=== PATIENT | female | born 1960 | race Caucasian/White ===

== ENCOUNTER 2016-11-07 16:54 | Emergency (ER) | payer MEDICAID, MEDICARE ==
[~2016-11-07] VITALS: Ht 165.1 cm; Wt 74.0 kg
[~2016-11-07 16:54] MED LIST: ALBU8I INH; ASPI325T PO; BACT2CRE TOP; CALC500C6 PO; DILA4TAB10 PO; FOLI1TAB PO; GABA800T PO; MUCI600T PO; OMEP40CA2 PO; PERC10TA27 PO; PRED1TAB PO; PROZ20CA11 PO; STOO100T PO; XANA0.5T PO
[2016-11-07 17:01] VITALS: BP 143/75; PULSE 103; RESP 19; TEMP 98.1; O2SAT 95
[2016-11-07] MEDS ORDERED: SODIUM CHLORIDE 0.9% FLUSH 10 ML FLUSH IVF PRN (17:30)
[2016-11-07 17:38] VITALS: RESP 15; O2SAT 96
[2016-11-07] MEDS: RESP: ALBUTEROL 2.5 MG/IPRATROPIUM 0.5 MG NEB (SCH) INH ×3 (17:45→17:51)
--- NOTE | 2016-11-07 17:50 | PD ---
HPI Chief Complaint: Respiratory Symptoms Time Seen by Provider: 17:16 Travel History International Travel<30 days: No Contact w/Intl Traveler<30days: No Traveled to known affect area: No History of Present Illness HPI Patient's 56-year-old female with a history of "immunocompromise" presents emergency department for evaluation of cough worsening over the past week. Patient is coming by her mother and they think that she has pneumonia. Patient clarifies to mean that she has a history of vasculitis and is on prednisone 10 mg daily for control of this. She states that her counts been well and no other immunosuppressant use. Patient states she's not currently smoking but ordinarily smokes a pack plus a day. Denies any fever. She does endorse congestion and nonproductive dry cough. States symptoms are moderate and gradually worsening. 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 ) Anxiety: Yes Depression: No Heart Rhythm Problems: Yes (MURMUR) Cancer: No Cardiac Catheterization: No Cardiovascular Problems: No High Cholesterol: No Chemotherapy: No Chest Pain: No Congestive Heart Failure: No COPD: Yes Cerebrovascular Accident: No Diabetes: No Diminished Hearing: No Endocrine: No Gastrointestinal Disorders: Yes GERD: Yes Genitourinary: No Headaches: No Hiatal Hernia: No Hypertension: No Immune Disorder: Yes (reynauds, vasculitis, REESE) Implanted Vascular Access Dvce: No Kidney Stones: No Musculoskeletal: Yes (left paralyzed foot) Neurologic: Yes Psychiatric: Yes Reproductive: No Respiratory: No Immunizations Current: No Migraines: No Myocardial Infarction: No Pancreatitis: Yes Radiation Therapy: No Renal Failure: No Seizures: No Sickle Cell Disease: No Sleep Apnea: No Thyroid Disease: No ?: Not Menopausal: Yes Dilation and Curettage (D&C): Yes Tubal Ligation: Yes Past Surgical History AICD: No Appendectomy: Yes Arteriovenous Shunt: No Body Medical Devices: GEL BREAST IMPLANTS Cardiac Surgery: No Coronary Artery Bypass Graft: No Ear Surgery: No Endocrine Surgery: No Eye Surgery: Yes (L orbital fx and subsequent plate 2008) Gynecologic Surgery: Yes (HYSTERECTOMY,D&C, TUBAL LIGATION) Hysterectomy: Yes Insulin Pump: No Joint Replacement: No Neurologic Surgery: No Oral Surgery: Yes Pacemaker: No Thoracic Surgery: No Tonsillectomy: Yes Other Surgery: Yes (PILONIDAL CYST/ Breast implants) Family History Family Myocardial Infarction: Yes (dad) Social History Alcohol Use: Yes (OCC) Tobacco Use: Yes (1/2 -ppd ) Substance Use: No Allergies-Medications (Allergen,Severity, Reaction): Coded Allergies: No Known Allergies (Verified , 11/07/16) Reported Meds & Prescriptions Reported Meds & Active Scripts Active Proair Hfa 8.5 GM Inh (Albuterol Sulfate) 90 Mcg/Act Aer 1 Puff INH Q4H PRN 108 mcg/actuation Azithromycin 250 Mg Tab 250 Mg PO DAILY Prednisone 20 Mg Tab 60 Mg PO DAILY 4 Days Percocet 10-325 mg (Oxycodone-Acetaminophen 10-325 mg) 1 Tab 1 Tab PO Q6H PRN Ventolin Hfa (Albuterol Sulfate) 8 Gm Aero 2 Puff INH Q6 PRN * SHAKE WELL BEFORE USE * okay to substitute with pro-air Reported Mucinex (Guaifenesin) 600 Mg Tabcr 600 Mg PO BID Stool Softener (Miscellaneous Medication) 100 Mg Cap 100 Mg PO DAILY Bactroban 2% Cream (30 gm) (Mupirocin 2% Cream (30 gm)) 2 % Cre 2 % TOP Q12 APPLY TO Dilaudid (Hydromorphone HCl) 4 Mg Tab 4 Mg PO Q4H Prednisone 1 Mg Tab 10 Mg PO DAILY Calcium (Calcium Carbonate) 500 Mg Chw 500 Mg PO BID Prozac (Fluoxetine HCl) 20 Mg Cap 20 Mg PO BID Omeprazole 40 mg (Omeprazole) 40 Mg Cap 40 Mg PO DAILY Xanax 0.5 mg (Alprazolam) 0.5 Mg Tab 0.5 Mg PO TID PRN Aspirin 325 Mg Tab (Aspirin) 325 Mg Tab 325 Mg PO BID Gabapentin 800 Mg Tab 800 Mg PO TID PRN Folate (Folic Acid) 1 Mg Tab 1 Mg PO HS Review of Systems Except as stated in HPI: all other systems reviewed are Neg Physical Exam Narrative GENERAL: Well-developed well-nourished, nontoxic appearance. SKIN: Focused skin assessment warm/dry. HEAD: Atraumatic. Normocephalic. EYES: Pupils equal and round. No scleral icterus. No injection or drainage. ENT: No nasal bleeding or discharge. Mucous membranes pink and moist. NECK: Trachea midline. No JVD. CARDIOVASCULAR: Regular rate and rhythm. No murmur appreciated. RESPIRATORY: No accessory muscle use. Inspiratory and expiratory wheezes and rhonchi consistent with bronchitis. Breath sounds equal bilaterally. GASTROINTESTINAL: Abdomen soft, non-tender, nondistended. Hepatic and splenic margins not palpable. MUSCULOSKELETAL: No obvious deformities. No clubbing. No cyanosis. No edema. NEUROLOGICAL: Awake and alert. No obvious cranial nerve deficits. Motor grossly within normal limits. Normal speech. PSYCHIATRIC: Appropriate mood and affect; insight and judgment normal. Data Data Last Documented VS Vital Signs Date Time Temp Pulse Resp B/P Pulse Ox O2 Delivery O2 Flow Rate FiO2 11/07/16 20:09 20 96 11/07/16 19:04 109 Room Air 11/07/16 19:04 146/77 11/07/16 17:01 98.1 Orders Electrocardiogram (11/07/16 17:26) Basic Metabolic Panel (Bmp) (11/07/16 17:26) Complete Blood Count With Diff (11/07/16 17:26) Chest, Pa & Lat (11/07/16 17:26) Ecg Monitoring (11/07/16 17:26) Iv Access Insert/Monitor (11/07/16 17:26) Oximetry (11/07/16 17:26) Oxygen Administration (11/07/16 17:26) Albuterol-Ipratropium Neb (Duoneb Neb) (11/07/16 17:30) Sodium Chloride 0.9% Flush (Ns Flush) (11/07/16 17:30) Azithromycin (Zithromax) (11/07/16 19:00) Albuterol Hfa Inh (Proair Hfa Inh) (11/07/16 19:00) Prednisone (Deltasone) (11/07/16 19:00) Labs Laboratory Tests Test 11/07/16 17:52 White Blood Count 16.2 TH/MM3 Red Blood Count 5.99 MIL/MM3 Hemoglobin 15.6 GM/DL Hematocrit 49.6 % Mean Corpuscular Volume 82.8 FL Mean Corpuscular Hemoglobin 25.9 PG Mean Corpuscular Hemoglobin 31.3 % Concent Red Cell Distribution Width 16.0 % Platelet Count 452 TH/MM3 Mean Platelet Volume 7.7 FL Neutrophils (%) (Auto) 78.0 % Lymphocytes (%) (Auto) 17.9 % Monocytes (%) (Auto) 3.4 % Eosinophils (%) (Auto) 0.4 % Basophils (%) (Auto) 0.3 % Neutrophils # (Auto) 12.7 TH/MM3 Lymphocytes # (Auto) 2.9 TH/MM3 Monocytes # (Auto) 0.5 TH/MM3 Eosinophils # (Auto) 0.1 TH/MM3 Basophils # (Auto) 0.0 TH/MM3 CBC Comment DIFF FINAL Differential Comment Sodium Level 140 MEQ/L Potassium Level 3.8 MEQ/L Chloride Level 101 MEQ/L Carbon Dioxide Level 32.4 MEQ/L Anion Gap 7 MEQ/L Blood Urea Nitrogen 14 MG/DL Creatinine 1.00 MG/DL Estimat Glomerular Filtration 58 ML/MIN Rate Random Glucose 99 MG/DL Calcium Level 10.2 MG/DL MDM Medical Decision Making Medical Screen Exam Complete: Yes Emergency Medical Condition: Yes Interpretation(s) EKG shows sinus tachycardia at a rate of 103, normal axis normal R-wave progression. No concerning ST-T changes. Intervals otherwise within normal limits. This is a normal EKG except are. EKG was performed after DuoNeb therapy. Differential Diagnosis Bronchitis, pneumonia, COPD, Narrative Course Patient was roomed emergency department, chest x-ray showed no abnormality. Her lung sounds are highly consistent with wheezing bronchitis. Labs are reassuring. She does have minimal elevation of white blood cell count but is on chronic steroids. I discussed the impression with the patient and recommended symptomatically management. She is feeling better after DuoNeb treatments. Discussed need follow-up the primary care physician. Discussed smoking cessation at multiple times during the encounter. She does have a history of vasculitis and accommodation was smoking puts her at extreme risk for stroke in the future. Discussed return to ED criteria. She stable for discharge this time. Diagnosis Primary Impression: Bronchitis Patient Instructions: Acute Bronchitis (DC), General Instructions, How to Stop Smoking (DC) Med/Other Pt SpecificInfo: Prescription(s) given Scripts Albuterol 8.5 GM Inh (Proair Hfa 8.5 GM Inh)90 Mcg/Act Aer1 Puff INH Q4H PRN ( SHORTNESS OF BREATH) #1 INHALER Ref 0 108 mcg/actuation Prov:Gen Ku MD 11/07/16 Azithromycin 250 Mg [id number] Mg PO DAILY #4 TAB Ref 0 Prov:Gen Ku MD 11/07/16 Prednisone 20 Mg Tab60 Mg PO DAILY 4 Days Ref 0 Prov:Gen Ku MD 11/07/16 Disposition: 01 DISCHARGE HOME Condition: Stable Gen Ku MD November 07, 2016 17:50
--- NOTE | 2016-11-07 17:55 | RADHPO ---
EXAM DATE/TIME: 11/07/2016 17:37 [facility] COMPARISON: CHEST PA & LAT, July 12, 2015, 14:32. INDICATIONS : Short of breath. Weakness. MEDICAL HISTORY : None. SURGICAL HISTORY : None. ENCOUNTER: Initial ACUITY: 3 days PAIN SCORE: 7/10 LOCATION: Bilateral chest FINDINGS: PA and lateral views of the chest demonstrate the lungs to be symmetrically aerated without evidence of mass, infiltrate or effusion. The cardiomediastinal contours are unremarkable. Osseous structure s are intact. CONCLUSION: No acute disease. Izaiah Toney MD FACR on November 07, 2016 at 17:53 Board Certified Radiologist. This report was verified electronically.
[2016-11-07 18:03] LABS: AUTOMATED NEUTROPHIL # 12.7 TH/MM3 (1.8-7.7); BASOPHIL % 0.3 % (0.0-2.0); EOSINOPHIL # 0.1 TH/MM3 (0-0.4); EOSINOPHIL % 0.4 % (0.0-4.0); HEMATOCRIT 49.6 % (35.0-46.0); LYMPH % 17.9 % (9.0-44.0); LYMPHOCYTE # 2.9 TH/MM3 (1.0-4.8); MEAN CELL VOLUME 82.8 FL (80.0-100.0); MEAN CORPUSCULAR HEMOGLOBIN 25.9 PG (27.0-34.0); MEAN CORPUSCULAR HGB CONC 31.3 % (32.0-36.0); MONO % 3.4 % (0.0-8.0); PLATELET COUNT 452 TH/MM3 (150-450); RED BLOOD COUNT 5.99 MIL/MM3 (4.00-5.30); WHITE BLOOD COUNT 16.2 TH/MM3 (4.0-11.0)
[2016-11-07 18:08] LABS: HEMO FLAGS DIFF FINAL
[2016-11-07 18:16] LABS: POTASSIUM 3.8 MEQ/L (3.5-5.1)
[2016-11-07 18:19] LABS: BICARBONATE 32.4 MEQ/L (21.0-32.0)
[2016-11-07] MEDS ORDERED: ALBUAER3 INH (18:55)
[2016-11-07] MEDS ORDERED: PRED20 PO (18:55)
[2016-11-07] MEDS ORDERED: AZIT250T3 PO (18:55)
[2016-11-07] MEDS ORDERED: AZITHROMYCIN 250 MG TAB PO ONE (19:00)
[2016-11-07] MEDS ORDERED: predniSONE 20 MG TAB PO ONE (19:00)
[2016-11-07] MEDS ORDERED: ALBUTEROL SULFATE 90 MCG/ACT HFA 8 GM INHALER INH ONE (19:00)
[2016-11-07 19:04] VITALS: BP 146/77; PULSE 108; RESP 20; O2SAT 98
--- NOTE | 2016-11-08 14:49 | EKG ---
Date Performed: 11/07/2016 Time Performed: 18:15:28 PTAGE: 56 years EKG: Sinus tachycardia Normal ECG except for rate PREVIOUS TRACING : 12/22/2014 11.39 Since previous tracing, no significant change noted DOCTOR: Krzysztof Mcmullen Interpretating Date/Time 11/08/2016 14:49:29
== END 2016-11-07 20:10 | disposition home or self-care (01) ==
LOC: PHED 16:54
DX: J40 Bronchitis, not specified as acute or chronic (principal); I77.6 Arteritis, unspecified; R00.0 Tachycardia, unspecified; I73.00 Raynaud's syndrome without gangrene; F41.9 Anxiety disorder, unspecified; R01.1 Cardiac murmur, unspecified; J44.9 Chronic obstructive pulmonary disease, unspecified; F17.210 Nicotine dependence, cigarettes, uncomplicated
CPT/HCPCS: 71020; 80048; 85025; 93005; 94640; 94664; 99285; J7512

== ENCOUNTER 2016-12-23 21:42 | Inpatient (IN) | payer MEDICARE, MEDICAID ==
[~2016-12-23] VITALS: Ht 165.1 cm; Wt 76.5 kg
[~2016-12-23 21:42] MED LIST changes: +ALBUAER3 INH; +AZIT250T3 PO; +PRED20 PO
[2016-12-23 21:53] VITALS: BP 128/67; PULSE 101; RESP 16; TEMP 99.4; O2SAT 98
[2016-12-23 22:30] VITALS: BP 124/70; PULSE 96; RESP 18; O2SAT 95
[2016-12-23] MEDS ORDERED: ONDANSETRON HCL 4 MG/2 ML VIAL IV PUSH ONE (22:45)
[2016-12-23] MEDS ORDERED: HYDROmorphone HCL PF 1 MG/ML VIAL IV PUSH ONE (22:45)
[2016-12-23] MEDS ORDERED: methylPREDNISolone SOD SUCC 125 MG/2 ML VIAL IV PUSH ONE (22:45)
--- NOTE | 2016-12-23 22:46 | PD ---
HPI Chief Complaint: aching all over Time Seen by Provider: 22:18 Travel History International Travel<30 days: No Contact w/Intl Traveler<30days: No Traveled to known affect area: No History of Present Illness HPI This 56-year-old female says she is aching all over. She says she has an autoimmune disease. She has many notes disease and vasculitis. She was well until December 2012 when she became paralyzed in the left foot. This was attributed to autoimmune disease. She sees . She is currently on Imuran 50 mg a day and prednisone 10 mg. She has been on Dilaudid. She was on 4 mg 4 times a day but has been tapered to 2 mg twice a day. She had bilateral mastectomy done a few months ago because she had artificial breaths and was thought she might be having an autoimmune reaction to the implants. Today she is having some left-sided chest pain. She aches all over area she has pain in the left side of her mouth. She has lost several teeth and has been told that due to her autoimmune disease. She says that nobody can figure out wrong with her. She has got [facility] and they cannot figure it out. She has been having intermittent headache for the past month. She says she has no prior history of headaches. She has a throbbing bilateral headache which is sometimes occipital. She has no numbness tingling or paresthesias except for the weakness of the left foot foot. 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 ) Anxiety: Yes Depression: No Heart Rhythm Problems: Yes (MURMUR) Cancer: No Cardiac Catheterization: No Cardiovascular Problems: No High Cholesterol: No Chemotherapy: No Chest Pain: No Congestive Heart Failure: No COPD: Yes Cerebrovascular Accident: No Diabetes: No Diminished Hearing: No Endocrine: No Gastrointestinal Disorders: Yes GERD: Yes Genitourinary: No Headaches: No Hiatal Hernia: No Hypertension: No Immune Disorder: Yes (reynauds, vasculitis, REESE) Implanted Vascular Access Dvce: No Kidney Stones: No Musculoskeletal: Yes (left paralyzed foot) Neurologic: Yes Psychiatric: Yes Reproductive: No Respiratory: No Immunizations Current: No Migraines: No Myocardial Infarction: No Pancreatitis: Yes Radiation Therapy: No Renal Failure: No Seizures: No Sickle Cell Disease: No Sleep Apnea: No Thyroid Disease: No Menopausal: Yes Dilation and Curettage (D&C): Yes Tubal Ligation: Yes Past Surgical History AICD: No Appendectomy: Yes Arteriovenous Shunt: No Body Medical Devices: GEL BREAST IMPLANTS Cardiac Surgery: No Coronary Artery Bypass Graft: No Ear Surgery: No Endocrine Surgery: No Eye Surgery: Yes (L orbital fx and subsequent plate 2009) Gynecologic Surgery: Yes (HYSTERECTOMY,D&C, TUBAL LIGATION) Hysterectomy: Yes Insulin Pump: No Joint Replacement: No Neurologic Surgery: No Oral Surgery: Yes Pacemaker: No Thoracic Surgery: No Tonsillectomy: Yes Other Surgery: Yes (PILONIDAL CYST/ Breast implants) Social History Alcohol Use: Yes (OCC) Tobacco Use: Yes (/2 -ppd ) Substance Use: No Allergies-Medications (Allergen,Severity, Reaction): Coded Allergies: No Known Allergies (Verified , 11/07/16) Reported Meds & Prescriptions Reported Meds & Active Scripts Active Medrol Dosepak (Methylprednisolone) 4 Mg Dspk 4 Mg PO DIRECTED Per Pharmacist direction Penicillin V Potassium 500 Mg Tab 500 Mg PO Q6H Proair Hfa 8.5 GM Inh (Albuterol Sulfate) 90 Mcg/Act Aer 1 Puff INH Q4H PRN 108 mcg/actuation Azithromycin 250 Mg Tab 250 Mg PO DAILY Prednisone 20 Mg Tab 60 Mg PO DAILY 4 Days Percocet 10-325 mg (Oxycodone-Acetaminophen 10-325 mg) 1 Tab 1 Tab PO Q6H PRN Ventolin Hfa (Albuterol Sulfate) 8 Gm Aero 2 Puff INH Q6 PRN * SHAKE WELL BEFORE USE * okay to substitute with pro-air Reported Mucinex (Guaifenesin) 600 Mg Tabcr 600 Mg PO BID Stool Softener (Miscellaneous Medication) 100 Mg Cap 100 Mg PO DAILY Bactroban 2% Cream (30 gm) (Mupirocin 2% Cream (30 gm)) 2 % Cre 2 % TOP Q12 APPLY TO Dilaudid (Hydromorphone HCl) 4 Mg Tab 4 Mg PO Q4H Prednisone 1 Mg Tab 10 Mg PO DAILY Calcium (Calcium Carbonate) 500 Mg Chw 500 Mg PO BID Prozac (Fluoxetine HCl) 20 Mg Cap 20 Mg PO BID Omeprazole 40 mg (Omeprazole) 40 Mg Cap 40 Mg PO DAILY Xanax 0.5 mg (Alprazolam) 0.5 Mg Tab 0.5 Mg PO TID PRN Aspirin 325 Mg Tab (Aspirin) 325 Mg Tab 325 Mg PO BID Gabapentin 800 Mg Tab 800 Mg PO TID PRN Folate (Folic Acid) 1 Mg Tab 1 Mg PO HS Review of Systems General / Constitutional: No: Fever, Chills Eyes: Positive: Drainage, No: Diploplia HENT: Positive: Headaches Cardiovascular: Positive: Chest Pain or Discomfort Respiratory: No: Cough, Shortness of Breath Gastrointestinal: No: Nausea, Vomiting Genitourinary: No: Urgency, Frequency Musculoskeletal: No: Myalgias, Arthralgias Skin: No Rash, No Itching Neurologic: Positive: Weakness, No: Dizziness Physical Exam Narrative GENERAL: Anxious female SKIN: Focused skin assessment warm/dry. HEAD: Atraumatic. Normocephalic. EYES: Pupils equal and round. No scleral icterus. No injection or drainage. ENT: No nasal bleeding or discharge. Mucous membranes pink and moist. There are several teeth missing. She is tender in the left upper gumline NECK: Trachea midline. No JVD. CARDIOVASCULAR: Regular rate and rhythm. No murmur appreciated. RESPIRATORY: No accessory muscle use. Clear to auscultation. Breath sounds equal bilaterally. Left precordial tenderness GASTROINTESTINAL: Abdomen soft, non-tender, nondistended. Hepatic and splenic margins not palpable. MUSCULOSKELETAL: No obvious deformities. No clubbing. No cyanosis. No edema. NEUROLOGICAL: Awake and alert. No obvious cranial nerve deficits. Distal left foot PSYCHIATRIC: Appropriate mood and affect; insight and judgment normal. Data Data Last Documented VS Vital Signs Date Time Temp Pulse Resp B/P Pulse Ox O2 Delivery O2 Flow Rate FiO2 12/23/16 23:30 103.1 96 18 108/66 97 Room Air Orders Electrocardiogram (12/23/16 22:36) Complete Blood Count With Diff (12/23/16 22:36) Basic Metabolic Panel (Bmp) (12/23/16 22:36) Troponin I (12/23/16 22:36) Westergren Sedimentation Rate (12/23/16 22:36) Methylprednisolone So Succ Inj (Solumedr (12/23/16 22:45) Hydromorphone Pf Inj (Dilaudid Pf Inj) (12/23/16 22:45) Ondansetron Inj (Zofran Inj) (12/23/16 22:45) Ct Brain W/O Iv Contrast(Rout) (12/23/16 ) Urinalysis - C+S If Indicated (12/23/16 23:35) Chest, Single Ap (12/23/16 23:35) Acetaminophen (Tylenol) (12/23/16 23:45) Labs Laboratory Tests Test 12/23/16 23:00 White Blood Count 13.4 TH/MM3 Red Blood Count 5.30 MIL/MM3 Hemoglobin 13.9 GM/DL Hematocrit 43.1 % Mean Corpuscular Volume 81.3 FL Mean Corpuscular Hemoglobin 26.3 PG Mean Corpuscular Hemoglobin 32.3 % Concent Red Cell Distribution Width 16.7 % Platelet Count 255 TH/MM3 Mean Platelet Volume 7.4 FL Neutrophils (%) (Auto) 83.2 % Lymphocytes (%) (Auto) 9.7 % Monocytes (%) (Auto) 4.2 % Eosinophils (%) (Auto) 1.5 % Basophils (%) (Auto) 1.4 % Neutrophils # (Auto) 11.1 TH/MM3 Lymphocytes # (Auto) 1.3 TH/MM3 Monocytes # (Auto) 0.6 TH/MM3 Eosinophils # (Auto) 0.2 TH/MM3 Basophils # (Auto) 0.2 TH/MM3 CBC Comment DIFF FINAL Differential Comment Erythrocyte Sedimentation Rate 6 mm/hr Sodium Level 138 MEQ/L Potassium Level 3.9 MEQ/L Chloride Level 104 MEQ/L Carbon Dioxide Level 25.4 MEQ/L Anion Gap 9 MEQ/L Blood Urea Nitrogen 16 MG/DL Creatinine 0.81 MG/DL Estimat Glomerular Filtration 74 ML/MIN Rate Random Glucose 85 MG/DL Calcium Level 8.9 MG/DL Troponin I LESS THAN 0.02 NG/ML [facility] Medical Decision Making Medical Screen Exam Complete: Yes Emergency Medical Condition: Yes Medical Record Reviewed: Yes Differential Diagnosis Differential includes dental abscess, autoimmune disease, headache Narrative Course After initial evaluation patient's temperature was repeated and is come back at 103. This point a more complete sepsis evaluation has been ordered including blood cultures urine and chest x-ray. Results are pending Scripts Methylprednisolone Dosepak (Medrol Dosepak)4 Mg Dspk4 Mg PO DIRECTED #1 DSPK Ref 0 Per Pharmacist direction Prov:Darci Nelson MD 12/23/16 Penicillin V Potassium 500 Mg [id number] Mg PO Q6H #40 TAB Ref 0 Prov:Darci Nelson MD 12/23/16 Darci Nelson MD Dec 23, 2016 22:46
[2016-12-23] MEDS ORDERED: MEDR4PAK PO (22:47)
[2016-12-23] MEDS ORDERED: PENI500T PO (22:47)
[2016-12-23 23:15] LABS: AUTOMATED NEUTROPHIL # 11.1 TH/MM3 (1.8-7.7); BASOPHIL # 0.2 TH/MM3 (0-0.2); BASOPHIL % 1.4 % (0.0-2.0); EOSINOPHIL # 0.2 TH/MM3 (0-0.4); EOSINOPHIL % 1.5 % (0.0-4.0); HEMATOCRIT 43.1 % (35.0-46.0); LYMPH % 9.7 % (9.0-44.0); LYMPHOCYTE # 1.3 TH/MM3 (1.0-4.8); MEAN CELL VOLUME 81.3 FL (80.0-100.0); MEAN CORPUSCULAR HEMOGLOBIN 26.3 PG (27.0-34.0); MEAN CORPUSCULAR HGB CONC 32.3 % (32.0-36.0); MONO % 4.2 % (0.0-8.0); NEUT % 83.2 % (16.0-70.0); PLATELET COUNT 255 TH/MM3 (150-450); RED CELL DISTRIBUTION WIDTH 16.7 % (11.6-17.2); WHITE BLOOD COUNT 13.4 TH/MM3 (4.0-11.0)
[2016-12-23 23:17] LABS: HEMO FLAGS DIFF FINAL
[2016-12-23 23:25] LABS: CHLORIDE 104 MEQ/L (98-107); POTASSIUM 3.9 MEQ/L (3.5-5.1); SODIUM (NA) 138 MEQ/L (136-145)
[2016-12-23 23:28] LABS: ANION GAP 9 MEQ/L (5-15); BICARBONATE 25.4 MEQ/L (21.0-32.0); BLOOD UREA NITROGEN 16 MG/DL (7-18)
[2016-12-23 23:30] VITALS: BP 108/66; PULSE 96; RESP 18; TEMP 103.1; O2SAT 97
[2016-12-23 23:31] LABS: GLOMERULAR FILTRATION RATE 74 ML/MIN (>89)
[2016-12-23] MEDS ORDERED: ACETAMINOPHEN 325 MG TAB PO ONE (23:45)
[2016-12-24] VITALS (36 sets, daily range): BP systolic 85–146; BP diastolic 40–61; PULSE 42–102; RESP 16–33; TEMP 97.4–100.9; O2SAT 90–97
[2016-12-24] MEDS ORDERED: SODIUM CHLOR 0.9% 1000 ML INJ 1,000 ML IV ONE ×4 (00:15→04:30)
--- NOTE | 2016-12-24 00:25 | RADRPT ---
EXAM DATE/TIME: 12/23/2016 23:42 [facility] COMPARISON: CHEST SINGLE AP, April 03, 2014, 16:23. INDICATIONS : Fever starting today MEDICAL HISTORY : None. SURGICAL HISTORY : None. ENCOUNTER: Initial ACUITY: 1 day PAIN SCORE: 0/10 LOCATION: Bilateral chest FINDINGS: Single AP view of the chest. The lungs are clear. Cardiomediastinal silhouette within normal limits. No evidence of pleural effusion or pneumothorax. CONCLUSION: No acute cardiopulmonary disease identified. Denny Clark MD on December 24, 2016 at 0:22 Board Certified Radiologist. This report was verified electronically.
--- NOTE | 2016-12-24 00:25 | PD ---
Physical Exam Date Seen by Provider: Dec 24, 2016 Time Seen by Provider: 00:24 Narrative Accepted in transfer of care from Dr. Hartmann GENERAL: Well-developed well-nourished female in no apparent distress or discomfort; GCS 15 SKIN: Warm and dry. HEAD: Normocephalic. EYES: No scleral icterus. No injection or drainage. ENT: Mucous membranes moist airway is patent; no gingival edema fluctuance or tenderness or purulent drainage to area of left axilla; poor dentition throughout. Bilateral tympanic membranes no redness no dullness to loss of landmarks. NECK: Supple, trachea midline. No JVD or lymphadenopathy. Supple no meningismus no nuchal rigidity on flexion and extension. CARDIOVASCULAR: Regular rate and rhythm without murmurs, gallops, or rubs. RESPIRATORY: Breath sounds equal bilaterally. No accessory muscle use. GASTROINTESTINAL: Abdomen soft, non-tender, nondistended. MUSCULOSKELETAL: No cyanosis, or edema. BACK: Nontender without obvious deformity. No CVA tenderness. Data Data Last Documented VS Vital Signs Date Time Temp Pulse Resp B/P Pulse Ox O2 Delivery O2 Flow Rate FiO2 12/24/16 01:25 99.3 85 18 107/57 95 Room Air Orders Electrocardiogram (12/23/16 22:36) Complete Blood Count With Diff (12/23/16 22:36) Basic Metabolic Panel (Bmp) (12/23/16 22:36) Troponin I (12/23/16 22:36) Westergren Sedimentation Rate (12/23/16 22:36) Methylprednisolone So Succ Inj (Solumedr (12/23/16 22:45) Hydromorphone Pf Inj (Dilaudid Pf Inj) (12/23/16 22:45) Ondansetron Inj (Zofran Inj) (12/23/16 22:45) Ct Brain W/O Iv Contrast(Rout) (12/23/16 ) Urinalysis - C+S If Indicated (12/23/16 23:35) Chest, Single Ap (12/23/16 23:35) Acetaminophen (Tylenol) (12/23/16 23:45) Blood Culture (12/24/16 00:14) Lactic Acid Sepsis Protocol (12/24/16 00:14) Sodium Chlor 0.9% 1000 Ml Inj (Ns 1000 M (12/24/16 00:15) Act Partial Throm Time (Ptt) (12/24/16 01:18) Prothrombin Time / Inr (Pt) (12/24/16 01:18) Vancomycin Inj (Vancomycin Inj) (12/24/16 01:30) Piperacil-Tazo 4.5 Gm Premix (Zosyn 4.5 (12/24/16 01:30) Vital Signs (Adult) Q4H (12/24/16 01:40) Activity Oob With Assistance (12/24/16 01:40) Air Brush Decorator / Telemetry .CONTINUOUS (12/24/16 01:40) Diet Heart Healthy (12/24/16 Breakfast) Sodium Chloride 0.9% Flush (Ns Flush) (12/24/16 01:45) Sodium Chloride 0.9% Flush (Ns Flush) (12/24/16 09:00) Basic Metabolic Panel (Bmp) (12/25/16 06:00) Complete Blood Count With Diff (12/25/16 06:00) Case Management Consult (12/24/16 01:40) Naloxone Inj (Narcan Inj) (12/24/16 01:45) Admit To Inpatient (12/24/16 ) Inpatient Certification (12/24/16 ) Admit Order (Ed Use Only) (12/24/16 ) ^ Saline Lock (12/24/16 01:41) Resp Oxygen David C Titrat 1-4 L (12/24/16 ) Notify Dr: Other (12/24/16 01:41) Vancomycin Consult Pharmacy (Vancomycin (12/24/16 01:45) Piperacil-Tazo 4.5 Gm Premix (Zosyn 4.5 (12/24/16 08:00) Labs Laboratory Tests Test 12/23/16 12/24/16 12/24/16 23:00 00:15 00:35 White Blood Count 13.4 TH/MM3 Red Blood Count 5.30 MIL/MM3 Hemoglobin 13.9 GM/DL Hematocrit 43.1 % Mean Corpuscular Volume 81.3 FL Mean Corpuscular Hemoglobin 26.3 PG Mean Corpuscular Hemoglobin 32.3 % Concent Red Cell Distribution Width 16.7 % Platelet Count 255 TH/MM3 Mean Platelet Volume 7.4 FL Neutrophils (%) (Auto) 83.2 % Lymphocytes (%) (Auto) 9.7 % Monocytes (%) (Auto) 4.2 % Eosinophils (%) (Auto) 1.5 % Basophils (%) (Auto) 1.4 % Neutrophils # (Auto) 11.1 TH/MM3 Lymphocytes # (Auto) 1.3 TH/MM3 Monocytes # (Auto) 0.6 TH/MM3 Eosinophils # (Auto) 0.2 TH/MM3 Basophils # (Auto) 0.2 TH/MM3 CBC Comment DIFF FINAL Differential Comment Erythrocyte Sedimentation Rate 6 mm/hr Sodium Level 138 MEQ/L Potassium Level 3.9 MEQ/L Chloride Level 104 MEQ/L Carbon Dioxide Level 25.4 MEQ/L Anion Gap 9 MEQ/L Blood Urea Nitrogen 16 MG/DL Creatinine 0.81 MG/DL Estimat Glomerular Filtration 74 ML/MIN Rate Random Glucose 85 MG/DL Calcium Level 8.9 MG/DL Troponin I LESS THAN 0.02 NG/ML Urine Color YELLOW Urine Turbidity SLIGHT Urine pH 7.0 Urine Specific [place] 1.023 Urine Protein TRACE mg/dL Urine Glucose (UA) NEG mg/dL Urine Ketones NEG mg/dL Urine Occult Blood SMALL Urine Nitrite NEG Urine Bilirubin NEGATIVE Urine Leukocyte Esterase TRACE Urine RBC 4-9 /hpf Urine WBC 0-2 /hpf Urine Squamous Epithelial 6-8 /hpf Cells Urine Bacteria OCC /hpf Microscopic Urinalysis Comment CULT NOT INDICATED Lactic Acid Level 1.2 mmol/L [facility] Medical Record Reviewed: Yes Supervised Visit with RODOLFO: No Interpretation(s) Last Impressions Chest X-Ray 12/23/16 2335 Signed Impressions: Service Date/Time: Friday, December 23, 2016 23:42 - CONCLUSION: No acute cardiopulmonary disease identified. Denny Clark MD Head CT 12/23/16 0000 Signed Impressions: Service Date/Time: Friday, December 23, 2016 23:43 - CONCLUSION: No acute intracranial findings. Denyn Clark MD CBC & BMP Diagram 12/23/16 23:00 Vital Signs Date Time Temp Pulse Resp B/P Pulse Ox O2 Delivery O2 Flow Rate FiO2 12/24/16 01:25 99.3 85 18 107/57 95 Room Air 12/24/16 00:29 18 12/24/16 00:15 100.9 102 18 112/53 95 Room Air 12/23/16 23:30 103.1 96 18 108/66 97 Room Air 12/23/16 23:00 Room Air 12/23/16 22:30 96 18 124/70 95 Room Air 12/23/16 21:53 99.4 101 16 128/67 98 Differential Diagnosis Accepted in transfer of care from Dr. Hartmann; please refer to his dictation Narrative Course Accepted in transfer of care from Dr. Hartmann for pending imaging studies and patient disposition with plan to admit for IV antibiotics with history of autoimmune disorder with immunosuppression and developing fever during stay in the ED -- unclear source and pending cultures; also pendnig CT and CXR CT brain noncontrast reveals no acute abnormality; chest x-ray no lobar infiltrate or vascular congestion or effusion; total white cell count is mildly elevated with 13,400 white cell count and 82% neutrophils by automated differential; metabolic panel is found to be in normal range sedimentation rate is 6, not elevated lactic acid is 1.2, not elevated urinalysis is thinking head with anticipated squamous cell contamination 6-8 squamous epithelial cells culture not indicated. Patient reports that she feels well has defervesced after acetaminophen for fever. Patient reexamined again; again no meningismus or nuchal rigidity. Patient aware of plan for admission for IV fluids IV antibiotics and pending culture results as no obvious source of infection Patient's case discussed with on-call [facility] MD -- [facility] with presumptive IV antibiotic coverage and patient with no obvious source of infection mild leukocytosis fever and immunocompromised due to autoimmune disorder. Patient waiting for admission to floor has received Zosyn presumptively and an process of receiving vancomycin developed urticarial rash with pruritus and lowered blood pressure given 2 L bolus of normal saline; admitting physician aware of allergic reaction to vancomycin which has been discontinued patient administered Benadryl 25 mg IV Pepcid 2 mg IV had previously received Solu- Medrol 125 mg IV and epinephrine 1-1000 0.3 cc IM; blood pressure 105/52 heart rate 72 respirations 18 and nonlabored with O2 saturation of 95-96% on room air ; denies any lip tongue or throat swelling no visible angioedema no stridor or hoarseness lung sounds are clear to auscultation; no nausea no vomiting no abdominal cramping. @ 4:09 AM after discontinuing vancomycin; administering benadryl 25 mg iv pepcid 20 mg iv and epinephrine 1:100 0.3ml im urticaria right wrist resolved. @ 05:55 patient remains an ED hold and again hypotensive BP: 89/47 HR 82; O2 sat 97% RR: 16-18 non labored; Physical Trainer notified and [facility] MD admitting MD notified and admission will be changed to ICU; per vacuum form operator Dr Camacho has seen patient in the ED will see patient in consultation; discussed with Dr Carrera --patient will stay on [facility] service with vacuum form operator consultation. In view of chronic steroid therapy and recent pulse dose of steroid --will cover for adrenal insufficiency with solucortef Sepsis Criteria SIRS Criteria (2 or more): Temp > 100.9 or < 96.8, Heart rate over 90, WBC > 49406, < 4000 or > 10% bands Sepsis Criteria (SIRS+source): Infect source susp/known Criteria Outcome: Meets SIRS criteria, Meets sepsis criteria Physician Communication Physician Communication discussed with Dr Carrera for admission Diagnosis Primary Impression: Sepsis Qualified Code: A41.9 - Sepsis, due to unspecified organism Additional Impression: Allergic reaction to drug Qualified Code: T78.40XA - Allergic reaction to drug, initial encounter Admitting Information Admitting Physician Requests: Admit Camila Hooks MD Dec 24, 2016 00:25
--- NOTE | 2016-12-24 00:39 | RADRPT ---
EXAM DATE/TIME: 12/23/2016 23:43 [place] COMPARISON: CT BRAIN W/O CONTRAST, July 12, 2015, 15:03. INDICATIONS : Cephalgia. RADIATION DOSE: 63.01 CTDIvol (mGy) MEDICAL HISTORY : None SURGICAL HISTORY : None. ENCOUNTER: Initial ACUITY: 1 day PAIN SCALE: 8/10 LOCATION: cranial TECHNIQUE: Multiple contiguous axial images were obtained of the head. Using automated exposure control and adj ustment of the mA and/or kV according to patient size, radiation dose was kept as low as reasonably a chievable to obtain optimal diagnostic quality images. DICOM format image data is available electro nically for review and comparison. FINDINGS: CEREBRUM: The ventricles are normal for age. No evidence of midline shift, mass lesion, hemorrhage or acute in farction. No extra-axial fluid collections are seen. POSTERIOR FOSSA: The cerebellum and brainstem are intact. The 4th ventricle is midline. The cerebellopontine angle i s unremarkable. EXTRACRANIAL: The visualized portion of the orbits is intact. SKULL: The calvaria is intact. No evidence of skull fracture. CONCLUSION: No acute intracranial findings. Denny Clark MD on December 24, 2016 at 0:34 Board Certified Radiologist. This report was verified electronically.
[2016-12-24] MEDS ORDERED: ALPR.5 PO (00:50)
[2016-12-24] MEDS ORDERED: ASPI325T PO (00:51)
[2016-12-24] MEDS ORDERED: CALC600T4 PO (00:53)
[2016-12-24] MEDS ORDERED: PRED10 PO (00:54)
[2016-12-24] MEDS ORDERED: IMUR50TA PO (00:54)
[2016-12-24] MEDS ORDERED: FOLI1TAB6 PO (00:55)
[2016-12-24] MEDS ORDERED: PROZ20CA11 PO (00:55)
[2016-12-24] MEDS ORDERED: GABA800T PO (00:56)
[2016-12-24] MEDS ORDERED: DILA2TAB2 PO (00:56)
[2016-12-24 01:04] LABS: URINE COLOR YELLOW (YELLW/STRAW)
[2016-12-24 01:05] LABS: BLOOD, URINE SMALL (NEG); GLUCOSE,URINE NEG (NEG); KETONE, URINE NEG (NEG); NITRITE,URINE NEG (NEG)
[2016-12-24 01:06] LABS: BACTERIA, URINE OCC /hpf; COMMENT (UR) CULT NOT INDICATED; CULTURE IF INDICATED CULT NOT INDICATED; WBC, URINE 0-2 /hpf (0-5)
[2016-12-24] MEDS ORDERED: PIPERACIL-TAZO 4.5 GM PREMIX 100 ML IV ONE (01:30)
[2016-12-24] MEDS ORDERED: VANCOMYCIN INJ 1,000 MG in SODIUM CHLOR 0.9% 250 ML INJ 250 ML IV ONE (01:30)
[2016-12-24] MEDS ORDERED: Vancomycin Consult Pharmacy 1 EA OTHER SCH (01:45)
[2016-12-24] MEDS ORDERED: SODIUM CHLORIDE 0.9% FLUSH 10 ML FLUSH IV FLUSH PRN ×2 (01:45→03:45)
[2016-12-24] MEDS ORDERED: SODIUM CHLORIDE 0.9% FLUSH 10 ML FLUSH IVF PRN (01:45)
[2016-12-24] MEDS ORDERED: NALOXONE HCL 0.4 MG/ML AMP IV PRN (01:45)
[2016-12-24 02:44] LABS: APTT (PATIENT) 29.1 SEC (24.3-30.1); PROTHROMBIN TIME - PATIENT 11.6 SEC (9.8-11.6)
[2016-12-24] MEDS ORDERED: FAMOTIDINE 20 MG/2 ML VIAL IV PUSH ONE (03:45)
[2016-12-24] MEDS ORDERED: diphenhydrAMINE HCL 50 MG/ML VIAL IVP ONE (03:45)
[2016-12-24] MEDS ORDERED: EPINEPHrine HCL (1:1000) 1 MG/ML VIAL IM ONE (04:00)
[2016-12-24] MEDS ORDERED: HYDROCORTISONE SOD SUCCINATE 100 MG VIAL IV PUSH ONE (06:15)
[2016-12-24] MEDS ORDERED: LINEZOLID 600 MG PREMIX 300 ML IV ONE (06:15)
[2016-12-24] MEDS: PIPERACIL-TAZO 4.5 GM PREMIX 100 ML IV SCH ×3 (08:00→20:32)
--- NOTE | 2016-12-24 08:34 | EKG ---
Date Performed: 12/23/2016 Time Performed: 23:28:52 PTAGE: 56 years EKG: Sinus rhythm NORMAL ECG PREVIOUS TRACING : 11/07/2016 18.15 No significant change from previous tracing noted. DOCTOR: David Rangel Interpretating Date/Time 12/24/2016 08:33:33
[2016-12-24] MEDS ORDERED: SODIUM CHLORIDE 0.9% FLUSH 10 ML FLUSH IV FLUSH SCH (09:00)
[2016-12-24] MEDS: PANTOPRAZOLE SOD 40 MG DELAYED RELEASE TAB PO SCH (09:00)
[2016-12-24] MEDS: SODIUM CHLORIDE 0.9% FLUSH 10 ML FLUSH IV FLUSH SCH ×2 (09:00→20:33)
--- NOTE | 2016-12-24 11:40 | HHI.HP ---
HPI Service [facility] Primary Care Physician Non-Staff Admission Diagnosis sepsis Diagnoses: Travel History International Travel<30 Days: No Contact w/Intl Traveler <30 Da: No Traveled to Known Affected Are: No History of Present Illness 56-year-old female with PMH of REESE/Raynauds, left dropped foot, who came to the ED for further evaluation with complaints of aching all over like she was hit by a bus. She says she has an autoimmune disease. She has many notes disease and vasculitis. She was well until December 2012 when she became paralyzed in the left foot. This was attributed to autoimmune disease. She sees her rheumatology. She is currently on Imuran 50 mg a day and prednisone 10 mg. She has been on Dilaudid. She was on 4 mg 4 times a day but has been tapered to 2 mg twice a day. She had bilateral mastectomy done a few months ago because she had artificial breaths and was thought she might be having an autoimmune reaction to the implants. Today she is having some left-sided chest pain. She aches all over area she has pain in the left side of her mouth. She has lost several teeth and has been told that due to her autoimmune disease. She says that nobody can figure out what's wrong with her. She has got [facility] and they cannot figure it out. She has been having intermittent headache for the past month. She says she has no prior history of headaches. She has a throbbing bilateral headache which is sometimes occipital. She has no numbness tingling or paresthesias except for the weakness of the left foot foot. Says she has left paralyzed foot and dropped foot. Review of Systems Except as stated in HPI: all other systems reviewed are Neg Past Family Social History Past Medical History REESE/Raynauds, left dropped foot, depression/anxiety Past Surgical History Hysterectomy, D&C, tubal ligation Left orbital fracture and subsequent plate placement in 2008 Had gel breast implants status post removal recently approximately one month ago Reported Medications Reported Meds & Active Scripts Active Proair Hfa 8.5 GM Inh (Albuterol Sulfate) 90 Mcg/Act Aer 1 Puff INH Q4H PRN 108 mcg/actuation Reported Dilaudid (Hydromorphone HCl) 2 Mg Tab 2 Mg PO BID Gabapentin 800 Mg Tab 800 Mg PO TID Folic Acid 1 Mg Tablet 1 Mg PO HS Prozac (Fluoxetine HCl) 20 Mg Cap 20 Mg PO BID Imuran (Azathioprine) 50 Mg Tab 50 Mg PO DAILY Hazardous agent: use appropriate precautions for handling and disposal. Prednisone 10 Mg Tab 10 Mg PO DAILY Calcium Carbonate 1,500 Mg Tab 500 Mg PO BID 1,500 mg calcium carbonate (600 mg elemental calcium) Aspirin 325 Mg Tab 325 Mg PO BID Xanax (Alprazolam) 0.5 Mg Tab 0.5 Mg PO BID PRN Allergies: Coded Allergies: Vancomycin (Verified Allergy, Severe, Rash, 12/24/16) 12/24/16 Family History Mother with COPD Social History Occasional alcohol use. Denies illicit drug use. She is smoking cigarettes half a pack a day Physical Exam Vital Signs Vital Signs Date Time Temp Pulse Resp B/P Pulse Ox O2 Delivery O2 Flow Rate FiO2 12/24/16 11:00 50 22 117/50 12/24/16 10:00 54 24 109/50 91 12/24/16 09:00 60 33 108/52 91 12/24/16 08:00 97.5 52 16 92/42 94 12/24/16 07:51 103/45 12/24/16 07:25 97.6 57 16 116/54 92 Room Air 12/24/16 06:40 84 18 104/49 97 Room Air 12/24/16 05:45 97.6 88 18 89/42 97 Room Air 12/24/16 04:45 88 18 102/49 96 Room Air 12/24/16 04:15 96 Room Air 12/24/16 04:10 90 18 105/50 96 Room Air 12/24/16 04:00 Room Air 12/24/16 03:54 95 21 12/24/16 03:50 76 18 105/52 95 Room Air 12/24/16 03:40 97.9 75 18 90/40 95 Room Air 12/24/16 03:30 74 18 91/42 95 Room Air 12/24/16 03:20 74 18 86/44 94 Room Air 12/24/16 03:10 68 18 85/41 95 Room Air 12/24/16 03:00 74 18 98/44 95 Room Air 12/24/16 02:30 98.4 72 18 96/47 95 Room Air 12/24/16 01:25 99.3 85 18 107/57 95 Room Air 12/24/16 00:29 18 12/24/16 00:15 100.9 102 18 112/53 95 Room Air 12/23/16 23:30 103.1 96 18 108/66 97 Room Air 12/23/16 23:00 Room Air 12/23/16 22:30 96 18 124/70 95 Room Air 12/23/16 21:53 99.4 101 16 128/67 98 Physical Exam GENERAL: This is a well-nourished, well-developed patient, in no apparent distress. SKIN: No rashes, ecchymoses or lesions. Cool and dry. HEAD: Atraumatic. Normocephalic. No temporal or scalp tenderness. EYES: Pupils equal round and reactive. Extraocular motions intact. No scleral icterus. No injection or drainage. ENT: Nose without bleeding, purulent drainage or septal hematoma. Throat without erythema, tonsillar hypertrophy or exudate. Uvula midline. Airway patent. NECK: Trachea midline. No JVD or lymphadenopathy. Supple, nontender, no meningeal signs. CARDIOVASCULAR: Regular rate and rhythm without murmurs, gallops, or rubs. RESPIRATORY: Clear to auscultation. Breath sounds equal bilaterally. No wheezes , rales, or rhonchi. GASTROINTESTINAL: Abdomen soft, non-tender, nondistended. No hepato-splenomegaly , or palpable masses. No guarding. MUSCULOSKELETAL: Extremities without clubbing, cyanosis, or edema. No joint tenderness, effusion, or edema noted. No calf tenderness. Negative Homans sign bilaterally. NEUROLOGICAL: Awake and alert. Cranial nerves II through XII intact. Motor and sensory grossly within normal limits. Five out of 5 muscle strength in all muscle groups. Normal speech. Laboratory Laboratory Tests Test 12/23/16 12/24/16 12/24/16 12/24/16 23:00 00:15 00:35 02:10 White Blood Count 13.4 Red Blood Count 5.30 Hemoglobin 13.9 Hematocrit 43.1 Mean Corpuscular Volume 81.3 Mean Corpuscular Hemoglobin 26.3 Mean Corpuscular Hemoglobin 32.3 Concent Red Cell Distribution Width 16.7 Platelet Count 255 Mean Platelet Volume 7.4 Neutrophils (%) (Auto) 83.2 Lymphocytes (%) (Auto) 9.7 Monocytes (%) (Auto) 4.2 Eosinophils (%) (Auto) 1.5 Basophils (%) (Auto) 1.4 Neutrophils # (Auto) 11.1 Lymphocytes # (Auto) 1.3 Monocytes # (Auto) 0.6 Eosinophils # (Auto) 0.2 Basophils # (Auto) 0.2 CBC Comment DIFF FINAL Differential Comment Erythrocyte Sedimentation Rate 6 Sodium Level 138 Potassium Level 3.9 Chloride Level 104 Carbon Dioxide Level 25.4 Anion Gap 9 Blood Urea Nitrogen 16 Creatinine 0.81 Estimat Glomerular Filtration 74 Rate Random Glucose 85 Calcium Level 8.9 Troponin I LESS THAN 0.02 Urine Color YELLOW Urine Turbidity SLIGHT Urine pH 7.0 Urine Specific [place] 1.023 Urine Protein TRACE Urine Glucose (UA) NEG Urine Ketones NEG Urine Occult Blood SMALL Urine Nitrite NEG Urine Bilirubin NEGATIVE Urine Leukocyte Esterase TRACE Urine RBC 4-9 Urine WBC 0-2 Urine Squamous Epithelial 6-8 Cells Urine Bacteria OCC Microscopic Urinalysis Comment CULT NOT INDICATED Lactic Acid Level 1.2 Prothrombin Time 11.6 Prothromb Time International 1.0 Ratio Activated Partial 29.1 Thromboplast Time Date/Time Procedure Status Source Growth 12/24/16 00:45 Aerobic Blood Culture Received Blood Peripheral Pending 12/24/16 00:45 Anaerobic Blood Culture Received Blood Peripheral Pending Result Diagram: 12/23/16 2300 12/23/16 2300 Imaging Last Impressions Chest X-Ray 12/23/16 2335 Signed Impressions: Service Date/Time: Friday, December 23, 2016 23:42 - CONCLUSION: No acute cardiopulmonary disease identified. Denny Clark MD Head CT 12/23/16 0000 Signed Impressions: Service Date/Time: Friday, December 23, 2016 23:43 - CONCLUSION: No acute intracranial findings. Denny Clark MD Assessment and Plan Assessment and Plan 56-year-old female with REESE/Raynauds, vasculitis poss with exacerbation. Severe allergic reaction to vancomycin Patient came to the ED with reproducible chest pain and pain all over She also meets SIRS criteria on admission 'She did received vancomycin in the ED and patient had allergic reaction. Received benadril steroids, eoinephrine, IVF as her blood pressure dropped. Dr Camacho lsw has also seen the patient Her BP is better controlled at this time. he is sattign well on 2L NC No respiratory compromise, VS are so far stable. Restart home meds as appropriate. Give prednisone 60 mg po daily. CXR without acute findings. UA is clean no signs of infection. Head CT without acute findings. Chronic medical problems appears stable left dropped foot, depression/anxiety, GERD. Continue home meds. DVT ppx SCD/teds Physician Certification 2 Midnight Certification Type: Admission for Inpatient Services Order for Inpatient Services The services are ordered in accordance with Medicare regulations or non- Medicare payer requirements, as applicable. In the case of services not specified as inpatient-only, they are appropriately provided as inpatient services in accordance with the 2-midnight benchmark. Estimated LOS (days): 3 days is the estimated time the patient will need to remain in the hospital, assuming treatment plan goals are met and no additional complications. Post-Hospital Plan: Home Carmenza Crane MD Dec 24, 2016 11:40
[2016-12-24] MEDS: HYDROCORTISONE SOD SUCCINATE 100 MG VIAL IV PUSH SCH ×2 (13:53→20:33)
[2016-12-24] MEDS ORDERED: VANCOMYCIN 1,000 MG/NS 250 ML IV SCH ×2 (14:00)
[2016-12-24] MEDS: HYDROmorphone HCL PF 1 MG/ML VIAL IV PUSH PRN (18:31)
[2016-12-24] MEDS ORDERED: KETOROLAC TROMETHAMINE 30 MG/ML (IVP) VIAL IV PUSH ONE (22:00)
--- NOTE | 2016-12-24 22:25 | PD.ID.CON ---
History of Present Illness Service ID Consult Requested By Dr Crane Reason for Consult sepsis, immunocmpromised Primary Care Physician Non-Staff Diagnoses: History of Present Illness 56-year-old female with PMH of poliarteiatis nodosa/Raynauds, presente d yday with complaints of aching all over She was well until December 2012 when she became paralyzed in the left foot. This was attributed to autoimmune disease. She is currently on Imuran 50 mg a day and prednisone 10 mg. She has got [facility] and they cannot figure it out. She has a one time fever up to 103 yday and none today She has mildly elevated WBC and normal lactic acid level Blood clx are pending She is on zosyn, Vancomycin was given in ER but she developed hives with infusion and it was discontinued She is currently co of R side neck pain 8/10 x 3 days She also co od diarrhea, 3 loose BMs /day deies sick exposure, denies eating out Had nause, vomiting earlier Review of Systems Constitutional: COMPLAINS OF: Fever Ears, nose, mouth, throat: COMPLAINS OF: Toothache Gastrointestinal: COMPLAINS OF: Diarrhea Musculoskeletal: COMPLAINS OF: Muscle aches, Neck pain Neurologic: COMPLAINS OF: Abnormal gait (L foot drop), Headache Except as stated in HPI: all other systems reviewed are Neg Past Family Social History Allergies: Coded Allergies: Vancomycin (Verified Allergy, Severe, Rash, 12/24/16) 12/24/16 Past Medical History REESE/Raynauds, left dropped foot, depression/anxiety Past Surgical History Hysterectomy, D&C, tubal ligation Left orbital fracture and subsequent plate placement in 2008 Had gel breast implants status post removal recently approximately one month ago Active Ordered Medications Medications where reviewed in EMR Antibiotics Include: zosyn, vancomycin Family History Mother with COPD Social History Occasional alcohol use. Denies illicit drug use. She is smoking cigarettes half a pack a day Physical Exam Vital Signs Vital Signs Date Time Temp Pulse Resp B/P Pulse Ox O2 Delivery O2 Flow Rate FiO2 12/24/16 21:00 48 21 107/53 90 12/24/16 20:08 96 21 12/24/16 20:00 46 22 125/55 95 12/24/16 19:25 14 12/24/16 19:00 97.4 48 22 122/55 94 12/24/16 18:17 46 22 137/49 12/24/16 18:00 46 19 136/61 12/24/16 18:00 47 12/24/16 17:00 42 21 146/53 91 12/24/16 16:00 98.3 44 17 133/44 12/24/16 16:00 45 12/24/16 15:00 44 20 113/47 92 12/24/16 14:00 48 12/24/16 14:00 46 21 119/48 93 12/24/16 13:00 46 20 116/57 92 12/24/16 12:00 98.0 46 19 105/48 90 12/24/16 12:00 48 12/24/16 11:00 50 22 117/50 12/24/16 10:00 54 24 109/50 91 12/24/16 10:00 54 12/24/16 09:00 60 33 108/52 91 12/24/16 08:00 94 21 12/24/16 08:00 97.5 52 16 92/42 94 12/24/16 07:51 103/45 12/24/16 07:25 97.6 57 16 116/54 92 Room Air 12/24/16 06:40 84 18 104/49 97 Room Air 12/24/16 05:45 97.6 88 18 89/42 97 Room Air 12/24/16 04:45 88 18 102/49 96 Room Air 12/24/16 04:15 96 Room Air 12/24/16 04:10 90 18 105/50 96 Room Air 12/24/16 04:00 Room Air 12/24/16 03:54 95 21 12/24/16 03:50 76 18 105/52 95 Room Air 12/24/16 03:40 97.9 75 18 90/40 95 Room Air 12/24/16 03:30 74 18 91/42 95 Room Air 12/24/16 03:20 74 18 86/44 94 Room Air 12/24/16 03:10 68 18 85/41 95 Room Air 12/24/16 03:00 74 18 98/44 95 Room Air 12/24/16 02:30 98.4 72 18 96/47 95 Room Air 12/24/16 01:25 99.3 85 18 107/57 95 Room Air 12/24/16 00:29 18 12/24/16 00:15 100.9 102 18 112/53 95 Room Air 12/23/16 23:30 103.1 96 18 108/66 97 Room Air 12/23/16 23:00 Room Air 12/23/16 22:30 96 18 124/70 95 Room Air Physical Exam CONSTITUTIONAL/GENERAL: This is an adequately nourished patient, in no apparent distress. TUBES/LINES/DRAINS: SKIN: No jaundice, rashes, or lesions. Skin temperature appropriate. Not diaphoretic. HEAD: Atraumatic. Normocephalic. EYES: Pupils equal and round and reactive. Extraocular motions intact. No scleral icterus. No injection or drainage. Fundi not examined. ENT: Hearing grossly normal. Nose without bleeding or purulent drainage. Oral mucosae moist without visible erythema, exudates, masses, or lesions. Poor dentition, multiple missingteeth, but no swelling, redness or drainage noted NECK: Trachea midline. Supple, nontender. No palpable thyroid enlargement or nodularity. CARDIOVASCULAR: Regular rate and rhythm without murmurs, gallops, or rubs. No JVD. Peripheral pulses symmetric. RESPIRATORY/CHEST: Symmetric, unlabored respirations. Clear to auscultation. Breath sounds equal bilaterally. No wheezes, rales, or rhonchi. GASTROINTESTINAL: Abdomen soft, non-tender, nondistended. No hepato-splenomegaly , or palpable masses. No guarding. Bowel sounds present. GENITOURINARY: Without palpable bladder distension. MUSCULOSKELETAL: Extremities without clubbing, cyanosis, or edema. No joint tenderness or effusion noted. No calf tenderness. No mottling or clubbing. L foot drop (chtonic0, very etender to plapation LYMPHATICS: No palpable cervical or supraclavicular adenopathy. NEUROLOGICAL: Awake and alert. Motor and sensory grossly within normal limits. Follows commands. Clear speech. Moves all extremities. PSYCHIATRIC: No obvious anxiety/depression. no apparent hallucinations or other psychotic thought process. Laboratory Laboratory Tests Test 12/23/16 12/24/16 12/24/16 12/24/16 23:00 00:15 00:35 02:10 White Blood Count 13.4 Red Blood Count 5.30 Hemoglobin 13.9 Hematocrit 43.1 Mean Corpuscular Volume 81.3 Mean Corpuscular Hemoglobin 26.3 Mean Corpuscular Hemoglobin 32.3 Concent Red Cell Distribution Width 16.7 Platelet Count 255 Mean Platelet Volume 7.4 Neutrophils (%) (Auto) 83.2 Lymphocytes (%) (Auto) 9.7 Monocytes (%) (Auto) 4.2 Eosinophils (%) (Auto) 1.5 Basophils (%) (Auto) 1.4 Neutrophils # (Auto) 11.1 Lymphocytes # (Auto) 1.3 Monocytes # (Auto) 0.6 Eosinophils # (Auto) 0.2 Basophils # (Auto) 0.2 CBC Comment DIFF FINAL Differential Comment Erythrocyte Sedimentation Rate 6 Sodium Level 138 Potassium Level 3.9 Chloride Level 104 Carbon Dioxide Level 25.4 Anion Gap 9 Blood Urea Nitrogen 16 Creatinine 0.81 Estimat Glomerular Filtration 74 Rate Random Glucose 85 Calcium Level 8.9 Troponin I LESS THAN 0.02 Urine Color YELLOW Urine Turbidity SLIGHT Urine pH 7.0 Urine Specific [place] 1.023 Urine Protein TRACE Urine Glucose (UA) NEG Urine Ketones NEG Urine Occult Blood SMALL Urine Nitrite NEG Urine Bilirubin NEGATIVE Urine Leukocyte Esterase TRACE Urine RBC 4-9 Urine WBC 0-2 Urine Squamous Epithelial 6-8 Cells Urine Bacteria OCC Microscopic Urinalysis Comment CULT NOT INDICATED Lactic Acid Level 1.2 Prothrombin Time 11.6 Prothromb Time International 1.0 Ratio Activated Partial 29.1 Thromboplast Time Date/Time Procedure Status Source Growth 12/24/16 00:45 Aerobic Blood Culture Received Blood Peripheral Pending 12/24/16 00:45 Anaerobic Blood Culture Received Blood Peripheral Pending Result Diagram: 12/23/16 2300 12/23/16 2300 Imaging Last Impressions Chest X-Ray 12/23/16 2335 Signed Impressions: Service Date/Time: Friday, December 23, 2016 23:42 - CONCLUSION: No acute cardiopulmonary disease identified. Denny Clark MD Head CT 12/23/16 0000 Signed Impressions: Service Date/Time: Friday, December 23, 2016 23:43 - CONCLUSION: No acute intracranial findings. Denny Clark MD Assessment and Plan Assessment and Plan Autoimmune disease, on Imuran/prednisone 10 mg Acute febrile illness, fever resolved - P blood culx - UA negative CXR negative Diarrhea - acute Neck pain - acute Allergic reaction to vanco - acute REC's: stool studies (c.diff, stool pathogens, rotavirus) Neck MRI cont zosyn if e/o MRSA or new fever will ad daptomycin (ASP: allergic to vancomycin, documented) Discussed Condition With pt RN Dr Royce Murray,Kathleen Werner MD Dec 24, 2016 22:25
[2016-12-25] VITALS (24 sets, daily range): BP systolic 79–136; BP diastolic 42–87; PULSE 36–95; RESP 15–34; TEMP 96.6–99.2; O2SAT 91–99
[2016-12-25] MEDS: HYDROmorphone HCL PF 1 MG/ML VIAL IV PUSH PRN ×2 (01:00→07:25)
[2016-12-25] MEDS: PIPERACIL-TAZO 4.5 GM PREMIX 100 ML IV SCH ×3 (02:34→14:23)
[2016-12-25 04:46] LABS: AUTOMATED NEUTROPHIL # 17.5 TH/MM3 (1.8-7.7); EOSINOPHIL # 0.1 TH/MM3 (0-0.4); EOSINOPHIL % 0.6 % (0.0-4.0); HEMATOCRIT 36.9 % (35.0-46.0); LYMPH % 8.3 % (9.0-44.0); LYMPHOCYTE # 1.7 TH/MM3 (1.0-4.8); MEAN CELL VOLUME 82.6 FL (80.0-100.0); MEAN CORPUSCULAR HEMOGLOBIN 27.3 PG (27.0-34.0); MEAN CORPUSCULAR HGB CONC 33.1 % (32.0-36.0); MONO % 4.5 % (0.0-8.0); NEUT % 86.6 % (16.0-70.0); PLATELET COUNT 277 TH/MM3 (150-450); RED BLOOD COUNT 4.47 MIL/MM3 (4.00-5.30); RED CELL DISTRIBUTION WIDTH 16.7 % (11.6-17.2); WHITE BLOOD COUNT 20.2 TH/MM3 (4.0-11.0)
[2016-12-25 04:51] LABS: HEMO FLAGS DIFF FINAL
[2016-12-25 04:59] LABS: BICARBONATE 26.3 MEQ/L (21.0-32.0); POTASSIUM 3.4 MEQ/L (3.5-5.1)
[2016-12-25] MEDS: HYDROCORTISONE SOD SUCCINATE 100 MG VIAL IV PUSH SCH ×3 (05:28→23:59)
[2016-12-25] MEDS: PANTOPRAZOLE SOD 40 MG DELAYED RELEASE TAB PO SCH (08:34)
[2016-12-25] MEDS: SODIUM CHLORIDE 0.9% FLUSH 10 ML FLUSH IV FLUSH SCH ×2 (09:00→23:58)
--- NOTE | 2016-12-25 10:22 | HHI.PR ---
Subjective Remarks Says she feels a little better today. No chest pain . No n/v/d/c. Feels tired. Pain is not controlled with IV dilaudid , patient is not nauseated will restart her home dilaudid po 2 mg bid. Patient denies lightheadedness. No sob. Objective Vitals Vital Signs Date Time Temp Pulse Resp B/P Pulse Ox O2 Delivery O2 Flow Rate FiO2 12/25/16 08:37 46 29 122/49 96 12/25/16 07:55 17 12/25/16 07:00 97.6 36 19 132/47 91 12/25/16 06:00 40 21 123/58 95 12/25/16 06:00 38 12/25/16 05:00 40 25 123/47 95 12/25/16 04:00 97.6 12/25/16 04:00 97.6 36 25 99/47 92 12/25/16 04:00 36 12/25/16 03:00 36 15 106/42 95 12/25/16 02:00 42 12/25/16 02:00 40 23 117/50 96 12/25/16 01:07 40 25 136/56 99 12/25/16 01:00 97.6 40 17 133/57 99 12/25/16 00:00 40 12/25/16 00:00 40 17 136/48 98 12/24/16 23:00 44 19 97 12/24/16 22:00 46 12/24/16 22:00 46 20 127/52 96 12/24/16 21:00 48 21 107/53 90 12/24/16 20:08 96 21 12/24/16 20:00 46 12/24/16 20:00 46 22 125/55 95 12/24/16 19:00 97.4 48 22 122/55 94 12/24/16 18:17 46 22 137/49 12/24/16 18:00 46 19 136/61 12/24/16 18:00 47 12/24/16 17:00 42 21 146/53 91 12/24/16 16:00 98.3 44 17 133/44 12/24/16 16:00 45 12/24/16 15:00 44 20 113/47 92 12/24/16 14:00 48 12/24/16 14:00 46 21 119/48 93 12/24/16 13:00 46 20 116/57 92 12/24/16 12:00 98.0 46 19 105/48 90 12/24/16 12:00 48 12/24/16 11:00 50 22 117/50 I/O 12/24/16 12/24/16 12/24/16 12/25/16 12/25/16 12/25/16 07:00 15:00 23:00 07:00 15:00 23:00 Intake Total 4100 ml 446 ml 690 ml 100 ml Output Total 200 ml 200 ml Balance 4100 ml 246 ml 690 ml -100 ml Intake Oral 240 ml 480 ml IV Total 4100 ml 206 ml 210 ml 100 ml Output Urine Total 200 ml 200 ml # Voids 3 4 0 # Bowel Movements 1 2 0 Result Diagram: 12/25/16 0425 12/25/16 0425 Imaging Last Impressions Chest X-Ray 12/23/16 2335 Signed Impressions: Service Date/Time: Friday, December 23, 2016 23:42 - CONCLUSION: No acute cardiopulmonary disease identified. Denny Clark MD Head CT 12/23/16 0000 Signed Impressions: Service Date/Time: Friday, December 23, 2016 23:43 - CONCLUSION: No acute intracranial findings. Denny Clark MD Objective Remarks GENERAL: This is a well-nourished, well-developed patient, in no apparent distress. SKIN: No rashes, ecchymoses or lesions. Cool and dry. ENT: Nose without bleeding, purulent drainage or septal hematoma. Throat without erythema, tonsillar hypertrophy or exudate. Uvula midline. Airway patent. NECK: Trachea midline. No JVD or lymphadenopathy. Supple, nontender, no meningeal signs. CARDIOVASCULAR: Regular rate and rhythm without murmurs, gallops, or rubs. RESPIRATORY: Clear to auscultation. Breath sounds equal bilaterally. No wheezes , rales, or rhonchi. GASTROINTESTINAL: Abdomen soft, non-tender, nondistended. No hepato-splenomegaly , or palpable masses. No guarding. MUSCULOSKELETAL: Extremities without clubbing, cyanosis, or edema. No joint tenderness, effusion, or edema noted. No calf tenderness. Negative Homans sign bilaterally. NEUROLOGICAL: Awake and alert. Cranial nerves II through XII intact. Motor and sensory grossly within normal limits. Five out of 5 muscle strength in all muscle groups. Normal speech. A/P Assessment and Plan 56-year-old female with REESE/Raynauds, vasculitis poss with exacerbation. Severe allergic reaction to vancomycin Patient came to the ED with reproducible chest pain and pain all over She also meets SIRS criteria on admission, patient with SEPSIS , now with bacteremia GPC. Severe allergic reaction to vanco in ED. She is curently on zosyn IV abx. I did notify culrures results Dr Terri RAMIREZ specialist will review abx and evaluate patient. 'She did received vancomycin in the ED and patient had allergic reaction. Received benadryl steroids, epinephrine, IVF as her blood pressure dropped. Her BP is better controlled at this time. he is sattign well on 2L NC No respiratory compromise, VS are so far stable. Restart home meds as appropriate. Give prednisone 60 mg po daily. CXR without acute findings. UA is clean no signs of infection. However blood cultures with bacteremia. Sinus bradycardia: Patient also noted with bradycardia. Will do EKG. She has no chest pain at this time. Will do 2D ECHO. Will consult cardiology Severe chronic pain patient is on dilaudid 2 mg po bid. Restart PO dilaudid, discontinue IV dilaudid 05.mg. Monitor closely. Monitor VS. So far BP has been stable. Hold if BP meds and narcotics of low BP . Head CT without acute findings. Chronic medical problems appears stable left dropped foot, depression/anxiety, GERD. Continue home meds. DVT ppx SCD/teds Discussed with the patient, nurse, Carmenza Moran MD Dec 25, 2016 10:22
--- NOTE | 2016-12-25 10:36 | PQ ---
Physician Query Response Document PATIENT: VICTORIANO CORTEZ : 1960 ADMIT DATE: 12/24/2016 1:43 AM DISCH DATE: RESPONDING PROVIDER #: [email or web address] QUERY TEXT: Sepsis Query Based on your medical judgement, can you further clarify the folowiin. Sepsis (SIRS due to an infection) Sepsis was present on Admission 2. Sepsis with Organ Dysfunction 3. Sepsis not present A localized Infection only 4. Another condition - please specify 5. Unable to determine - please explain. The patient's Clinical Indicators include: SEPSIS protocol initiated in ER T103.1 heart rate 101 WBC 13.1 aching all over. autoimmune disease and vasculitis. GM + Cocci BC x2 TX NORMAL SALINE BOLUS X 3 VANCOMYCIN AND ZOSYN Query created by: Jacki Feliciano on 12/25/2016 9:54 AM RESPONSE TEXT: Patient with SIRS criteria on admission. Patient now meets SEPSIS criteria as her blood cultures are positive ( fever, tachycardia, bacteremia). Patient had severe allergic reaction to vanco and her BP was low poss 2/2 allergic reaction but also sepsis. Sepsis might be clasified as severe sepsis as pat ient also with low BP and received boluses and IVF resuscitation. Electronically signed by: Carmenza Crane MD 12/25/2016 10:32 AM
[2016-12-25] MEDS ORDERED: ALBUTEROL SULFATE 90 MCG/ACT HFA 18 GM INHALER INH PRN (10:45)
[2016-12-25] MEDS ORDERED: FLUoxetine HCL 20 MG CAP PO ONE (11:00)
[2016-12-25] MEDS: GABAPENTIN 400 MG CAP PO SCH ×2 (12:49→18:06)
[2016-12-25] MEDS: DAPTOmycin INJ 500 MG in SODIUM CHLORIDE 0.9% INJ 100 ML IV SCH (12:50)
--- NOTE | 2016-12-25 13:13 | PD.CONS ---
HPI Consult Requested By Primary Care Physician Non-Staff History of Present Illness 56-year-old female with PMHx of REESE/Raynauds, left dropped foot, who came to the ED for further evaluation with complaints of "aching all over". She follows with /Rheumatology. She is currently on Imuran 50 mg a day and prednisone 10 mg. She says that nobody can figure out what's wrong with her. She has been found to have fever, positive blood cultures, septic. She has been having asymptomatic bradycardia on telemetry. Complaints of atypical chest discomfort, mostly back ache. Cardiology consulted for evaluation and management. Review of Systems Consitutional: COMPLAINS OF: Fatigue, DENIES: Fever, Chills, Weight gain, Weight loss Eyes: DENIES: Amaurosis Fugax, Change in vision HEENT: COMPLAINS OF: Lightheadedness Respiratory: DENIES: See HPI, Cough, Snoring, Shortness of breath, Wheezing, Sputum production Cardiovascular: DENIES: See HPI, Chest pain, Palpitations, Syncope, Tachycardia Gastrointestinal: DENIES: Nausea, Vomiting, Change in bowel habits, Reflux, Bloody stools, Melena Genitourinary: DENIES: Urinary incontinence, Difficulty voiding Integumentary: DENIES: Rash Neurologic: DENIES: Tingling or numbness, Memory problems, Poor Balance, Stroke symptoms Musculoskeletal: DENIES: Joint pain, Muscle pain, Limited range of motion, Back pain Psychiatric: DENIES: Anxiety, Depression, Sleep disturbances Hematologic: DENIES: Bruising tendencies, Bleeding tendencies Endocrine: DENIES: Weight gain, Weight loss, Thyroid disease Past Family Social History Allergies: Coded Allergies: Vancomycin (Verified Allergy, Severe, Rash, 12/24/16) 12/24/16 Past Medical History REESE/Raynauds, left dropped foot, depression/anxiety Past Surgical History Hysterectomy, D&C, tubal ligation Left orbital fracture and subsequent plate placement in 2008 Had gel breast implants status post removal recently approximately one month ago Reported Medications Reported Meds & Active Scripts Active Proair Hfa 8.5 GM Inh (Albuterol Sulfate) 90 Mcg/Act Aer 1 Puff INH Q4H PRN 108 mcg/actuation Reported Dilaudid (Hydromorphone HCl) 2 Mg Tab 2 Mg PO BID Gabapentin 800 Mg Tab 800 Mg PO TID Folic Acid 1 Mg Tablet 1 Mg PO HS Prozac (Fluoxetine HCl) 20 Mg Cap 20 Mg PO BID Imuran (Azathioprine) 50 Mg Tab 50 Mg PO DAILY Hazardous agent: use appropriate precautions for handling and disposal. Prednisone 10 Mg Tab 10 Mg PO DAILY Calcium Carbonate 1,500 Mg Tab 500 Mg PO BID 1,500 mg calcium carbonate (600 mg elemental calcium) Aspirin 325 Mg Tab 325 Mg PO BID Xanax (Alprazolam) 0.5 Mg Tab 0.5 Mg PO BID PRN Active Ordered Medications Current Medications Medications (Trade) Dose Ordered Sig/Ayaz Route Start Time Stop Time Status Last Admin (NS Flush) 2 ml UNSCH PRN IV FLUSH 12/24/16 01:45 (NS Flush) 2 ml BID IV FLUSH 12/24/16 09:00 12/25/16 09:00 Naloxone HCl 0.4 mg 0.4 mg UNSCH PRN IV 12/24/16 01:45 (Zosyn 4.5 Gm Premix) 100 ml @ 200 mls/hr Q6H IV 12/24/16 08:00 12/25/16 08:50 (SoluCORTEF INJ) 100 mg Q8HR IV PUSH 12/24/16 14:00 12/25/16 05:28 (Protonix) 40 mg DAILY PO 12/24/16 09:00 12/25/16 08:34 (Ventolin Hfa Inh) 1 puff Q4H PRN INH 12/25/16 10:45 (Xanax) 0.5 mg BID PRN PO 12/25/16 10:15 (Aspirin) 325 mg BID PO 12/25/16 21:00 (Imuran) 50 mg DAILY PO 12/26/16 09:00 (Oscal) 500 mg BID PO 12/25/16 21:00 (PROzac) 20 mg BID PO 12/25/16 21:00 (Folate) 1 mg HS PO 12/25/16 21:00 (Neurontin) 800 mg TID PO 12/25/16 13:00 12/25/16 12:49 Hydromorphone HCl 2 mg 2 mg BID PO 12/25/16 21:00 (Cubicin Inj/NS Inj) 100 ml @ 200 mls/hr Q24H IV 12/25/16 13:00 12/25/16 12:50 Physical Exam Vital Signs Vital Signs Date Time Temp Pulse Resp B/P Pulse Ox O2 Delivery O2 Flow Rate FiO2 12/25/16 12:00 42 12/25/16 11:29 66 12/25/16 11:00 40 12/25/16 11:00 97.6 40 18 117/52 12/25/16 10:00 38 12/25/16 08:37 46 29 122/49 96 12/25/16 08:00 46 12/25/16 07:55 17 12/25/16 07:00 97.6 36 19 132/47 91 12/25/16 06:00 40 21 123/58 95 12/25/16 06:00 38 12/25/16 05:00 40 25 123/47 95 12/25/16 04:00 97.6 12/25/16 04:00 97.6 36 25 99/47 92 12/25/16 04:00 36 12/25/16 03:00 36 15 106/42 95 12/25/16 02:00 42 12/25/16 02:00 40 23 117/50 96 12/25/16 01:07 40 25 136/56 99 12/25/16 01:00 97.6 40 17 133/57 99 12/25/16 00:00 40 12/25/16 00:00 40 17 136/48 98 12/24/16 23:00 44 19 97 12/24/16 22:00 46 12/24/16 22:00 46 20 127/52 96 12/24/16 21:00 48 21 107/53 90 12/24/16 20:08 96 21 12/24/16 20:00 46 12/24/16 20:00 46 22 125/55 95 12/24/16 19:00 97.4 48 22 122/55 94 12/24/16 18:17 46 22 137/49 12/24/16 18:00 46 19 136/61 12/24/16 18:00 47 12/24/16 17:00 42 21 146/53 91 12/24/16 16:00 98.3 44 17 133/44 12/24/16 16:00 45 12/24/16 15:00 44 20 113/47 92 12/24/16 14:00 48 12/24/16 14:00 46 21 119/48 93 Physical Exam GENERAL: Well-nourished, well-developed patient. SKIN: Warm and dry. HEAD: Normocephalic. EYES: No scleral icterus. No injection or drainage. NECK: Supple, trachea midline. No JVD or lymphadenopathy. CARDIOVASCULAR: Regular rate and rhythm without murmurs, gallops, or rubs. RESPIRATORY: Breath sounds equal bilaterally. No accessory muscle use. GASTROINTESTINAL: Abdomen soft, non-tender, nondistended. EXTREMITIES: No cyanosis, or edema. Laboratory Laboratory Tests Test 12/25/16 04:25 White Blood Count 20.2 Red Blood Count 4.47 Hemoglobin 12.2 Hematocrit 36.9 Mean Corpuscular Volume 82.6 Mean Corpuscular Hemoglobin 27.3 Mean Corpuscular Hemoglobin 33.1 Concent Red Cell Distribution Width 16.7 Platelet Count 277 Mean Platelet Volume 8.0 Neutrophils (%) (Auto) 86.6 Lymphocytes (%) (Auto) 8.3 Monocytes (%) (Auto) 4.5 Eosinophils (%) (Auto) 0.6 Basophils (%) (Auto) 0.0 Neutrophils # (Auto) 17.5 Lymphocytes # (Auto) 1.7 Monocytes # (Auto) 0.9 Eosinophils # (Auto) 0.1 Basophils # (Auto) 0.0 CBC Comment DIFF FINAL Differential Comment Sodium Level 146 Potassium Level 3.4 Chloride Level 112 Carbon Dioxide Level 26.3 Anion Gap 8 Blood Urea Nitrogen 18 Creatinine 0.79 Estimat Glomerular Filtration 76 Rate Random Glucose 126 Calcium Level 8.7 Date/Time Procedure Status Source Growth 12/24/16 00:45 Aerobic Blood Culture - Preliminary Resulted Blood Peripheral Gram Positive Cocci 12/24/16 00:45 Anaerobic Blood Culture - Preliminary Resulted Gram Positive Cocci Result Diagram: 12/25/16 0425 12/25/16 0425 Imaging Last Impressions Chest X-Ray 12/23/16 2335 Signed Impressions: Service Date/Time: Friday, December 23, 2016 23:42 - CONCLUSION: No acute cardiopulmonary disease identified. Denny Clark MD Head CT 12/23/16 0000 Signed Impressions: Service Date/Time: Friday, December 23, 2016 23:43 - CONCLUSION: No acute intracranial findings. Denny Clark MD Assessment and Plan Problem List: (1) Bradycardia Assessment and Plan: 56 y/o F immunosuppressed being treated for sepsis being found to have asymptomatic bradycardia with HR in the low 40's, no documented pauses or blocks. She is now hypotensive denies chest pain or SOB. First set of cardiac markers unremarkable. It is likely that bradycardia related to underlying infection vs side effects from medication. Regarding ACS it would be an atypical presentation however, given ongoing infection it is NOT recommended to pursue a cardiac work up at this time. Recommendations: 1. Telemetry monitoring 2. Cycle cardiac enzymes Q6H x 2 3. Echocardiogram 4. Avoid AV blocking agents 5. Avoid electrolytes abnormalities 6. Get TSH, Free T3 and T4. Thank you for the opportunity to participate in the care of this patient Trell Downing MD Dec 25, 2016 13:13
[2016-12-25] MEDS ORDERED: PHARMACY ORDERED LAB ONE (13:45)
--- NOTE | 2016-12-25 15:08 | HHI.IDPN ---
Subjective Subjective Remarks no neck pain no fever no diarrhea + bradycardia Gram positive bacteremia, high 3/4 Antibiotics zosyn daptomycin Allergies: Coded Allergies: Vancomycin (Verified Allergy, Severe, Rash, 12/24/16) 12/24/16 Objective . Vital Signs Date Time Temp Pulse Resp B/P Pulse Ox O2 Delivery O2 Flow Rate FiO2 12/25/16 12:00 42 12/25/16 11:29 66 12/25/16 11:00 40 12/25/16 11:00 97.6 40 18 117/52 12/25/16 10:00 38 12/25/16 08:37 46 29 122/49 96 12/25/16 08:00 46 12/25/16 07:55 17 12/25/16 07:00 97.6 36 19 132/47 91 12/25/16 06:00 40 21 123/58 95 12/25/16 06:00 38 12/25/16 05:00 40 25 123/47 95 12/25/16 04:00 97.6 12/25/16 04:00 97.6 36 25 99/47 92 12/25/16 04:00 36 12/25/16 03:00 36 15 106/42 95 12/25/16 02:00 42 12/25/16 02:00 40 23 117/50 96 12/25/16 01:07 40 25 136/56 99 12/25/16 01:00 97.6 40 17 133/57 99 12/25/16 00:00 40 12/25/16 00:00 40 17 136/48 98 12/24/16 23:00 44 19 97 12/24/16 22:00 46 12/24/16 22:00 46 20 127/52 96 12/24/16 21:00 48 21 107/53 90 12/24/16 20:08 96 21 12/24/16 20:00 46 12/24/16 20:00 46 22 125/55 95 12/24/16 19:00 97.4 48 22 122/55 94 12/24/16 18:17 46 22 137/49 12/24/16 18:00 46 19 136/61 12/24/16 18:00 47 12/24/16 17:00 42 21 146/53 91 12/24/16 16:00 98.3 44 17 133/44 12/24/16 16:00 45 12/24/16 15:00 44 20 113/47 92 12/24/16 12/24/16 12/25/16 14:59 22:59 06:59 Intake Total 446 ml 690 ml 100 ml Output Total 200 ml 200 ml Balance 246 ml 690 ml -100 ml Intake Oral 240 ml 480 ml IV Total 206 ml 210 ml 100 ml Output Urine Total 200 ml 200 ml # Voids 4 0 # Bowel Movements 2 0 . Laboratory Tests Test 12/23/16 12/25/16 23:00 04:25 White Blood Count 13.4 TH/MM3 20.2 TH/MM3 Red Blood Count 5.30 MIL/MM3 4.47 MIL/MM3 Hemoglobin 13.9 GM/DL 12.2 GM/DL Hematocrit 43.1 % 36.9 % Mean Corpuscular Volume 81.3 FL 82.6 FL Mean Corpuscular Hemoglobin 26.3 PG 27.3 PG Mean Corpuscular Hemoglobin 32.3 % 33.1 % Concent Red Cell Distribution Width 16.7 % 16.7 % Platelet Count 255 TH/MM3 277 TH/MM3 Mean Platelet Volume 7.4 FL 8.0 FL Neutrophils (%) (Auto) 83.2 % 86.6 % Lymphocytes (%) (Auto) 9.7 % 8.3 % Monocytes (%) (Auto) 4.2 % 4.5 % Eosinophils (%) (Auto) 1.5 % 0.6 % Basophils (%) (Auto) 1.4 % 0.0 % Neutrophils # (Auto) 11.1 TH/MM3 17.5 TH/MM3 Lymphocytes # (Auto) 1.3 TH/MM3 1.7 TH/MM3 Monocytes # (Auto) 0.6 TH/MM3 0.9 TH/MM3 Eosinophils # (Auto) 0.2 TH/MM3 0.1 TH/MM3 Basophils # (Auto) 0.2 TH/MM3 0.0 TH/MM3 CBC Comment DIFF FINAL DIFF FINAL Differential Comment Erythrocyte Sedimentation Rate 6 mm/hr Laboratory Tests Test 12/23/16 12/24/16 12/25/16 23:00 00:35 04:25 Sodium Level 138 MEQ/L 146 MEQ/L Potassium Level 3.9 MEQ/L 3.4 MEQ/L Chloride Level 104 MEQ/L 112 MEQ/L Carbon Dioxide Level 25.4 MEQ/L 26.3 MEQ/L Anion Gap 9 MEQ/L 8 MEQ/L Blood Urea Nitrogen 16 MG/DL 18 MG/DL Creatinine 0.81 MG/DL 0.79 MG/DL Estimat Glomerular Filtration 74 ML/MIN 76 ML/MIN Rate Random Glucose 85 MG/DL 126 MG/DL Calcium Level 8.9 MG/DL 8.7 MG/DL Troponin I LESS THAN 0.02 NG/ML Lactic Acid Level 1.2 mmol/L Microbiology Date/Time Procedure Status Source Growth 12/24/16 00:35 Aerobic Blood Culture - Preliminary Resulted Blood Peripheral Staph Sp Coagulase Negative 12/24/16 00:35 Anaerobic Blood Culture - Preliminary Resulted Blood Peripheral NO GROWTH IN 1 DAY 12/24/16 00:45 Aerobic Blood Culture - Preliminary Resulted Blood Peripheral Gram Positive Cocci 12/24/16 00:45 Anaerobic Blood Culture - Preliminary Resulted Gram Positive Cocci 12/25/16 11:30 Rotavirus Antigen Received Stool Stool Pending 12/25/16 11:30 Received Stool Stool Pending Imaging Last Impressions Chest X-Ray 12/23/16 2335 Signed Impressions: Service Date/Time: Friday, December 23, 2016 23:42 - CONCLUSION: No acute cardiopulmonary disease identified. Denny Clark MD Head CT 12/23/16 0000 Signed Impressions: Service Date/Time: Friday, December 23, 2016 23:43 - CONCLUSION: No acute intracranial findings. Denny Clark MD Physical Exam CONSTITUTIONAL/GENERAL: This is an adequately nourished patient, in no apparent distress. TUBES/LINES/DRAINS: SKIN: No jaundice, rashes, or lesions. Skin temperature appropriate. Not diaphoretic. EYES: No scleral icterus. No injection or drainage. Fundi not examined. ENT: Hearing grossly normal. Nose without bleeding or purulent drainage. Oral mucosae moist without visible erythema, exudates, masses, or lesions. Poor dentition, multiple missingteeth, but no swelling, redness or drainage noted CARDIOVASCULAR: Regular rate and rhythm without murmurs, gallops, or rubs. No JVD. Peripheral pulses symmetric. RESPIRATORY/CHEST: Symmetric, unlabored respirations. Clear to auscultation. Breath sounds equal bilaterally. No wheezes, rales, or rhonchi. GASTROINTESTINAL: Abdomen soft, non-tender, nondistended. Bowel sounds present. GENITOURINARY: Without palpable bladder distension. MUSCULOSKELETAL: Extremities without clubbing, cyanosis, or edema. No joint tenderness or effusion noted. No calf tenderness. No mottling or clubbing. L foot drop (chronic, very etender to palpation ) NEUROLOGICAL: Awake and alert. Motor and sensory grossly within normal limits. Follows commands. Clear speech. Moves all extremities. 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
[2016-12-25] MEDS ORDERED: SODIUM CHLOR 0.9% 1000 ML INJ 1,000 ML IV ONE (20:45)
[2016-12-25 23:15] LABS: CREATINE KINASE 66 U/L (26-192)
[2016-12-26] VITALS (8 sets, daily range): BP systolic 112–165; BP diastolic 48–75; PULSE 42–65; RESP 14–22; TEMP 96.8–98.6; O2SAT 90–98
[2016-12-26] MEDS: ASPIRIN 325 MG TAB PO SCH ×3 (00:01→20:12)
[2016-12-26] MEDS: ALPRAZolam 0.5 MG TAB PO PRN ×3 (00:01→18:10)
[2016-12-26] MEDS: CALCIUM CARBONATE 1.25 GM (CA 500 MG) TAB PO SCH ×3 (00:01→20:14)
[2016-12-26] MEDS: FOLIC ACID 1 MG TAB PO SCH ×2 (00:01→20:12)
[2016-12-26] MEDS: FLUoxetine HCL 20 MG CAP PO SCH ×3 (00:01→20:13)
[2016-12-26] MEDS: HYDROmorphone HCL 2 MG TAB PO SCH ×3 (00:09→20:12)
[2016-12-26] MEDS: HYDROCORTISONE SOD SUCCINATE 100 MG VIAL IV PUSH SCH (06:22)
[2016-12-26] MEDS: GABAPENTIN 400 MG CAP PO SCH ×3 (08:11→18:04)
[2016-12-26] MEDS: PANTOPRAZOLE SOD 40 MG DELAYED RELEASE TAB PO SCH (08:11)
[2016-12-26] MEDS: SODIUM CHLORIDE 0.9% FLUSH 10 ML FLUSH IV FLUSH SCH ×2 (08:11→20:13)
[2016-12-26 09:52] LABS: C. DIFF EPI 027 INVALID (NEGATIVE); C. DIFF TOXIN PCR INVALID (NEGATIVE)
[2016-12-26] MEDS: azaTHIOprine 50 MG TAB PO SCH (10:12)
--- NOTE | 2016-12-26 10:39 | EKG ---
Date Performed: 12/25/2016 Time Performed: 10:42:30 PTAGE: 56 years EKG: SINUS BRADYCARDIA PROLONGED QT INTERVAL ABNORMAL ECG PREVIOUS TRACING : 12/23/2016 23.28 DOCTOR: Dylon Olguin Interpretating Date/Time 12/26/2016 10:37:02
[2016-12-26] MEDS ORDERED: KETOROLAC TROMETHAMINE 10 MG TAB PO ONE (11:00)
--- NOTE | 2016-12-26 13:16 | HHI.PR ---
Subjective Remarks Patient seen and evaluated today in follow-up for diffuse pain and for bacteremia. The patient is requesting IV narcotics and increase Xanax dosages. Her mother is at the bedside. Care plan discussed with [facility] nursing team and patient and family. Also discussed the plan of care with the infectious disease team, Dr. Murray. Objective Vitals Vital Signs Date Time Temp Pulse Resp B/P Pulse Ox O2 Delivery O2 Flow Rate FiO2 12/26/16 12:31 18 12/26/16 12:00 97.1 43 20 136/56 95 12/26/16 09:11 18 12/26/16 08:00 97.8 54 20 165/75 97 12/26/16 05:27 97.1 42 14 126/54 93 12/26/16 00:05 98.6 55 22 156/58 98 12/25/16 22:06 48 18 95/49 95 12/25/16 22:00 47 12/25/16 22:00 47 12/25/16 20:27 96 21 12/25/16 20:16 40 20 79/58 12/25/16 20:09 96.6 46 22 86/59 99 12/25/16 17:30 97.7 57 20 134/78 95 12/25/16 16:00 41 12/25/16 16:00 98.3 50 34 120/46 I/O 12/25/16 12/25/16 12/25/16 12/26/16 12/26/16 12/26/16 07:00 15:00 23:00 07:00 15:00 23:00 Intake Total 100 ml 790 ml 1000 ml Output Total 200 ml 650 ml Balance -100 ml 140 ml 1000 ml Intake Oral 360 ml IV Total 100 ml 430 ml 1000 ml Output Urine Total 200 ml 650 ml # Voids 4 2 # Bowel Movements 2 3 2 Result Diagram: 12/25/16 0425 12/25/16 0425 Imaging Last Impressions Chest X-Ray 12/23/16 3295 Signed Impressions: Service Date/Time: Friday, December 23, 2016 23:42 - CONCLUSION: No acute cardiopulmonary disease identified. Denny Clark MD Head CT 12/23/16 0000 Signed Impressions: Service Date/Time: Friday, December 23, 2016 23:43 - CONCLUSION: No acute intracranial findings. Denny Clark MD Objective Remarks GENERAL: This is a well-nourished, well-developed patient, in no apparent distress. CARDIOVASCULAR: Sinus bradycardia without murmurs, gallops, or rubs. RESPIRATORY: Clear to auscultation. Breath sounds equal bilaterally. No wheezes , rales, or rhonchi. GASTROINTESTINAL: Abdomen soft, non-tender, nondistended. Normal active bowel sounds MUSCULOSKELETAL: Extremities without clubbing, cyanosis, or edema. NEURO: Alert & Oriented x4 to person, place, time, situation. 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 We'll follow-up with morphology Continue with the daptomycin per ID (4) Anxiety ICD Code: F41.9 Status: Acute Plan: Will increase her Xanax to 3 times a day and continue her Prozac Discharge Planning Pending cultures, likely discharge home one to 2 days Alejandra Vanessa MD Dec 26, 2016 13:16
[2016-12-26] MEDS: DAPTOmycin INJ 500 MG in SODIUM CHLORIDE 0.9% INJ 100 ML IV SCH (13:44)
[2016-12-26] MEDS ORDERED: ALPRAZolam 0.5 MG TAB PO ONE (15:15)
--- NOTE | 2016-12-26 15:18 | ECHRPT ---
Indication: SEPSIS, R/O ENDOCARDITIS CONCLUSIONS Normal left ventricular size. Wall thickness is normal. The left ventricular systolic function is hyperdynamic with an estimated ejection fraction in the ra nge of 65- 70%. No regional wall motion abnormalities are present. There is a small pericardial effusion present. No evidence of hemodynamic compromise. BP: 165 / 70 HR: 54 Rhythm: Sinus MEASUREMENTS (Male / Female) Normal Values Technical Quality:Technically difficult study 2D ECHO LV Diastolic Diameter PLAX 4.9 cm 4.2 - 5.9 / 3.9 - 5.3 cm LV Systolic Diameter PLAX 3.4 cm IVS Diastolic Thickness 0.8 cm 0.6 - 1.0 / 0.6 - 0.9 cm LVPW Diastolic Thickness 0.7 cm 0.6 - 1.0 / 0.6 - 0.9 cm LV Relative Wall Thickness 0.3 LVOT Diameter 1.7 cm Aortic Root Diameter 2.2 cm LA Systolic Diameter LX 3.7 cm 3.0 - 4.0 / 2.7 - 3.8 cm M-MODE AV Cusp Separation MM 2.0 cm DOPPLER AV Peak Velocity 128.0 cm/s AV Peak Gradient 6.6 mmHg AV Mean Gradient 3.0 mmHg AV Velocity Time Integral 29.6 cm LVOT Peak Velocity 117.0 cm/s LVOT Peak Gradient 5.5 mmHg LVOT Velocity Time Integral 25.5 cm LVOT Cardiac Index 1670.8 cm/minm AV Area Cont Eq vti 2.0 cm AV Area Cont Eq pk 2.1 cm Mitral E Point Velocity 128.0 cm/s Mitral A Point Velocity 41.1 cm/s Mitral E to A Ratio 3.1 LV E' Lateral Velocity 7.3 cm/s Mitral E to LV E' Lateral Ratio 17.5 LV E' Septal Velocity 9.5 cm/s Mitral E to LV E' Septal Ratio 13.5 TR Peak Velocity 221.0 cm/s TR Peak Gradient 19.5 mmHg PV Peak Velocity 56.4 cm/s PV Peak Gradient 1.3 mmHg FINDINGS LEFT VENTRICLE Normal left ventricular size. Wall thickness is normal. The left ventricular systolic function is hyperdynamic with an estimated ejection fraction in the ra nge of 65- 70%. No regional wall motion abnormalities are present. Doppler parameters are consistent with a pseudonormal left ventricular filling pattern with concomin ant abnormal relaxation and increased filling pressure (grade 2 diastolic dysfunction). PERICARDIUM There is a small pericardial effusion present. No evidence of hemodynamic compromise. Satnam Traore MD (Electronically Signed) Final Date:26 December 2016 15:17
[2016-12-26] MEDS ORDERED: ONDANSETRON HCL 4 MG/2 ML VIAL IV PUSH PRN (17:30)
--- NOTE | 2016-12-26 17:48 | PD.CARD.PN ---
Subjective Subjective Remarks No cardiac complaints, notes belly pain Objective Medications Administered Medications Medications (Trade) Dose Ordered Sig/Ayaz Route PRN Reason Start Time Stop Time Status Last Admin Dose Admin Sodium Chloride (NS Flush) 2 ml BID IV FLUSH 12/24/16 09:00 12/26/16 08:11 Pantoprazole Sodium (Protonix) 40 mg DAILY PO 12/24/16 09:00 12/26/16 08:11 Aspirin (Aspirin) 325 mg BID PO 12/25/16 21:00 12/26/16 08:11 Azathioprine (Imuran) 50 mg DAILY PO 12/26/16 09:00 12/26/16 10:12 Calcium Carbonate (Oscal) 500 mg BID PO 12/25/16 21:00 12/26/16 08:10 Fluoxetine HCl (PROzac) 20 mg BID PO 12/25/16 21:00 12/26/16 08:11 Folic Acid (Folate) 1 mg HS PO 12/25/16 21:00 12/26/16 00:01 Gabapentin (Neurontin) 800 mg TID PO 12/25/16 13:00 12/26/16 13:44 Hydromorphone HCl 2 mg 2 mg BID PO 12/25/16 21:00 12/26/16 08:11 Daptomycin/Sodium Chloride (Cubicin Inj/NS Inj) 100 ml @ 200 mls/hr Q24H IV 12/25/16 13:00 12/26/16 13:44 Vital Signs / I&O Vital Signs Date Time Temp Pulse Resp B/P Pulse Ox O2 Delivery O2 Flow Rate FiO2 12/26/16 16:00 97.7 62 20 146/65 95 12/26/16 12:31 18 12/26/16 12:00 97.1 43 20 136/56 95 12/26/16 09:11 18 12/26/16 08:00 97.8 54 20 165/75 97 12/26/16 05:27 97.1 42 14 126/54 93 12/26/16 00:05 98.6 55 22 156/58 98 12/25/16 22:06 48 18 95/49 95 12/25/16 22:00 47 12/25/16 22:00 47 12/25/16 20:27 96 21 12/25/16 20:16 40 20 79/58 12/25/16 20:09 96.6 46 22 86/59 99 I/O 12/25/16 12/25/16 12/25/16 12/26/16 12/26/16 12/26/16 07:00 15:00 23:00 07:00 15:00 23:00 Intake Total 100 ml 790 ml 1000 ml 480 ml Output Total 200 ml 650 ml Balance -100 ml 140 ml 1000 ml 480 ml Intake Oral 360 ml 480 ml IV Total 100 ml 430 ml 1000 ml Output Urine Total 200 ml 650 ml # Voids 4 2 8 # Bowel Movements 2 3 2 8 Physical Exam GENERAL: This is a well-nourished, well-developed patient, in no apparent distress. CARDIOVASCULAR: Regular rate and rhythm without murmurs, gallops, or rubs. RESPIRATORY: Clear to auscultation. Breath sounds equal bilaterally. No wheezes , rales, or rhonchi. GASTROINTESTINAL: Abdomen soft, non-tender, nondistended. Normal active bowel sounds MUSCULOSKELETAL: Extremities without clubbing, cyanosis, or edema. NEURO: Alert & Oriented x4 to person, place, time, situation. Moves all ext x4 Laboratory Laboratory Tests Test 12/25/16 12/25/16 12/26/16 12/26/16 22:04 22:37 03:30 09:24 Stool C. difficile Toxin (PCR) INVALID Stl C. difficile Toxin INVALID Epiderm 027 Total Creatine Kinase 66 U/L 52 U/L 70 U/L Troponin I LESS THAN 0.02 0.02 NG/ML 0.02 NG/ML NG/ML Imaging Last Impressions Chest X-Ray 12/23/16 2335 Signed Impressions: Service Date/Time: Friday, December 23, 2016 23:42 - CONCLUSION: No acute cardiopulmonary disease identified. Denny Clark MD Head CT 12/23/16 0000 Signed Impressions: Service Date/Time: Friday, December 23, 2016 23:43 - CONCLUSION: No acute intracranial findings. Denny Clark MD Assessment and Plan Problem List: (1) Bradycardia Assessment and Plan: improved, no cardiac sx, no significant findings on echo (2) Atypical chest pain Assessment and Plan: very atypical and not really even in her chest (lower abdomen); no indication of ACS, would consider outpatient stress test. Assessment and Plan will sign off and ask that she f/u with Dr. Greenberg in 1-2 weeks. Satnam Traore MD Dec 26, 2016 17:48
[2016-12-26] MEDS ORDERED: traMADol HCL 50 MG TAB PO ONE (18:15)
[2016-12-26] MEDS ORDERED: SODIUM CHLORID 0.9% 500 ML INJ 500 ML IV ONE (19:00)
[2016-12-26] MEDS: predniSONE 20 MG TAB PO SCH (20:14)
[2016-12-26] MEDS ORDERED: LORazepam 2 MG/ML VIAL IV PUSH ONE (23:00)
[2016-12-27 08:00] VITALS: BP 121/54; PULSE 49; RESP 20; TEMP 97.8; O2SAT 91
[2016-12-27 08:49] LABS: AUTOMATED NEUTROPHIL # 8.6 TH/MM3 (1.8-7.7); BASOPHIL % 0.1 % (0.0-2.0); EOSINOPHIL % 0.3 % (0.0-4.0); HEMATOCRIT 36.1 % (35.0-46.0); HEMO FLAGS DIFF FINAL; LYMPH % 16.6 % (9.0-44.0); LYMPHOCYTE # 1.9 TH/MM3 (1.0-4.8); MEAN CELL VOLUME 81.5 FL (80.0-100.0); MEAN CORPUSCULAR HEMOGLOBIN 25.6 PG (27.0-34.0); MEAN CORPUSCULAR HGB CONC 31.5 % (32.0-36.0); PLATELET COUNT 273 TH/MM3 (150-450); RED BLOOD COUNT 4.42 MIL/MM3 (4.00-5.30); RED CELL DISTRIBUTION WIDTH 16.8 % (11.6-17.2); WHITE BLOOD COUNT 11.3 TH/MM3 (4.0-11.0)
[2016-12-27 09:04] LABS: BICARBONATE 26.2 MEQ/L (21.0-32.0); MAGNESIUM 2.1 MG/DL (1.5-2.5)
--- NOTE | 2016-12-27 09:39 | HHI.PR ---
Subjective Remarks Patient seen and evaluated today in follow-up for bacteremia and pain. Pain is controlled. Less anxiety after Ativan Objective Vitals Vital Signs Date Time Temp Pulse Resp B/P Pulse Ox O2 Delivery O2 Flow Rate FiO2 12/27/16 08:00 97.8 49 20 121/54 91 12/27/16 04:00 12/26/16 23:30 97 Nasal Cannula 2.00 12/26/16 23:18 98.3 62 18 112/48 91 12/26/16 21:26 96.8 65 16 131/50 90 12/26/16 16:00 97.7 62 20 146/65 95 12/26/16 12:31 18 12/26/16 12:00 97.1 43 20 136/56 95 I/O 12/26/16 12/26/16 12/26/16 12/27/16 12/27/16 12/27/16 06:59 14:59 22:59 06:59 14:59 22:59 Intake Total 1000 ml 480 ml 500 ml Balance 1000 ml 480 ml 500 ml Intake Oral 480 ml IV Total 1000 ml 500 ml # Voids 2 8 3 # Bowel Movements 2 8 2 Result Diagram: 12/27/16 0746 12/27/16 0746 Objective Remarks GENERAL: This is a well-nourished, well-developed patient, in no apparent distress. CARDIOVASCULAR: Sinus bradycardia without murmurs, gallops, or rubs. RESPIRATORY: Clear to auscultation. Breath sounds equal bilaterally. No wheezes , rales, or rhonchi. GASTROINTESTINAL: Abdomen soft, non-tender, nondistended. Normal active bowel sounds MUSCULOSKELETAL: Extremities without clubbing, cyanosis, or edema. NEURO: Alert & Oriented x4 to person, place, time, situation. 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 We'll follow-up with morphology Continue with the daptomycin per ID (3) Anxiety ICD Code: F41.9 Status: Acute Plan: Will increase her Xanax to 3 times a day and continue her Prozac Ativan given overnight Discharge Planning Pending cultures, likely discharge home one to 2 days Alejandra Vanessa MD Dec 27, 2016 09:39
[2016-12-27] MEDS ORDERED: LORazepam 2 MG/ML VIAL IV PUSH PRN (09:45)
[2016-12-27 09:50] VITALS: O2SAT 95
[2016-12-27] MEDS: ASPIRIN 325 MG TAB PO SCH ×2 (10:22→20:04)
[2016-12-27] MEDS: GABAPENTIN 400 MG CAP PO SCH ×3 (10:22→18:15)
[2016-12-27] MEDS: predniSONE 20 MG TAB PO SCH ×2 (10:23→20:04)
[2016-12-27] MEDS: PANTOPRAZOLE SOD 40 MG DELAYED RELEASE TAB PO SCH (10:23)
[2016-12-27] MEDS: azaTHIOprine 50 MG TAB PO SCH (10:24)
[2016-12-27] MEDS: HYDROmorphone HCL 2 MG TAB PO SCH ×2 (10:24→20:04)
[2016-12-27] MEDS: ALPRAZolam 0.5 MG TAB PO PRN ×2 (10:25→20:04)
[2016-12-27] MEDS: FLUoxetine HCL 20 MG CAP PO SCH ×2 (10:25→20:03)
[2016-12-27] MEDS: CALCIUM CARBONATE 1.25 GM (CA 500 MG) TAB PO SCH ×2 (10:25→20:04)
[2016-12-27] MEDS: SODIUM CHLORIDE 0.9% FLUSH 10 ML FLUSH IV FLUSH SCH ×2 (10:26→20:04)
[2016-12-27 12:00] VITALS: BP 128/66; PULSE 51; RESP 20; TEMP 98.9; O2SAT 92
[2016-12-27] MEDS: DAPTOmycin INJ 500 MG in SODIUM CHLORIDE 0.9% INJ 100 ML IV SCH (14:05)
[2016-12-27 16:00] VITALS: BP 141/66; PULSE 60; RESP 20; TEMP 97.9; O2SAT 92
[2016-12-27] MEDS: FOLIC ACID 1 MG TAB PO SCH (20:03)
[2016-12-27 22:17] VITALS: BP 150/70; PULSE 50; RESP 16; TEMP 98; O2SAT 95
[2016-12-28 01:37] VITALS: BP 144/71; PULSE 50; RESP 18; TEMP 96.9; O2SAT 93
[2016-12-28 08:00] VITALS: BP 153/74; PULSE 53; RESP 19; TEMP 98.2; O2SAT 95
[2016-12-28] MEDS: CALCIUM CARBONATE 1.25 GM (CA 500 MG) TAB PO SCH (08:30)
[2016-12-28] MEDS: azaTHIOprine 50 MG TAB PO SCH (08:30)
[2016-12-28] MEDS: ASPIRIN 325 MG TAB PO SCH (08:31)
[2016-12-28] MEDS: HYDROmorphone HCL 2 MG TAB PO SCH (08:31)
[2016-12-28] MEDS: GABAPENTIN 400 MG CAP PO SCH (08:32)
[2016-12-28] MEDS: FLUoxetine HCL 20 MG CAP PO SCH (08:32)
[2016-12-28] MEDS: predniSONE 20 MG TAB PO SCH (08:32)
[2016-12-28] MEDS: PANTOPRAZOLE SOD 40 MG DELAYED RELEASE TAB PO SCH (08:32)
[2016-12-28] MEDS: SODIUM CHLORIDE 0.9% FLUSH 10 ML FLUSH IV FLUSH SCH (08:33)
[2016-12-28] MEDS: ALPRAZolam 0.5 MG TAB PO PRN (08:35)
[2016-12-28 09:39] VITALS: RESP 18
--- NOTE | 2016-12-28 10:37 | HHI.PR ---
Addendum to Inpatient Note Additional Information ANAEROBIC BLOOD CULTURE Final 12/28/16 CULTURE GROWING STAPH SP COAGULASE NEGATIVE X 2 MORPHOLOGIES NO FURTHER WORKUP Blood clx cw contaminant; afebrile will dc daptomycin OK to dc [place] Kathleen Murray MD Dec 28, 2016 10:37
[2016-12-28] MEDS ORDERED: LOPE-1 PO (11:09)
[2016-12-28] MEDS ORDERED: PRED20 PO (11:09)
--- NOTE | 2016-12-28 11:10 | HHI.DCPOC ---
Discharge Care Plan Diagnosis: (1) Anxiety (2) Allergic reaction to drug (3) Bradycardia Goals to Promote Your Health * To prevent worsening of your condition and complications * To maintain your health at the optimal level Directions to Meet Your Goals Take your medications as prescribed Follow your dietary instruction Follow activity as directed Keep your appointments as scheduled Take your immunizations and boosters as scheduled If your symptoms worsen call your PCP, if no PCP go to Urgent Care Center or Emergency Room Smoking is Dangerous to Your Health. Avoid second hand smoke Call the 24-hour hour crisis hotline for domestic abuse at Alejandra Vanessa MD Dec 28, 2016 11:10
--- NOTE | 2016-12-28 11:15 | HHI.DS ---
Discharge Summary Admission Date Dec 24, 2016 at 01:43 Discharge Date: Dec 28, 2016 Admitting Diagnosis sepsis (1) Vasculitis ICD Code: I77.6 (2) Anxiety ICD Code: F41.9 (3) Allergic reaction to drug ICD Code: T78.40XA Procedures none Brief History - From Admission 56-year-old female with PMH of REESE/Raynauds, left dropped foot, who came to the ED for further evaluation with complaints of aching all over like she was hit by a bus. She says she has an autoimmune disease. She has many notes disease and vasculitis. She was well until December 2012 when she became paralyzed in the left foot. This was attributed to autoimmune disease. She sees her rheumatology. She is currently on Imuran 50 mg a day and prednisone 10 mg. She has been on Dilaudid. She was on 4 mg 4 times a day but has been tapered to 2 mg twice a day. She had bilateral mastectomy done a few months ago because she had artificial breaths and was thought she might be having an autoimmune reaction to the implants. Today she is having some left-sided chest pain. She aches all over area she has pain in the left side of her mouth. She has lost several teeth and has been told that due to her autoimmune disease. She says that nobody can figure out what's wrong with her. She has got [facility] and they cannot figure it out. She has been having intermittent headache for the past month. She says she has no prior history of headaches. She has a throbbing bilateral headache which is sometimes occipital. She has no numbness tingling or paresthesias except for the weakness of the left foot foot. Says she has left paralyzed foot and dropped foot. CBC/BMP: 12/27/16 0746 12/27/16 0746 Significant Findings Laboratory Tests Test 12/25/16 12/25/16 12/27/16 22:04 22:37 07:46 Stool C. difficile Toxin (PCR) INVALID (NEGATIVE) Stl C. difficile Toxin INVALID Epiderm 027 (NEGATIVE) Troponin I LESS THAN 0.02 NG/ML (0.02-0.05) White Blood Count 11.3 TH/MM3 (4.0-11.0) Hemoglobin 11.4 GM/DL (11.6-15.3) Mean Corpuscular Hemoglobin 25.6 PG (27.0-34.0) Mean Corpuscular Hemoglobin 31.5 % Concent (32.0-36.0) Neutrophils (%) (Auto) 76.0 % (16.0-70.0) Neutrophils # (Auto) 8.6 TH/MM3 (1.8-7.7) Sodium Level 147 MEQ/L (136-145) Potassium Level 3.0 MEQ/L (3.5-5.1) Chloride Level 111 MEQ/L (98-107) Calcium Level 8.0 MG/DL (8.5-10.1) Imaging Last Impressions Chest X-Ray 12/23/16 2335 Signed Impressions: Service Date/Time: Friday, December 23, 2016 23:42 - CONCLUSION: No acute cardiopulmonary disease identified. Denny Clark MD Head CT 12/23/16 0000 Signed Impressions: Service Date/Time: Friday, December 23, 2016 23:43 - CONCLUSION: No acute intracranial findings. Denny Clark MD PE at Discharge GENERAL: This is a well-nourished, well-developed patient, in no apparent distress. CARDIOVASCULAR: Sinus bradycardia without murmurs, gallops, or rubs. RESPIRATORY: Clear to auscultation. Breath sounds equal bilaterally. No wheezes , rales, or rhonchi. GASTROINTESTINAL: Abdomen soft, non-tender, nondistended. Normal active bowel sounds MUSCULOSKELETAL: Extremities without clubbing, cyanosis, or edema. NEURO: Alert & Oriented x4 to person, place, time, situation. Moves all ext x4 Hospital Course patient was admitted with myalgias and had fever, tachycardia and positive BC on admission. She was treated empirically for sepsis with vancomycin and had an allergic reaction. She then became tachycardic and was seen by cardiology and had a normal echo with asymptomatic bradycardia. Her BC were found to be contaminant. She was also anaya by ID. No other source for her symptoms was found and she was therefore treated for a flare of her autoimmune disorder(s) with a short course of steroids. Pt Condition on Discharge: Good Discharge Disposition: Discharge Home Discharge Time: > 30 minutes Discharge Instructions DIET: Follow Instructions for: As Tolerated, No Restrictions Activities you can perform: Regular-No Restrictions Follow up Referrals: Rheumatology - 1 Week with glen New Medications: Loperamide (Imodium A-D) 2 Mg Capsule 2 MG PO DIRECTED One capsule after each loose stool. Not to exceed 8 tablets per day. PRN DIARRHEA #20 Ref 0 CAP Prednisone (Prednisone) 20 Mg Tab 20 MG PO BID then resume regular dose Inflammation #10 TAB Continued Medications: Albuterol 8.5 GM Inh (Proair Hfa 8.5 GM Inh) 90 Mcg/Act Aer 1 PUFF INH Q4H 108 mcg/actuation PRN SHORTNESS OF BREATH #1 Ref 0 INHALER Alprazolam (Xanax) 0.5 Mg Tab 0.5 MG PO BID PRN ANXIETY Ref 0 TAB Aspirin (Aspirin) 325 Mg Tab 325 MG PO BID #30 Ref 0 TAB Azathioprine (Imuran) 50 Mg Tab 50 MG PO DAILY Hazardous agent: use appropriate precautions for handling and disposal. Immunosuppression #30 Ref 0 TAB Calcium Carbonate (Calcium Carbonate) 1,500 Mg Tab 500 MG PO BID 1,500 mg calcium carbonate (600 mg elemental calcium) Calcium Supplement Ref 0 TAB Fluoxetine (Prozac) 20 Mg Cap 20 MG PO BID #30 Ref 0 CAP Folic Acid (Folic Acid) 1 Mg Tablet 1 MG PO HS Gabapentin (Gabapentin) 800 Mg Tab 800 MG PO TID #90 Ref 0 TAB Hydromorphone (Dilaudid) 2 Mg Tab 2 MG PO BID Pain Management Ref 0 TAB Prednisone (Prednisone) 10 Mg Tab 10 MG PO DAILY Ref 0 TAB Alejandra Vanessa MD Dec 28, 2016 11:15
== END 2016-12-28 12:32 | disposition home or self-care (01) | DRG 872 ==
LOC: PHED 21:42 → PHEDA 12-24 01:43 → PHEDH 12-24 05:43 → PHICU 12-24 07:42 → PH3A 12-25 16:52
PROVIDERS: ADMIT Hospitalist; ATTEND Hospitalist
DX: A41.9 Sepsis, unspecified organism (principal); D89.9 Disorder involving the immune mechanism, unspecified; L50.0 Allergic urticaria; Y92.238 Other place in hospital as the place of occurrence of the external cause; T36.8X5A Adverse effect of other systemic antibiotics, initial encounter; I73.00 Raynaud's syndrome without gangrene; I77.6 Arteritis, unspecified; F41.9 Anxiety disorder, unspecified; J44.9 Chronic obstructive pulmonary disease, unspecified; K21.9 Gastro-esophageal reflux disease without esophagitis; F17.210 Nicotine dependence, cigarettes, uncomplicated; Z90.13 Acquired absence of bilateral breasts and nipples; Z98.82 Breast implant status; F32.9 Major depressive disorder, single episode, unspecified; R19.7 Diarrhea, unspecified; R00.1 Bradycardia, unspecified; R07.89 Other chest pain
CPT/HCPCS: 70450; 71010; 76937; 80048; 81001; 82550; 83605; 83735; 84484; 85025; 85610; 85652; 85730; 86403; 87040; 87077; 87186; 87205; 87425; 87493; 87506; 93005; 93306; 96361; 96374; 96375; J0171; J0878; J1170; J1200; J1720; J1885; J2020; J2060; J2405; J2543; J2930; J3370; J7030; J7040; J7050; J7500; J7512

== ENCOUNTER 2017-04-09 10:14 | Inpatient (IN) | payer MEDICARE, MEDICAID ==
[~2017-04-09] VITALS: Ht 165.1 cm; Wt 75.0 kg
[~2017-04-09 10:14] MED LIST changes: -ALBU8I INH; +ALPR.5 PO; -AZIT250T3 PO; -BACT2CRE TOP; -CALC500C6 PO; +CALC600T4 PO; +DILA2TAB2 PO; -DILA4TAB10 PO; -FOLI1TAB PO; +FOLI1TAB6 PO; +IMUR50TA PO; +LOPE-1 PO; -MUCI600T PO; -OMEP40CA2 PO; -PERC10TA27 PO; +PRED10 PO; -PRED1TAB PO; -STOO100T PO; -XANA0.5T PO
[2017-04-09 10:19] VITALS: BP 139/66; PULSE 81; RESP 13; TEMP 99.3; O2SAT 99
[2017-04-09 10:39] VITALS: BP 149/70; PULSE 89; RESP 18; O2SAT 98
[2017-04-09] MEDS ORDERED: OMEP40CA2 PO (10:49)
[2017-04-09] MEDS ORDERED: LACTCAP8 PO (10:49)
[2017-04-09] MEDS ORDERED: VITA100036 PO (10:49)
[2017-04-09] MEDS ORDERED: MIRA3350 PO (10:49)
--- NOTE | 2017-04-09 10:50 | PD ---
HPI Chief Complaint: Pain: Acute or Chronic Time Seen by Provider: 10:30 Travel History International Travel<30 days: No Contact w/Intl Traveler<30days: No Traveled to known affect area: No History of Present Illness HPI 56-year-old female presents with left arm pain and tingling and difficulty getting in with a specialist for a clot to an artery in her chest. She states that she was referred that they are out of town and she is worried as her pain is getting worse. She states when she talked to the specialists he said he may even have to refer her to an interventional specialists anyways so she wanted to come here to get checked out. She states she has not seen a specialist for this yet. She states she's also having intermittent cramps to her left leg is worried she may be has a blood clot there. She denies any other specific emergent complaints at this time. Quality pain is cramping. Severity is severe per patient. She states the pain is worse if she moves her arm. She denies other specific modifying factors. 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 ) Anxiety: Yes Depression: No Heart Rhythm Problems: Yes (MURMUR) Cancer: No Cardiac Catheterization: No Cardiovascular Problems: Yes High Cholesterol: No Chemotherapy: No Chest Pain: No Congestive Heart Failure: No COPD: Yes Cerebrovascular Accident: No Diabetes: No Diminished Hearing: No Endocrine: No Gastrointestinal Disorders: Yes (PANCREATITIS) GERD: Yes Genitourinary: No Headaches: No Hiatal Hernia: No Hypertension: No Immune Disorder: Yes (reynauds, vasculitis, REESE) Implanted Vascular Access Dvce: No Kidney Stones: No Musculoskeletal: Yes (left paralyzed foot) Neurologic: Yes Psychiatric: Yes Reproductive: No Respiratory: No Immunizations Current: No Migraines: Yes Myocardial Infarction: No Pancreatitis: Yes Radiation Therapy: No Renal Failure: No Seizures: No Sickle Cell Disease: No Sleep Apnea: No Thyroid Disease: No ?: Not Menopausal: Yes Dilation and Curettage (D&C): Yes Tubal Ligation: Yes Past Surgical History AICD: No Appendectomy: Yes Arteriovenous Shunt: No Body Medical Devices: GEL BREAST IMPLANTS removed Cardiac Surgery: No Coronary Artery Bypass Graft: No Ear Surgery: No Endocrine Surgery: No Eye Surgery: Yes (L orbital fx and subsequent plate 2009) Gynecologic Surgery: Yes (HYSTERECTOMY,D&C, TUBAL LIGATION) Hysterectomy: Yes Insulin Pump: No Joint Replacement: No Neurologic Surgery: No Oral Surgery: Yes Pacemaker: No Thoracic Surgery: No Tonsillectomy: Yes Other Surgery: Yes (PILONIDAL CYST/ Breast implants and explants) Family History Family Myocardial Infarction: Yes (dad) Social History Alcohol Use: Yes (OCC) Tobacco Use: Yes ("Few cigarettes per day" ) Substance Use: No Allergies-Medications (Allergen,Severity, Reaction): Coded Allergies: vancomycin (Unverified Allergy, Severe, Rash, 01/26/17) 12/24/16 Reported Meds & Prescriptions Reported Meds & Active Scripts Active Proair Hfa 8.5 GM Inh (Albuterol Sulfate) 90 Mcg/Act Aer 1 Puff INH Q4H PRN 108 mcg/actuation Reported Probiotic (Lactobacillus Acidophilus) 10 Billion Cell Cap 1 Cap PO DAILY Vitamin D3 (Cholecalciferol) 1,000 Unit Cap Unknown Dose PO DAILY Omeprazole 40 Mg Cap 40 Mg PO DAILY Miralax Powder (Polyethylene Glycol 3350 Powder) 17 Gm Powd 17 Gm PO DAILY Mix and dissolve one measuring cap-ful (17 grams) in water or juice. Dilaudid (Hydromorphone HCl) 2 Mg Tab 2 Mg PO BID Gabapentin 800 Mg Tab 800 Mg PO TID Folic Acid 1 Mg Tablet 1 Mg PO HS Prozac (Fluoxetine HCl) 20 Mg Cap 20 Mg PO BID Imuran (Azathioprine) 50 Mg Tab 50 Mg PO BID Hazardous agent: use appropriate precautions for handling and disposal. Prednisone 10 Mg Tab 10 Mg PO DAILY Calcium Carbonate 1,500 Mg Tab 500 Mg PO BID 1,500 mg calcium carbonate (600 mg elemental calcium) Aspirin 325 Mg Tab 325 Mg PO BID Xanax (Alprazolam) 0.5 Mg Tab 0.5 Mg PO BID PRN Review of Systems Except as stated in HPI: all other systems reviewed are Neg Physical Exam Narrative GENERAL: Well-nourished, well-developed patient. SKIN: Warm and dry. HEAD: Normocephalic and atraumatic. EYES: No injection or drainage. ENT: No nasal drainage noted. NECK: Supple, trachea midline. CARDIOVASCULAR: Regular rate and rhythm RESPIRATORY: No increased effort. No accessory muscle use. GASTROINTESTINAL: Abdomen soft, non-tender, nondistended. EXTREMITIES: No edema. Pain with left calf, palpable posterior tibialis pulse, pain with left arm, decreased capillary refill noted to left hand, tingling to left hand NEUROLOGICAL: Awake and alert. Notes decreased sensation to left arm, Normal speech. Data Data Last Documented VS Vital Signs Date Time Temp Pulse Resp B/P (MAP) Pulse Ox O2 Delivery O2 Flow Rate FiO2 04/09/17 12:43 98.6 58 20 132/63 (86) 98 Room Air Orders Orders Complete Blood Count With Diff (04/09/17 10:35) Basic Metabolic Panel (Bmp) (04/09/17 10:35) Act Partial Throm Time (Ptt) (04/09/17 10:35) Prothrombin Time / Inr (Pt) (04/09/17 10:35) Iv Access Insert/Monitor (04/09/17 10:35) Ecg Monitoring (04/09/17 10:35) Oximetry (04/09/17 10:35) Us Leg Venous Doppler (04/09/17 ) Urinalysis - C+S If Indicated (04/09/17 11:48) Consult Vascular Surgery (04/09/17 ) Diet Npo (04/09/17 Lunch) Admit Order (Ed Use Only) (04/09/17 13:29) Labs Laboratory Tests Test 04/09/17 10:40 04/09/17 12:41 White Blood Count 17.1 TH/MM3 Red Blood Count 5.36 MIL/MM3 Hemoglobin 15.3 GM/DL Hematocrit 46.9 % Mean Corpuscular Volume 87.6 FL Mean Corpuscular Hemoglobin 28.5 PG Mean Corpuscular Hemoglobin Concent 32.6 % Red Cell Distribution Width 16.5 % Platelet Count 433 TH/MM3 Mean Platelet Volume 7.6 FL Neutrophils (%) (Auto) 87.7 % Lymphocytes (%) (Auto) 9.4 % Monocytes (%) (Auto) 2.3 % Eosinophils (%) (Auto) 0.2 % Basophils (%) (Auto) 0.4 % Neutrophils # (Auto) 15.0 TH/MM3 Lymphocytes # (Auto) 1.6 TH/MM3 Monocytes # (Auto) 0.4 TH/MM3 Eosinophils # (Auto) 0.0 TH/MM3 Basophils # (Auto) 0.1 TH/MM3 CBC Comment DIFF FINAL Differential Comment Prothrombin Time 10.1 SEC Prothromb Time International Ratio 0.9 RATIO Activated Partial Thromboplast Time 25.1 SEC Blood Urea Nitrogen 17 MG/DL Creatinine 1.01 MG/DL Random Glucose 120 MG/DL Calcium Level 9.6 MG/DL Sodium Level 137 MEQ/L Potassium Level 4.1 MEQ/L Chloride Level 102 MEQ/L Carbon Dioxide Level 24.9 MEQ/L Anion Gap 10 MEQ/L Estimat Glomerular Filtration Rate 57 ML/MIN Urine Color LIGHT-YELLOW Urine Turbidity CLEAR Urine pH 6.0 Urine Specific [place] 1.004 Urine Protein NEG mg/dL Urine Glucose (UA) NEG mg/dL Urine Ketones NEG mg/dL Urine Occult Blood TRACE Urine Nitrite NEG Urine Bilirubin NEG Urine Urobilinogen LESS THAN 2.0 MG/DL Urine Leukocyte Esterase NEG Urine RBC LESS THAN 1 /hpf Microscopic Urinalysis Comment CULT NOT INDICATED MDM Medical Decision Making Medical Screen Exam Complete: Yes Emergency Medical Condition: Yes Medical Record Reviewed: Yes (pmh confirmed) Interpretation(s) MRA outpatient shows subclavian still with occlusion of proximal left subclavian artery from 04/07 CBC & BMP Diagram 04/09/17 10:40 Calcium Level 9.6 Last 24 hours Impressions Lower Extremity Ultrasound 04/09/17 0000 Signed Impressions: Service Date/Time: Sunday, April 09, 2017 10:54 - CONCLUSION: Negative exam. No sonographic or Doppler findings of deep venous thrombosis. Gee Montesinos MD Differential Diagnosis subclavian steal syndrome, dvt, strain.... Narrative Course will check labs and discuss with vascular patient updated, agrees to plan, dr roberson evaluating patient Physician Communication Physician Communication dr roberson will come see patient dr karol alva to keep npo and will review images dr roberson states to start on heparin drip with bolus and can eat dr phillips agrees to admit Diagnosis Primary Impression: Subclavian steal syndrome Admitting Information Admitting Physician Requests: Admit Martine Mayen MD Apr 09, 2017 10:50
[2017-04-09 11:00] LABS: BASOPHIL # 0.1 TH/MM3 (0-0.2); BASOPHIL % 0.4 % (0.0-2.0); EOSINOPHIL % 0.2 % (0.0-4.0); HEMATOCRIT 46.9 % (35.0-46.0); HEMOGLOBIN 15.3 GM/DL (11.6-15.3); LYMPH % 9.4 % (9.0-44.0); LYMPHOCYTE # 1.6 TH/MM3 (1.0-4.8); MEAN CELL VOLUME 87.6 FL (80.0-100.0); MEAN CORPUSCULAR HEMOGLOBIN 28.5 PG (27.0-34.0); MEAN CORPUSCULAR HGB CONC 32.6 % (32.0-36.0); MEAN PLATELET VOLUME 7.6 FL (7.0-11.0); MONO % 2.3 % (0.0-8.0); MONOCYTE # 0.4 TH/MM3 (0-0.9); NEUT % 87.7 % (16.0-70.0); PLATELET COUNT 433 TH/MM3 (150-450); RED BLOOD COUNT 5.36 MIL/MM3 (4.00-5.30); RED CELL DISTRIBUTION WIDTH 16.5 % (11.6-17.2); WHITE BLOOD COUNT 17.1 TH/MM3 (4.0-11.0)
[2017-04-09 11:09] LABS: INTERNATIONAL NORMALIZED RATIO 0.9 RATIO; PROTHROMBIN TIME - PATIENT 10.1 SEC (9.8-11.6)
[2017-04-09 11:22] LABS: BICARBONATE 24.9 MEQ/L (21.0-32.0); CALCIUM 9.6 MG/DL (8.5-10.1); CREATININE 1.01 MG/DL (0.50-1.00)
--- NOTE | 2017-04-09 11:46 | RADRPT ---
EXAM DATE/TIME: 04/09/2017 10:54 [facility] COMPARISON: US LEG LEFT VENOUS DOPPLER, September 25, 2013, 9:49. INDICATIONS : Left leg pain. MEDICAL HISTORY : Chronic obstructive pulmonary disease. Gastroesophageal reflux disease. Migriane. Pancreatitis. R aynaud's. vasculitis. SURGICAL HISTORY : Tonsillectomy. Appendectomy. Hysterectomy. Left orbiltal fracture repair, plate. Dilation and curett age. Orthopedic surgery, left foot. Tubal ligation. Breast inplants and reversal. Pilonidal cyst merle gil. ENCOUNTER: Initial ACUITY: 1 day PAIN SCORE: 0/10 LOCATION: Left leg. TECHNIQUE: Venous ultrasound of the leg was performed from the inguinal ligament to the proximal calf. Real-jeremi e, color Doppler and spectral tracing, compression and augmentation techniques were used. FINDINGS: There is normal compressibility of the deep venous system from the inguinal region to the proximal ca lf. No echogenic clot is seen in the lumen of the common femoral, femoral, popliteal, and posterior tibial veins. There is a normal response of the venous system to proximal and distal augmentation an d respiration. CONCLUSION: Negative exam. No sonographic or Doppler findings of deep venous thrombosis. Gee Montesinos MD on April 09, 2017 at 11:44 Board Certified Radiologist. This report was verified electronically.
[2017-04-09 12:43] VITALS: BP 132/63; PULSE 58; RESP 20; TEMP 98.6; O2SAT 98
[2017-04-09 13:22] LABS: BILIRUBIN, URINE NEG (NEG); BLOOD, URINE TRACE (NEG); GLUCOSE,URINE NEG (NEG); KETONE, URINE NEG (NEG); NITRITE,URINE NEG (NEG); URINE COLOR LIGHT-YELLOW (YELLW/STRAW); URINE LEUKOCYTE ESTERASE NEG (NEG)
[2017-04-09] MEDS ORDERED: HEPARIN SODIUM - IV 10,000 UNITS/10 ML VIAL IV PUSH ONE (14:15)
[2017-04-09] MEDS ORDERED: HEPARIN-D5W 25,000 U/250 ML 250 ML IV PRN (14:15)
--- NOTE | 2017-04-09 14:51 | HHI.HP ---
[facility] Service Family Medicine Primary Care Physician Arsen Mejias MD Admission Diagnosis subclavian steal syndrome Diagnoses: International Travel<30 Days: No Contact w/Intl Traveler<30days: No Known Affected Area: No History of Present Illness Patient is a 56 year old woman with a medical history significant for reportedly polyarteritis nodosa, Raynaud's disease, rheumatoid arthritis, and DVT. 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 Pulido after an MRA of her chest and upper extremities performed sometime this past week showed a proximal subclavian artery occlusion and vertebral artery steal syndrome. She was then sent to the ED here for further evaluation. She reports her left 4th and 5th fingers about 2 weeks ago started to go completely numb. The ventral aspect of her left arm also went numb. States she went to her primary care doctor this past Wednesday and they could not obtain a blood pressure reading of her left arm. She states she is not currently on any anticoagulants. States she was taking Lovenox for about 2 months about 4 years ago but stated she did not have insurance so she stopped administering these. She is currently taking 325 mg aspirin daily. She states for the past 2 weeks she has had left facial, shoulder, and arm pain and swelling. She denies a history of hepatitis. (Kristian Fraser MD R2) Review of Systems Constitutional: DENIES: Fever, Chills Eyes: DENIES: Blurred vision, Diplopia Respiratory: DENIES: Cough, Sputum production, Shortness of breath Cardiovascular: DENIES: Chest pain, Lower Extremity Edema Gastrointestinal: DENIES: Abdominal pain, Constipation, Diarrhea, Nausea, Vomiting Genitourinary: DENIES: Hematuria, Dysuria (Kristian Fraser MD R2) Past Family Social History Past Medical History REESE Raynaud's disease Left dropped foot Depression Anxiety RA DVT Past Surgical History Hysterectomy, D&C, tubal ligation Left orbital fracture and subsequent plate placement in 2008 Had gel breast implants status post removal x2 Pilonidal cyst removal Appendectomy Tonsillectomy (Kristian Fraser MD R2) Allergies: Coded Allergies: vancomycin (Unverified Allergy, Severe, Rash, 01/26/17) 12/24/16 Family History Mother with COPD Father: at age 56yo from P/E Grandmother with breast cancer at older age Social History Tobacco: 1 PPD since 18yo, still currently smoking Etoh: social occasions Illicit drug use: denies Lives at home with her mother and children Dr. Mejias is her sales promotion manager (Kristian Fraser MD R2) Physical Exam Vital Signs Vital Signs Date Time Temp Pulse Resp B/P (MAP) Pulse Ox O2 Delivery O2 Flow Rate FiO2 04/09/17 12:43 98.6 58 20 132/63 (86) 98 Room Air 04/09/17 10:39 89 18 149/70 (96) 98 Room Air 04/09/17 10:19 99.3 81 13 139/66 (90) 99 Physical Exam GENERAL: NAD, lying comfortably in bed NEURO: Alert. Normal speech. manager welding grossly intact. Unable to dorsiflex left foot. 4/5 strength left lower extremity. 5/5 strength RLE. SKIN: Warm and dry. No rashes or erythema. HEAD: Normocephalic. Atraumatic. EYES: EOMI. No scleral icterus. No injection or drainage. ENT: No nasal drainage. Moist mucous membranes. No oral ulcers or lesions. NECK: Supple, trachea midline. No JVD or lymphadenopathy. No carotid bruits. CARDIOVASCULAR: Regular rate and rhythm without murmurs, rubs, or gallops. Capillary refill < 2 seconds. DP pulses 2+ bilaterally. PT pulse 2+ on the right , faint on left. Brachial pulses palpable bilaterally as well as bilateral radial pulses. RESPIRATORY: Breath sounds clear to auscultation and equal bilaterally, without wheezes, rales, or rhonchi. No accessory muscle use. GASTROINTESTINAL: Abdomen soft, nontender, nondistended, normal BS. No organomegaly or masses. No rebound tenderness. No guarding. MUSCULOSKELETAL: No lower extremity edema. Normal range of motion. BACK: Nontender without obvious deformity. Laboratory Laboratory Tests Test 04/09/17 10:40 04/09/17 12:41 White Blood Count 17.1 Red Blood Count 5.36 Hemoglobin 15.3 Hematocrit 46.9 Mean Corpuscular Volume 87.6 Mean Corpuscular Hemoglobin 28.5 Mean Corpuscular Hemoglobin Concent 32.6 Red Cell Distribution Width 16.5 Platelet Count 433 Mean Platelet Volume 7.6 Neutrophils (%) (Auto) 87.7 Lymphocytes (%) (Auto) 9.4 Monocytes (%) (Auto) 2.3 Eosinophils (%) (Auto) 0.2 Basophils (%) (Auto) 0.4 Neutrophils # (Auto) 15.0 Lymphocytes # (Auto) 1.6 Monocytes # (Auto) 0.4 Eosinophils # (Auto) 0.0 Basophils # (Auto) 0.1 CBC Comment DIFF FINAL Differential Comment Prothrombin Time 10.1 Prothromb Time International Ratio 0.9 Activated Partial Thromboplast Time 25.1 Blood Urea Nitrogen 17 Creatinine 1.01 Random Glucose 120 Calcium Level 9.6 Sodium Level 137 Potassium Level 4.1 Chloride Level 102 Carbon Dioxide Level 24.9 Anion Gap 10 Estimat Glomerular Filtration Rate 57 Urine Color LIGHT-YELLOW Urine Turbidity CLEAR Urine pH 6.0 Urine Specific [place] 1.004 Urine Protein NEG Urine Glucose (UA) NEG Urine Ketones NEG Urine Occult Blood TRACE Urine Nitrite NEG Urine Bilirubin NEG Urine Urobilinogen LESS THAN 2.0 Urine Leukocyte Esterase NEG Urine RBC LESS THAN 1 Microscopic Urinalysis Comment CULT NOT INDICATED (Kristian Fraser MD R2) Result Diagram: 04/09/17 1040 04/09/17 1040 Caprini VTE Risk Assessment Caprini VTE Risk Assessment: Mod/High Risk (score >= 2) Caprini Risk Assessment Model Point Value = 1 Point Value = 2 Point Value = 3 Point Value = 5 Age 41-60 Minor surgery BMI > 25 kg/m2 Swollen legs Varicose veins or History of unexplained or recurrent spontaneous Oral contraceptives or hormone replacement Sepsis (< 1 month) Serious lung disease, including pneumonia (< 1 month) Abnormal pulmonary function Acute myocardial infarction Congestive heart failure (< 1 month) History of inflammatory bowel disease Medical patient at bed rest Age 61-74 Arthroscopic surgery Major open surgery (> 45 min) Laparoscopic surgery (> 45 min) Malignancy Confined to bed (> 72 hours) Immobilizing plaster cast Central venous access Age >= 75 History of VTE Family history of VTE Factor V Leiden Prothrombin [id number] Lupus anticoagulant Anticardiolipin antibodies Elevated serum homocysteine Heparin-induced thrombocytopenia Other congenital or acquired thrombophilia Stroke (< 1 month) Elective arthroplasty Hip, pelvis, or leg fracture Acute spinal cord injury (< 1 month) Prophylaxis Regimen Total Risk Factor Score Risk Level Prophylaxis Regimen 0-1 Low Early ambulation 2 Moderate Order ONE of the following: *Sequential Compression Device (SCD) *Heparin 5000 units SQ BID 3-4 Higher Order ONE of the following medications: *Heparin 5000 units SQ TID *Enoxaparin/Lovenox 40 mg SQ daily (WT < 150 kg, CrCl > 30 mL/min) *Enoxaparin/Lovenox 30 mg SQ daily (WT < 150 kg, CrCl > 10-29 mL/min) *Enoxaparin/Lovenox 30 mg SQ BID (WT < 150 kg, CrCl > 30 mL/min) AND/OR *Sequential Compression Device (SCD) 5 or more Highest Order ONE of the following medications: *Heparin 5000 units SQ TID (Preferred with Epidurals) *Enoxaparin/Lovenox 40 mg SQ daily (WT < 150 kg, CrCl > 30 mL/min) *Enoxaparin/Lovenox 30 mg SQ daily (WT < 150 kg, CrCl > 10-29 mL/min) *Enoxaparin/Lovenox 30 mg SQ BID (WT < 150 kg, CrCl > 30 mL/min) AND *Sequential Compression Device (SCD) (Kristian Fraser MD R2) Assessment and Plan Assessment and Plan 56 year old female with medical history significant for reportedly polyarteritis nodosa, Raynaud's disease, rheumatoid arthritis, and DVT being admitted with subclavian artery stenosis. Patients follows with Dr. Mejias as her sales promotion manager as an outpatient. Code Status Full code Discussed Condition With Dr. Katerin Jacobs (Kristian Fraser MD R2) Attending Attestation Patient seen and examined. Case reviewed and discussed with the resident team. Agree with plan of care as discussed with me and documented in the resident note. pt seen in ED. 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 Mcconnell, appreciate recommendations - Interventional radiology consulted, possible transbrachial recanalization of the subclavian artery to be schedule for this Wednesday - Recent MRA of chest and upper extremities showing a proximal subclavian artery occlusion and vertebral artery steal syndrome - Lower extremity US negative for DVT - Address any modifiable cardiovascular risk factors with patient - Continue smoking cessation counseling with patient (2) Leukocytosis ICD Codes: D72.829 - Elevated white blood cell count, unspecified Status: Acute Plan: Consider a stress response Clinically appears without an acute infectious process Patient also on prednisone at home however this is chronic and a low dose UA clean Lungs ctab Continue to monitor (3) Autoimmune disorder ICD Codes: M35.9 - Systemic involvement of connective tissue, unspecified Status: Chronic Plan: Patient has an extensive rheumatological history, currently following with Dr. Mejias. Patient reporting a history of polyarteritis nodosa, rheumatoid arthritis, as well as Raynaud's disease Continue heparin drip for anticoagulation until endovascular intervention Would appreciate a hematology consult for recommendations on long-term anticoagulation and further workup if needed (4) Anxiety ICD Codes: F41.9 - Anxiety disorder, unspecified Status: Chronic Plan: Continue home Xanax (5) Nutrition, metabolism, and development symptoms ICD Codes: R63.8 - Other symptoms and signs concerning food and fluid intake Plan: Fluids: PO Electrolytes: WNL, continue to monitor Nutrition: Regular DVT prophylaxis: Heparin drip (Kristian Fraser MD R2) Physician Certification 2 Midnight Certification Type: Admission for Inpatient Services Order for Inpatient Services The services are ordered in accordance with Medicare regulations or non- Medicare payer requirements, as applicable. In the case of services not specified as inpatient-only, they are appropriately provided as inpatient services in accordance with the 2-midnight benchmark. Estimated LOS (days): 4 days is the estimated time the patient will need to remain in the hospital, assuming treatment plan goals are met and no additional complications. Post-Hospital Plan: Home (Kristian Fraser MD R2) Problem Qualifiers (1) Leukocytosis: Qualified Codes: D72.823 - Leukemoid reaction Kristian Fraser MD R2 Apr 09, 2017 14:51 Jeaneth Conklin MD Apr 10, 2017 12:30
--- NOTE | 2017-04-09 15:07 | MB ---
cc: MD EDDA,[facility] DATE OF CONSULTATION: 04/09/2017 REASON FOR CONSULTATION: Subclavian artery stenosis, ischemia of the left hand. HISTORY OF PRESENT ILLNESS: This 56-year-old female presented to the emergency room with about a two week history of pain in her left arm and numbness of her left hand. The patient was seen by her primary care physician or, I believe, car shakeout operator, and then referred to Dr. Pulido, and his office referred the patient to the emergency room if there was an urgent problem to be handled. The patient is being worked up by the emergency department physician, and I was consulted to see the patient. This past week the patient had a MRA of the chest and upper extremities. This revealed a proximal subclavian artery occlusion and vertebral artery steal syndrome; hence, the consultation. PAST SURGICAL HISTORY: The past surgical history is that of: 1. Hysterectomy. 2. Appendectomy. 3. Cardiac catheterizations. 4. An aortography with runoff which showed posterior tibial artery occlusion on the left several years ago. 5. Some sort of skin grafting. PAST MEDICAL HISTORY: The medical history is very complex. The patient was diagnosed with autoimmune global anemia, Raynaud's disease and vasculitis. She had bouts of pancreatitis. She has been seen numerous times in this hospital for various problems including deep venous thrombosis, a clot in the abdominal aorta and the veins of the leg and numerous other issues. She has been seen by cardiology also numerous times. She denies being placed on any anticoagulants. SOCIAL HISTORY: The patient drinks occasionally. Smokes about 1-1/2 packs a day since the age of 16, so about 40 years now and has not stopped. 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 PHYSICAL EXAMINATION: GENERAL: The physical examination reveals a 56-year-old female. HEAD, EYES, EARS, NOSE, THROAT: Normocephalic. No trauma to the head. Pupils are equal and reactive. Extraocular muscles intact. NECK: The neck is supple. Bilateral carotid pulses. No bruits. CHEST: Bilateral breath sounds. HEART: Regular rhythm. ABDOMEN: Soft. Active bowel sounds. Scars from previous surgery. PELVIS: Stable. LOWER EXTREMITIES: The patient has bilateral femoral pulses on palpation and bilateral popliteal pulses on palpation. She has palpable dorsalis pedis bilaterally and posterior tibial on the right. On the left, she has Dopplerable posterior tibial. Both feet are very atrophic. The patient has bilateral foot drop and she is unable to walk. UPPER EXTREMITIES: The patient has palpable brachial pulse bilateral, although the left one does appear slightly weaker. She has palpable ulnar and radial on the right and only radial on the left. Capillary refill is slightly decrease in the fingers on the left but clearly it is a viable hand. Neurologically grossly the upper extremities are intact. The patient has normal sensation and normal motor activity of the upper extremities and hands. Lower extremities are as above-noted and are atrophic and the patient is not walking. 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 Immune disorders in the form of vasculitis are described in various forms as Raynaud's phenomenon, Raynaud's disease, autoimmune vasculitis, scleroderma, Takayasu disease, lupus etc; and in addition, rheumatoid arthritis related disorders which are also prevalent and get grouped in the same categories. They all essentially cause some sort of hypercoagulable tendency and these are autoimmune reticular endothelial autoreactive vasculoreactive diseases which may cause clots in the arterial and venous system. In this particular situation, the patient has an occluded subclavian artery proximally just after the takeoff of the aorta. This does not appear to be acute, this appears to be a chronic occlusion, probably more than a month or two old. In addition, the patient has vertebral artery steal syndrome and reverse flow in the vertebral artery as a consequence of the low pressure subclavian artery. In addition, patient is a heavy smoker. At this point, the patient can be heparinized. Hematology consult should be placed. The patient will be referred to interventional radiology for possible transbrachial recanalization of the subclavian artery. Open surgery is out of the question in this situation and if subclavian artery canalization is not effective, there are not many options available. From the surgical point, there is not much to do, but I will be available if any complications were to occur. Thank you very much for the referral. Alvin NICHOLE /2:22 PM /2:45 PM [place]IS
[2017-04-09 15:52] VITALS: BP 146/67; PULSE 70; RESP 18; O2SAT 97
[2017-04-09] MEDS ORDERED: LACTULOSE SYRUP 20 GM/30 ML CUP PO PRN (16:00)
[2017-04-09] MEDS ORDERED: MAGNESIUM HYDROXIDE SUSP 30 ML CUP PO PRN (16:00)
[2017-04-09] MEDS ORDERED: BISACODYL 10 MG SUPP RECTAL PRN (16:00)
[2017-04-09] MEDS ORDERED: NALOXONE HCL 0.4 MG/ML AMP IV PUSH PRN (16:00)
[2017-04-09] MEDS ORDERED: ONDANSETRON HCL 4 MG/2 ML VIAL IVP PRN (16:00)
[2017-04-09] MEDS ORDERED: SENNOSIDES 8.6 MG TAB PO PRN (16:00)
[2017-04-09 16:18] VITALS: O2SAT 98
[2017-04-09] MEDS ORDERED: ALPRAZolam 0.5 MG TAB PO PRN (17:00)
[2017-04-09] MEDS: HYDROmorphone HCL 2 MG TAB PO SCH ×2 (17:00→20:30)
[2017-04-09] MEDS: ALPRAZolam 0.5 MG TAB PO PRN (18:03)
[2017-04-09] MEDS: GABAPENTIN 400 MG CAP PO SCH (18:04)
[2017-04-09] MEDS: HYDROmorphone HCL PF 1 MG/ML VIAL IV PUSH PRN (18:07)
[2017-04-09 20:00] VITALS: BP 119/60; PULSE 76; RESP 16; TEMP 97.4; O2SAT 96
[2017-04-09] MEDS: FLUoxetine HCL 20 MG CAP PO SCH (20:30)
[2017-04-09] MEDS: DOCUSATE SODIUM 50 MG/SENNA 8.6 MG TAB PO SCH (20:30)
[2017-04-09] MEDS: SODIUM CHLORIDE 0.9% FLUSH 10 ML FLUSH IV FLUSH SCH (20:34)
[2017-04-09 22:53] LABS: PROTHROMBIN TIME - PATIENT 10.6 SEC (9.8-11.6)
[2017-04-09] MEDS: LORazepam 1 MG TAB PO PRN (22:53)
[2017-04-10 00:19] VITALS: BP 107/51; PULSE 66; RESP 16; TEMP 97.4; O2SAT 94
[2017-04-10 04:34] LABS: AUTOMATED NEUTROPHIL # 7.5 TH/MM3 (1.8-7.7); BASOPHIL # 0.1 TH/MM3 (0-0.2); BASOPHIL % 0.7 % (0.0-2.0); EOSINOPHIL # 0.2 TH/MM3 (0-0.4); EOSINOPHIL % 1.8 % (0.0-4.0); HEMATOCRIT 41.4 % (35.0-46.0); HEMOGLOBIN 13.3 GM/DL (11.6-15.3); LYMPH % 33.6 % (9.0-44.0); LYMPHOCYTE # 4.5 TH/MM3 (1.0-4.8); MEAN CELL VOLUME 87.4 FL (80.0-100.0); MEAN CORPUSCULAR HEMOGLOBIN 28.1 PG (27.0-34.0); MEAN CORPUSCULAR HGB CONC 32.1 % (32.0-36.0); MEAN PLATELET VOLUME 7.3 FL (7.0-11.0); MONO % 7.9 % (0.0-8.0); MONOCYTE # 1.1 TH/MM3 (0-0.9); PLATELET COUNT 364 TH/MM3 (150-450); RED BLOOD COUNT 4.74 MIL/MM3 (4.00-5.30); RED CELL DISTRIBUTION WIDTH 16.7 % (11.6-17.2); WHITE BLOOD COUNT 13.3 TH/MM3 (4.0-11.0)
[2017-04-10 08:00] VITALS: BP 116/54; PULSE 68; RESP 17; TEMP 97.2; O2SAT 97
[2017-04-10] MEDS: SODIUM CHLORIDE 0.9% FLUSH 10 ML FLUSH IV FLUSH SCH ×2 (09:00→21:00)
--- NOTE | 2017-04-10 09:18 | HHI.HP ---
[facility] Service Family Medicine Primary Care Physician Arsen Mejias MD Admission Diagnosis subclavian steal syndrome Diagnoses: (1) Subclavian steal syndrome Diagnosis: Principal (2) Leukocytosis Diagnosis: Principal (3) Autoimmune disorder Diagnosis: Principal (4) Anxiety Diagnosis: Principal (5) Nutrition, metabolism, and development symptoms Diagnosis: Principal International Travel<30 Days: No Contact w/Intl Traveler<30days: No Known Affected Area: No History of Present Illness Ms Bryant is a 56 year old woman with a medical history significant for polyarteritis nodosa with vasculitis, Raynaud's disease, rheumatoid arthritis, and DVT. She states she saw her student development specialist recently and then was referred to Dr. Pulido after an MRA of her chest and upper extremities performed sometime this past week showed a proximal subclavian artery occlusion and vertebral artery steal syndrome. She was then sent to the ED here for further evaluation. She reports her left 4th and 5th fingers about 2 weeks ago started to go completely numb. The ventral aspect of her left arm also went numb. States she went to her doctor this past Wednesday and they could not obtain a blood pressure reading of her left arm. She states she is not currently on any anticoagulants. States she was taking Lovenox for about 2 months about 4 years ago but stated she did not have insurance so she stopped administering these. She is currently taking 325 mg aspirin BID. She states for the past 2 weeks she has had left facial, shoulder, and arm pain and swelling. She denies a history of hepatitis. She had no insurance when she stopped her anticoagulant and now has insurance and is willing to take something prison. Her arm pain and numbness is improved today compared to admission. She has been on heparin and has no other complaints today except her meds were a little mixed up. The plan is to have a radiologic intervention on Wednesday. She still has no pulse in her left wrist compared to a normal pulse in her right wrist. Review of Systems Gastrointestinal: COMPLAINS OF: Abdominal pain (she has various daily sxs with her REESE), DENIES: Black stools, Bloody stools, Constipation, Diarrhea, Nausea, Vomiting, Difficulty Swallowing, Anorexia Other Constitutional: DENIES: Fever, Chills Eyes: DENIES: Blurred vision, Diplopia Respiratory: DENIES: Cough, Sputum production, Shortness of breath Cardiovascular: DENIES: Chest pain, Lower Extremity Edema Gastrointestinal: DENIES: Abdominal pain, Constipation, Diarrhea, Nausea, Vomiting Genitourinary: DENIES: Hematuria, Dysuria Past Family Social History Past Medical History REESE Raynaud's disease Left dropped foot Depression Anxiety RA DVT Past Surgical History Hysterectomy, D&C, tubal ligation Left orbital fracture and subsequent plate placement in 2008 Had gel breast implants status post removal x2 Pilonidal cyst removal Appendectomy Tonsillectomy Allergies: Coded Allergies: vancomycin (Unverified Allergy, Severe, Rash, 01/26/17) 12/24/16 Family History Mother with COPD Father: at age 56yo from P/E Grandmother with breast cancer at older age Social History Tobacco: 1 PPD since 18yo, still currently smoking Etoh: social occasions Illicit drug use: jen Lives at home with her mother Dr. Mejias is her student development specialist Physical Exam Vital Signs Vital Signs Date Time Temp Pulse Resp B/P (MAP) Pulse Ox O2 Delivery O2 Flow Rate FiO2 04/10/17 08:00 97.2 68 17 116/54 (74) 97 04/10/17 00:19 97.4 66 16 107/51 (69) 94 04/09/17 20:00 97.4 76 16 119/60 (79) 96 04/09/17 17:32 04/09/17 16:18 98 04/09/17 15:52 70 18 146/67 (93) 97 Room Air 04/09/17 12:43 98.6 58 20 132/63 (86) 98 Room Air 04/09/17 10:39 89 18 149/70 (96) 98 Room Air 04/09/17 10:19 99.3 81 13 139/66 (90) 99 Physical Exam GENERAL: NAD, lying comfortably in bed NEURO: Alert. Normal speech. mold maker plastic molds grossly intact. Unable to dorsiflex left foot. 4/5 strength left lower extremity. 5/5 strength RLE. SKIN: Warm and dry. No rashes or erythema. HEAD: Normocephalic. Atraumatic. EYES: EOMI. No scleral icterus. No injection or drainage. ENT: No nasal drainage. Moist mucous membranes. No oral ulcers or lesions. NECK: Supple, trachea midline. No JVD or lymphadenopathy. No carotid bruits. CARDIOVASCULAR: Regular rate and rhythm without murmurs, rubs, or gallops. Capillary refill < 2 seconds. DP pulses 2+ bilaterally. PT pulse 2+ on the right , faint on left. diminished radial pulses (palpable by Vascular but not me) on the left, normal on the right. RESPIRATORY: Breath sounds clear to auscultation and equal bilaterally, without wheezes, rales, or rhonchi. No accessory muscle use. GASTROINTESTINAL: Abdomen soft, nontender, nondistended, normal BS. No organomegaly or masses. No rebound tenderness. No guarding. MUSCULOSKELETAL: No lower extremity edema. Normal range of motion except left foot. minor joint deformities. well healed scar from area of nerve biopsy in her foot on the left BACK: Nontender without obvious deformity. Laboratory Laboratory Tests Test 04/09/17 10:40 04/09/17 12:41 04/09/17 21:54 04/10/17 03:59 White Blood Count 17.1 13.3 Red Blood Count 5.36 4.74 Hemoglobin 15.3 13.3 Hematocrit 46.9 41.4 Mean Corpuscular Volume 87.6 87.4 Mean Corpuscular Hemoglobin 28.5 28.1 Mean Corpuscular Hemoglobin Concent 32.6 32.1 Red Cell Distribution Width 16.5 16.7 Platelet Count 433 364 Mean Platelet Volume 7.6 7.3 Neutrophils (%) (Auto) 87.7 56.0 Lymphocytes (%) (Auto) 9.4 33.6 Monocytes (%) (Auto) 2.3 7.9 Eosinophils (%) (Auto) 0.2 1.8 Basophils (%) (Auto) 0.4 0.7 Neutrophils # (Auto) 15.0 7.5 Lymphocytes # (Auto) 1.6 4.5 Monocytes # (Auto) 0.4 1.1 Eosinophils # (Auto) 0.0 0.2 Basophils # (Auto) 0.1 0.1 CBC Comment DIFF FINAL DIFF FINAL Differential Comment Prothrombin Time 10.1 10.6 Prothromb Time International Ratio 0.9 1.0 Activated Partial Thromboplast Time 25.1 86.8 76.9 Blood Urea Nitrogen 17 Creatinine 1.01 Random Glucose 120 Calcium Level 9.6 Sodium Level 137 Potassium Level 4.1 Chloride Level 102 Carbon Dioxide Level 24.9 Anion Gap 10 Estimat Glomerular Filtration Rate 57 Urine Color LIGHT-YELLOW Urine Turbidity CLEAR Urine pH 6.0 Urine Specific Munson 1.004 Urine Protein NEG Urine Glucose (UA) NEG Urine Ketones NEG Urine Occult Blood TRACE Urine Nitrite NEG Urine Bilirubin NEG Urine Urobilinogen LESS THAN 2.0 Urine Leukocyte Esterase NEG Urine RBC LESS THAN 1 Microscopic Urinalysis Comment CULT NOT INDICATED Result Diagram: 04/10/17 0359 04/09/17 1040 Caprini VTE Risk Assessment Caprini VTE Risk Assessment: Mod/High Risk (score >= 2) Caprini Risk Assessment Model Point Value = 1 Point Value = 2 Point Value = 3 Point Value = 5 Age 41-60 Minor surgery BMI > 25 kg/m2 Swollen legs Varicose veins or History of unexplained or recurrent spontaneous Oral contraceptives or hormone replacement Sepsis (< 1 month) Serious lung disease, including pneumonia (< 1 month) Abnormal pulmonary function Acute myocardial infarction Congestive heart failure (< 1 month) History of inflammatory bowel disease Medical patient at bed rest Age 61-74 Arthroscopic surgery Major open surgery (> 45 min) Laparoscopic surgery (> 45 min) Malignancy Confined to bed (> 72 hours) Immobilizing plaster cast Central venous access Age >= 75 History of VTE Family history of VTE Factor V Leiden Prothrombin [id number] Lupus anticoagulant Anticardiolipin antibodies Elevated serum homocysteine Heparin-induced thrombocytopenia Other congenital or acquired thrombophilia Stroke (< 1 month) Elective arthroplasty Hip, pelvis, or leg fracture Acute spinal cord injury (< 1 month) Prophylaxis Regimen Total Risk Factor Score Risk Level Prophylaxis Regimen 0-1 Low Early ambulation 2 Moderate Order ONE of the following: *Sequential Compression Device (SCD) *Heparin 5000 units SQ BID 3-4 Higher Order ONE of the following medications: *Heparin 5000 units SQ TID *Enoxaparin/Lovenox 40 mg SQ daily (WT < 150 kg, CrCl > 30 mL/min) *Enoxaparin/Lovenox 30 mg SQ daily (WT < 150 kg, CrCl > 10-29 mL/min) *Enoxaparin/Lovenox 30 mg SQ BID (WT < 150 kg, CrCl > 30 mL/min) AND/OR *Sequential Compression Device (SCD) 5 or more Highest Order ONE of the following medications: *Heparin 5000 units SQ TID (Preferred with Epidurals) *Enoxaparin/Lovenox 40 mg SQ daily (WT < 150 kg, CrCl > 30 mL/min) *Enoxaparin/Lovenox 30 mg SQ daily (WT < 150 kg, CrCl > 10-29 mL/min) *Enoxaparin/Lovenox 30 mg SQ BID (WT < 150 kg, CrCl > 30 mL/min) AND *Sequential Compression Device (SCD) Assessment and Plan Assessment and Plan 56 year old female with medical history significant for polyarteritis nodosa, Raynaud's disease, rheumatoid arthritis, and DVT being admitted with subclavian artery stenosis. Patients follows with Dr. Mejias as her student development specialist as an outpatient. Problem List: (1) Subclavian steal syndrome ICD Codes: G45.8 - Other transient cerebral ischemic attacks and related syndromes Status: Acute Plan: - Patient started on a heparin drip per protocol - Vascular surgery consulted, Dr. Mcconnell, appreciate recommendations - Interventional radiology consulted, possible transbrachial recanalization of the subclavian artery to be scheduled for this Wednesday - Recent MRA of chest and upper extremities showing a proximal subclavian artery occlusion and vertebral artery steal syndrome - Lower extremity US negative for DVT - Address any modifiable cardiovascular risk factors with patient - Continue smoking cessation counseling with patient will ask Hematology for advice on prison anticoagulation as she has had DVTs in the past and is hypercoagulable. (2) Leukocytosis ICD Codes: D72.829 - Elevated white blood cell count, unspecified Status: Acute Plan: Consider a stress response Clinically appears without an acute infectious process Patient also on prednisone at home however this is chronic and a low dose UA clean Lungs ctab Continue to monitor (3) Autoimmune disorder ICD Codes: M35.9 - Systemic involvement of connective tissue, unspecified Status: Chronic Plan: Patient has an extensive rheumatological history, currently following with Dr. Mejias. Patient reporting a history of polyarteritis nodosa, rheumatoid arthritis, as well as Raynaud's disease Continue heparin drip for anticoagulation until endovascular intervention Would appreciate a hematology consult for recommendations on long-term anticoagulation and further workup if needed continue prednisone and Imuran (4) Anxiety ICD Codes: F41.9 - Anxiety disorder, unspecified Status: Chronic Plan: Continue home Xanax she is depressed as well and is on an SSRI normally (5) Nutrition, metabolism, and development symptoms ICD Codes: R63.8 - Other symptoms and signs concerning food and fluid intake Plan: Fluids: PO Electrolytes: WNL, continue to monitor Nutrition: Regular DVT prophylaxis: Heparin drip Problem Qualifiers (1) Leukocytosis: Qualified Codes: D72.823 - Leukemoid reaction Jeaneth Conklin MD Apr 10, 2017 09:18
[2017-04-10] MEDS: GABAPENTIN 400 MG CAP PO SCH ×2 (09:24→21:04)
[2017-04-10] MEDS: predniSONE 10 MG TAB PO SCH (09:24)
[2017-04-10] MEDS: DOCUSATE SODIUM 50 MG/SENNA 8.6 MG TAB PO SCH ×2 (09:24→21:00)
[2017-04-10] MEDS: PANTOPRAZOLE SOD 40 MG DELAYED RELEASE TAB PO SCH (09:24)
[2017-04-10] MEDS: HYDROmorphone HCL 2 MG TAB PO SCH ×2 (09:25→21:03)
[2017-04-10] MEDS: FLUoxetine HCL 20 MG CAP PO SCH ×2 (09:29→21:03)
[2017-04-10] MEDS: ALPRAZolam 0.5 MG TAB PO PRN ×2 (09:29→17:48)
[2017-04-10] MEDS: azaTHIOprine 50 MG TAB PO SCH ×2 (10:12→17:49)
[2017-04-10 12:00] VITALS: BP 106/54; PULSE 71; RESP 17; TEMP 97.3; O2SAT 93
--- NOTE | 2017-04-10 14:45 | MB ---
cc: CORNELIO LU M.D., SHARON M.D. DATE OF CONSULTATION: 04/10/[address] Conklin. REASON FOR CONSULTATION Hematology consulted to render an opinion regarding a patient with a history of arterial clot and to recommend anticoagulation. HISTORY OF PRESENT ILLNESS The patient is a 56-year-old female with a complicated medical history with polyarteritis nodosa, Raynaud's disease, rheumatoid arthritis who presented to the emergency room with a complaint of left arm numbness and pain for at least two weeks. She saw Dr. Mejias and referred to see Dr. Pulido. However, she was directed to the emergency room because her MRA showed occlusion of proximal subclavian artery with vertebral artery steal syndrome. She has a history of a left axillary and ulnar artery thrombosis with emboli to the left fingers in 2013. At that time, she was seen by Dr. Jean and she was put on Lovenox. However, she was only on it for two months and stopped because she has no insurance. She then went on full dose aspirin since then. She denies any fever, chills or night sweats. She has no chest pain, shortness of breath or cough. Denies any nausea, vomiting, diarrhea or abdominal pain. Denies any dysuria or hematuria. PAST MEDICAL HISTORY 1. Polyarteritis nodosa. 2. Raynaud's syndrome. 3. Rheumatoid arthritis. 4. Left footdrop. 5. Depression and anxiety. 6. Tobacco dependence. 7. Thrombosis of the left axillary and ulnar artery with emboli to the fingers. PAST SURGICAL HISTORY 1. Hysterectomy. 2. D&C. 3. Bilateral tubal ligation. 4. Left orbital fracture repair. 5. Breast implant and subsequent removal. 6. Excision of pilonidal cyst. 7. Appendectomy. 8. Tonsillectomy. FAMILY HISTORY Father had pulmonary embolism, one brother is healthy. He has four children all healthy. SOCIAL HISTORY Smoked a pack a day since age 18. Drinks occasionally. Lives with her mother. ALLERGIES VANCOMYCIN. CURRENT MEDICATIONS 1. Gabapentin. 2. Folic acid. 3. Prednisone. 4. Imuran. 5. Protonix. 6. Prozac. 7. Kat-Colace. 8. Dilaudid. REVIEW OF SYSTEMS CONSTITUTIONAL: As above. EYES: Negative. ENT: Negative. CARDIOVASCULAR: Denies any chest pressure or palpitation. RESPIRATORY: Denies shortness of breath or cough. GASTROINTESTINAL: Negative. GENITOURINARY: Negative. MUSCULOSKELETAL: As above. HEMATOLOGIC: As above. ENDOCRINE: Negative. DERMATOLOGIC: Negative. PSYCHIATRIC: Anxiety. NEUROLOGIC: Negative. PHYSICAL EXAMINATION VITAL SIGNS: Temperature 97.2, blood pressure 116/54, O2 saturation 97%. GENERAL: She is alert, oriented x3, in no acute distress, a little anxious. HEENT: Atraumatic, normocephalic. Pupils equal, round and reactive to light. Extraocular muscles intact. No scleral icterus. Oropharynx - dry mucosa, no lesion. NECK: No thyromegaly. No palpable mass. LYMPHATICS: No palpable cervical, clavicular, axillary or inguinal lymph nodes. CARDIOVASCULAR: Regular S1 and S2. No murmur. LUNGS: Clear to auscultation bilaterally. No wheezing or rhonchi. ABDOMEN: Soft, nontender. I could not palpate liver or spleen. EXTREMITIES: No cyanosis or clubbing. No significant edema. She is a little tender in the left knee area. I could not really palpate the left radial pulse. LABORATORY DATA Laboratory data reviewed. ASSESSMENT 1. Proximal subclavian artery occlusion with vertebral artery steal syndrome. She presented with left arm numbness and pain. She has a history of left axillary and ulnar thrombosis with emboli to the fingers in 2013. At that time, she was started on Lovenox but she only stayed on it for two months and stop because she could not afford it. She has been on aspirin since that time. She now presented with subclavian artery occlusion. She has hypercoagulable state due to underlying autoimmune vasculitis. I think she needs to be on long-term anticoagulation. She was started on heparin and her symptoms are stable. She is going to have endovascular intervention on Wednesday. After the surgery, I would recommend starting her on anticoagulation. We discussed Coumadin versus a newer class of anticoagulation agent. She does not want Coumadin but she agreed to try one of the newer anticoagulation agents. She may also need to be on antiplatelet agent like an aspirin due to her recurrent arterial clot. I will have Dr. Jean follow her on Wednesday. I have discuss with the patient and her mother. Their questions were answered. 2. Rheumatoid arthritis, polyarteritis nodosa and Raynaud's syndrome. Currently followed by Dr. Mejias. 3. Chronic footdrop. 4. Depression and anxiety. RECOMMENDATIONS 1. Continue heparin for now. 2. Await endovascular intervention on Wednesday. 3. Can bridge to oral anticoagulation when she is done with all of the procedures. 4. She may also need to stay on antiplatelet agent like Baby Aspirin. 5. Dr. Jean to see her on Wednesday. Thank you Dr. Conklin for asking us see this patient. MD RYAN Stern/BJF /11:40 AM /2:04 PM MTDD
[2017-04-10 16:00] VITALS: BP 101/42; PULSE 71; RESP 17; TEMP 97.4; O2SAT 96
[2017-04-10] MEDS: HEPARIN-D5W 25,000 U/250 ML 250 ML IV PRN (16:00)
[2017-04-10] MEDS: HYDROmorphone HCL PF 1 MG/ML VIAL IV PUSH PRN (17:49)
[2017-04-10 20:00] VITALS: BP 112/55; PULSE 72; RESP 18; TEMP 97.8; O2SAT 95
[2017-04-10 20:36] LABS: ALT (GPT) 27 U/L (10-53)
[2017-04-10 20:38] LABS: ALKALINE PHOSPHATASE 88 U/L (45-117); TOTAL BILIRUBIN ADULT 0.3 MG/DL (0.2-1.0); TOTAL PROTEIN 6.5 GM/DL (6.4-8.2)
[2017-04-10] MEDS: FOLIC ACID 1 MG TAB PO SCH (21:04)
[2017-04-10 21:28] LABS: ALBUMIN 3.3 GM/DL (3.4-5.0); AST (GOT) 22 U/L (15-37); BICARBONATE 27.3 MEQ/L (21.0-32.0); BLOOD UREA NITROGEN 18 MG/DL (7-18); CALCIUM 9.3 MG/DL (8.5-10.1); CHLORIDE 102 MEQ/L (98-107); CREATININE 0.97 MG/DL (0.50-1.00); GLOMERULAR FILTRATION RATE 60 ML/MIN (>89); GLUCOSE,RANDOM 119 MG/DL (74-106); SODIUM (NA) 139 MEQ/L (136-145)
[2017-04-10] MEDS: LORazepam 1 MG TAB PO PRN (21:28)
[2017-04-10 21:34] VITALS: O2SAT 96
[2017-04-11] VITALS (7 sets, daily range): BP systolic 92–126; BP diastolic 47–62; PULSE 72–88; RESP 14–18; TEMP 96.7–98.7; O2SAT 94–97
[2017-04-11] MEDS: HYDROmorphone HCL PF 1 MG/ML VIAL IV PUSH PRN ×2 (01:50→14:36)
[2017-04-11] MEDS: azaTHIOprine 50 MG TAB PO SCH ×2 (05:40→17:58)
[2017-04-11 06:35] LABS: AUTOMATED NEUTROPHIL # 9.9 TH/MM3 (1.8-7.7); BASOPHIL # 0.1 TH/MM3 (0-0.2); BASOPHIL % 0.5 % (0.0-2.0); EOSINOPHIL # 0.3 TH/MM3 (0-0.4); EOSINOPHIL % 2.2 % (0.0-4.0); HEMATOCRIT 41.5 % (35.0-46.0); HEMOGLOBIN 13.6 GM/DL (11.6-15.3); LYMPH % 29.9 % (9.0-44.0); LYMPHOCYTE # 4.8 TH/MM3 (1.0-4.8); MEAN CELL VOLUME 88.3 FL (80.0-100.0); MEAN CORPUSCULAR HGB CONC 32.8 % (32.0-36.0); MEAN PLATELET VOLUME 7.8 FL (7.0-11.0); MONO % 6.1 % (0.0-8.0); NEUT % 61.3 % (16.0-70.0); PLATELET COUNT 365 TH/MM3 (150-450); RED CELL DISTRIBUTION WIDTH 16.7 % (11.6-17.2); WHITE BLOOD COUNT 16.1 TH/MM3 (4.0-11.0)
[2017-04-11] MEDS: DOCUSATE SODIUM 50 MG/SENNA 8.6 MG TAB PO SCH ×2 (09:15→20:53)
[2017-04-11] MEDS: FLUoxetine HCL 20 MG CAP PO SCH ×2 (09:15→20:54)
[2017-04-11] MEDS: predniSONE 10 MG TAB PO SCH (09:16)
[2017-04-11] MEDS: HYDROmorphone HCL 2 MG TAB PO SCH ×2 (09:16→20:53)
[2017-04-11] MEDS: GABAPENTIN 400 MG CAP PO SCH ×2 (09:16→20:54)
[2017-04-11] MEDS: PANTOPRAZOLE SOD 40 MG DELAYED RELEASE TAB PO SCH (09:16)
[2017-04-11] MEDS: ALPRAZolam 0.5 MG TAB PO PRN ×2 (09:27→17:58)
[2017-04-11 09:50] LABS: HEMOGLOBIN A1C 6.3 % (4.3-6.0)
--- NOTE | 2017-04-11 10:23 | HHI.FPPN ---
Subjective Remarks No acute events overnight. Afebrile, vitals stable. Patient this morning complains of feeling very tired. She states she slept in bed almost all day yesterday. She denies fevers or chills, CP, SOB, cough, new or worsening left sided pain or weakness. She states she has had no other motor deficit or focal neuro deficit to report. Tolerating diet well. She states her pain overall is relatively well controlled. (Kristian Fraser MD R2) Objective Vitals Vital Signs Date Time Temp Pulse Resp B/P (MAP) Pulse Ox O2 Delivery O2 Flow Rate FiO2 04/11/17 08:00 98.4 87 17 109/53 (71) 97 04/11/17 00:00 96.7 88 18 114/62 (79) 95 04/10/17 21:34 96 04/10/17 20:00 97.8 72 18 112/55 (74) 95 04/10/17 16:00 97.4 71 17 101/42 (61) 96 04/10/17 12:00 97.3 71 17 106/54 (71) 93 I/O 04/10/17 04/10/17 04/10/17 04/11/17 04/11/17 04/11/17 07:00 15:00 23:00 07:00 15:00 23:00 Intake Total 136 ml 114 ml 720 ml 240 ml Balance 136 ml 114 ml 720 ml 240 ml Intake Oral 720 ml 240 ml IV Total 136 ml 114 ml # Voids 0 3 3 # Bowel Movements 1 0 (Kristian Fraser MD R2) Result Diagram: 04/11/17 0539 04/10/17 1853 Objective Remarks GENERAL: NAD, lying comfortably in bed NEURO: Alert. Normal speech. news reporter grossly intact. Unable to dorsiflex left foot. 4/5 strength left lower extremity. 5/5 strength RLE. SKIN: Warm and dry. No rashes or erythema. HEAD: Normocephalic. Atraumatic. EYES: EOMI. No scleral icterus. No injection or drainage. ENT: No nasal drainage. Moist mucous membranes. No oral ulcers or lesions. NECK: Supple, trachea midline. No JVD or lymphadenopathy. No carotid bruits. CARDIOVASCULAR: Regular rate and rhythm without murmurs, rubs, or gallops. Capillary refill < 2 seconds. DP pulses 2+ bilaterally. PT pulse 2+ on the right , faint on left. Brachial pulses palpable bilaterally as well as bilateral radial pulses. RESPIRATORY: Breath sounds clear to auscultation and equal bilaterally, without wheezes, rales, or rhonchi. No accessory muscle use. GASTROINTESTINAL: Abdomen soft, nontender, nondistended, normal BS. No organomegaly or masses. No rebound tenderness. No guarding. MUSCULOSKELETAL: No lower extremity edema. Normal range of motion. BACK: Nontender without obvious deformity. (Kristian Fraser MD R2) A/P Assessment and Plan 56 year old female with medical history significant for polyarteritis nodosa, Raynaud's disease, rheumatoid arthritis, and DVT admitted with subclavian artery stenosis. Patients follows with Dr. Mejias as her registered medical assistant as an outpatient. (Kristian Fraser MD R2) Attending Attestation Patient seen and examined. Case reviewed and discussed with the resident team. Agree with plan of care as discussed with me and documented in the resident note. she may be getting some "catch up sleep" as her mother advised me that she had not slept well for days because of the pain and discomfort in her arm prior to coming into the hospital. Now that she is more comfortable, she may be able to finally relax. When she wakes up she is fine and conversant. (Jeaneth Conklin MD) Problem List: (1) Subclavian steal syndrome ICD Codes: G45.8 - Other transient cerebral ischemic attacks and related syndromes Status: Acute Plan: - Continue heparin drip per protocol - Vascular surgery consulted, Dr. Mcconnell, appreciate recommendations - Interventional radiology consulted, possible transbrachial recanalization of the subclavian artery to be scheduled for this Wednesday - Hematology oncology consulted, recommending continue heparin for now and awaiting endovascular intervention on Wednesday and bridging to oral anticoagulation following the procedure, as well as staying on antiplatelet therapy - Recent MRA of chest and upper extremities showing a proximal subclavian artery occlusion and vertebral artery steal syndrome - Lower extremity US negative for DVT - Address any modifiable cardiovascular risk factors with patient - Continue smoking cessation counseling with patient (2) Leukocytosis ICD Codes: D72.829 - Elevated white blood cell count, unspecified Status: Acute Plan: Consider a stress response Clinically appears without an acute infectious process Patient also on prednisone at home however this is chronic and a low dose UA clean Lungs remaining ctab Continue to monitor (3) Autoimmune disorder ICD Codes: M35.9 - Systemic involvement of connective tissue, unspecified Status: Chronic Plan: Patient has an extensive rheumatological history, currently following with Dr. Mejias. Patient reporting a history of polyarteritis nodosa, rheumatoid arthritis, as well as Raynaud's disease Continue heparin drip for anticoagulation until endovascular intervention Hematology consulted, appreciate recommendations Continue prednisone and Imuran (4) Anxiety ICD Codes: F41.9 - Anxiety disorder, unspecified Status: Chronic Plan: Continue home Xanax She is depressed as well and is on an SSRI normally (5) Nutrition, metabolism, and development symptoms ICD Codes: R63.8 - Other symptoms and signs concerning food and fluid intake Plan: Fluids: PO Electrolytes: WNL, continue to monitor Nutrition: Regular DVT prophylaxis: Heparin drip GI ppx: Protonix 40 mg po daily PT for activity (Kristian Fraser MD R2) Problem Qualifiers (1) Leukocytosis: Qualified Codes: D72.823 - Leukemoid reaction Kristian Fraser MD R2 Apr 11, 2017 10:23 Jeaneth Conklin MD Apr 11, 2017 13:27
--- NOTE | 2017-04-11 11:52 | PD.ONC.PN ---
Subjective Subjective Remarks Afebrile overnight. Patient resting in room. She is anxious and reporting pain in left shoulder and "all over." No bleeding. Objective Data Date Time Temp Pulse Resp B/P (MAP) Pulse Ox O2 Delivery O2 Flow Rate FiO2 04/11/17 08:00 98.4 87 17 109/53 (71) 97 04/11/17 00:00 96.7 88 18 114/62 (79) 95 04/10/17 21:34 96 04/10/17 20:00 97.8 72 18 112/55 (74) 95 04/10/17 16:00 97.4 71 17 101/42 (61) 96 04/10/17 12:00 97.3 71 17 106/54 (71) 93 04/11/17 04/11/17 04/11/17 07:00 15:00 23:00 Intake Total 240 ml Balance 240 ml Result Diagram: 04/11/17 0539 04/10/17 1853 Laboratory Results Laboratory Tests Test 04/10/17 12:00 04/10/17 18:53 04/11/17 01:33 04/11/17 05:39 Activated Partial Thromboplast Time 29.5 SEC 44.6 SEC 44.5 SEC 49.7 SEC Blood Urea Nitrogen 18 MG/DL Creatinine 0.97 MG/DL Random Glucose 119 MG/DL Total Protein 6.5 GM/DL Albumin 3.3 GM/DL Calcium Level 9.3 MG/DL Alkaline Phosphatase 88 U/L Aspartate Amino Transf (AST/SGOT) 22 U/L Alanine Aminotransferase (ALT/SGPT) 27 U/L Total Bilirubin 0.3 MG/DL Sodium Level 139 MEQ/L Potassium Level 4.4 MEQ/L Chloride Level 102 MEQ/L Carbon Dioxide Level 27.3 MEQ/L Anion Gap 10 MEQ/L Estimat Glomerular Filtration Rate 60 ML/MIN White Blood Count 16.1 TH/MM3 Red Blood Count 4.70 MIL/MM3 Hemoglobin 13.6 GM/DL Hematocrit 41.5 % Mean Corpuscular Volume 88.3 FL Mean Corpuscular Hemoglobin 29.0 PG Mean Corpuscular Hemoglobin Concent 32.8 % Red Cell Distribution Width 16.7 % Platelet Count 365 TH/MM3 Mean Platelet Volume 7.8 FL Neutrophils (%) (Auto) 61.3 % Lymphocytes (%) (Auto) 29.9 % Monocytes (%) (Auto) 6.1 % Eosinophils (%) (Auto) 2.2 % Basophils (%) (Auto) 0.5 % Neutrophils # (Auto) 9.9 TH/MM3 Lymphocytes # (Auto) 4.8 TH/MM3 Monocytes # (Auto) 1.0 TH/MM3 Eosinophils # (Auto) 0.3 TH/MM3 Basophils # (Auto) 0.1 TH/MM3 CBC Comment DIFF FINAL Differential Comment Culture Results Microbiology Date/Time Source Procedure Growth Status 04/10/17 18:00 Stool Stool Stool Occult Blood (CARYN) - Final HEMOCCULT NEGATIVE Complete Administered Medications Medications (Trade) Dose Ordered Sig/Ayaz Route PRN Reason Start Time Stop Time Status Last Admin Dose Admin Alprazolam (Xanax) 0.5 mg BID PRN PO ANXIETY 04/09/17 15:15 04/11/17 09:27 Fluoxetine HCl (PROzac) 20 mg BID PO 04/09/17 21:00 04/11/17 09:15 Prednisone (Deltasone) 10 mg DAILY PO 04/10/17 09:00 04/11/17 09:16 Sodium Chloride (NS Flush) 2 ml BID IV FLUSH 04/09/17 21:00 04/09/17 20:34 Senna/Docusate Sodium (Kat-Colace) 1 tab BID PO 04/09/17 21:00 04/11/17 09:15 Hydromorphone HCl (Dilaudid) 2 mg BID PO 04/09/17 17:00 04/11/17 09:16 Hydromorphone HCl (Dilaudid Pf Inj) 1 mg Q4H PRN IV PUSH BREAKTHROUGH PAIN 04/09/17 16:00 04/11/17 01:50 Lorazepam (Ativan) 1 mg ONCE PRN PO INSOMNIA 04/09/17 20:00 04/12/17 19:59 04/10/17 21:28 Heparin Sodium/ Dextrose 250 ml @ 14 mls/hr TITRATE PRN IV Coagulation management 04/09/17 16:15 04/10/17 16:00 Azathioprine (Imuran) 50 mg BID@,18 PO 04/10/17 09:00 04/11/17 05:40 Folic Acid (Folate) 1 mg DAILY@1999 PO 04/10/17 20:00 04/10/17 21:04 Pantoprazole Sodium (Protonix) 40 mg DAILY PO 04/10/17 09:00 04/11/17 09:16 Gabapentin (Neurontin) 800 mg BID PO 04/10/17 21:00 04/11/17 09:16 Objective Remarks GENERAL: Middle aged female supine in bed resting. SKIN: Warm and dry. HEAD: Normocephalic. EYES: No injection or drainage. NECK: Supple, trachea midline. CARDIOVASCULAR: Regular rate and rhythm RESPIRATORY: Breath sounds equal bilaterally. No accessory muscle use. GASTROINTESTINAL: Abdomen soft, non-tender, nondistended. EXTREMITIES: No cyanosis. peripheral extremities warm and well perfused. NEUROLOGICAL: awake and alert, normal speech. Assessment/Plan Problem List: (1) Subclavian steal syndrome ICD Codes: G45.8 - Other transient cerebral ischemic attacks and related syndromes Status: Acute Plan: --Proximal subclavian artery occlusion with vertebral artery steal syndrome. --presented with left arm numbness and pain. 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 At that time, she was started on Lovenox but she only stayed on it for two months and stop because she could not afford it. --has been on aspirin since that time. --now presented with subclavian artery occlusion. 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 --needs to be on long-term anticoagulation. --is going to have endovascular intervention on Wednesday. -- After the surgery, would recommend starting her on anticoagulation. discussed Coumadin versus a newer class of anticoagulation agent. She does not want Coumadin -- agreed to try one of the newer anticoagulation agents. --may also need to be on antiplatelet agent like an aspirin due to her recurrent arterial clot. --Dr. Jean to follow her on Wednesday. Assessment 56-year-old female with a complicated medical history with polyarteritis nodosa , Raynaud's disease, rheumatoid arthritis who presented to the emergency room with a complaint of left arm numbness and pain for at least two weeks. She saw Dr. Mejias and referred to see Dr. Pulido. However, she was directed to the emergency room because her MRA showed occlusion of proximal subclavian artery with vertebral artery steal syndrome. She has a history of a left axillary and ulnar artery thrombosis with emboli to the left fingers in 2013. At that time, she was seen by Dr. Jean and she was put on Lovenox. However, she was only on it for two months and stopped because she has no insurance. She then went on full dose aspirin since then. history of Polyarteritis nodosa. Raynaud's syndrome. Rheumatoid arthritis. Left footdrop. Depression and anxiety. Tobacco dependence. Thrombosis of the left axillary and ulnar artery with emboli to the fingers. Plan 1. await endovascular intervention Wednesday 2. continue heparin gtt Attending Statement The exam, history, and the medical decision-making described in the above note were completed with the assistance of the mid-level provider. I reviewed and agree with the findings presented. I attest that I had a [id number] encounter with the patient on the same day, and personally performed and documented my assessment and findings in the medical record. Left arm pain controlled. No significant edema. No bleeding. Continue heparin gtt. Await endovascular intervention tomorrow. Can bridge to NOAC once she is done with the procedure. Rosalinda Beauchamp Apr 11, 2017 11:52 Brandon Farrell MD Apr 11, 2017 15:49
[2017-04-11 14:54] LABS: BICARBONATE 26.6 MEQ/L (21.0-32.0); CALCIUM 9.4 MG/DL (8.5-10.1); CREATININE 1.09 MG/DL (0.50-1.00)
[2017-04-11 14:57] LABS: CHOLESTEROL/ HDL RATIO 2.88 RATIO; HDL CHOLESTEROL 97.1 MG/DL (40.0-60.0)
[2017-04-11] MEDS: HEPARIN-D5W 25,000 U/250 ML 250 ML IV PRN (15:22)
[2017-04-11] MEDS: SODIUM CHLORIDE 0.9% FLUSH 10 ML FLUSH IV FLUSH SCH ×2 (15:25→20:53)
[2017-04-11] MEDS: LORazepam 1 MG TAB PO PRN (20:53)
[2017-04-11] MEDS: FOLIC ACID 1 MG TAB PO SCH (20:53)
[2017-04-12] VITALS (10 sets, daily range): BP systolic 111–158; BP diastolic 55–72; PULSE 57–70; RESP 16–20; TEMP 96.5–98.5; O2SAT 92–98
[2017-04-12] MEDS: azaTHIOprine 50 MG TAB PO SCH ×2 (04:36→17:33)
[2017-04-12] MEDS: GABAPENTIN 400 MG CAP PO SCH ×2 (08:24→20:48)
[2017-04-12] MEDS: FLUoxetine HCL 20 MG CAP PO SCH ×2 (08:24→20:49)
[2017-04-12] MEDS: DOCUSATE SODIUM 50 MG/SENNA 8.6 MG TAB PO SCH ×2 (08:25→20:48)
[2017-04-12] MEDS: HYDROmorphone HCL 2 MG TAB PO SCH ×2 (08:26→20:47)
[2017-04-12] MEDS: SODIUM CHLORIDE 0.9% FLUSH 10 ML FLUSH IV FLUSH SCH ×2 (08:26→20:47)
[2017-04-12] MEDS: PANTOPRAZOLE SOD 40 MG DELAYED RELEASE TAB PO SCH (08:26)
[2017-04-12] MEDS: predniSONE 10 MG TAB PO SCH (08:26)
[2017-04-12] MEDS: ALPRAZolam 0.5 MG TAB PO PRN ×2 (08:29→20:54)
--- NOTE | 2017-04-12 10:25 | PD.ONC.PN ---
Subjective Subjective Remarks Afebrile overnight. Patient resting in bed in nad. No complaints. Waiting to go down for endovascular procedure. Objective Data Date Time Temp Pulse Resp B/P (MAP) Pulse Ox O2 Delivery O2 Flow Rate FiO2 04/12/17 08:00 96.9 58 18 111/69 (83) 98 04/11/17 23:52 97.2 85 18 118/54 (75) 94 04/11/17 20:21 97.6 72 18 126/60 (82) 96 04/11/17 16:41 96 21 04/11/17 16:00 98.7 84 14 92/58 (69) 96 04/11/17 12:00 98.1 78 18 106/47 (66) 96 04/12/17 04/12/17 04/12/17 07:00 15:00 23:00 Intake Total 666 ml 0 ml Balance 666 ml 0 ml Result Diagram: 04/11/17 0539 04/11/17 1427 Laboratory Results Laboratory Tests Test 04/11/17 14:27 04/12/17 04:36 Blood Urea Nitrogen 11 MG/DL Creatinine 1.09 MG/DL Random Glucose 140 MG/DL Calcium Level 9.4 MG/DL Sodium Level 140 MEQ/L Potassium Level 4.3 MEQ/L Chloride Level 105 MEQ/L Carbon Dioxide Level 26.6 MEQ/L Anion Gap 8 MEQ/L Estimat Glomerular Filtration Rate 52 ML/MIN Triglycerides Level 158 MG/DL Cholesterol Level 280 MG/DL LDL Cholesterol 151 MG/DL HDL Cholesterol 97.1 MG/DL Cholesterol/HDL Ratio 2.88 RATIO Activated Partial Thromboplast Time 51.3 SEC Culture Results Microbiology Date/Time Source Procedure Growth Status 04/12/17 07:10 Stool Stool Stool Occult Blood (CARYN) Pending Received 04/10/17 18:00 Stool Stool Stool Occult Blood (CARYN) - Final HEMOCCULT NEGATIVE Complete Administered Medications Medications (Trade) Dose Ordered Sig/Ayaz Route PRN Reason Start Time Stop Time Status Last Admin Dose Admin Alprazolam (Xanax) 0.5 mg BID PRN PO ANXIETY 04/09/17 15:15 04/12/17 08:29 Fluoxetine HCl (PROzac) 20 mg BID PO 04/09/17 21:00 04/12/17 08:24 Prednisone (Deltasone) 10 mg DAILY PO 04/10/17 09:00 04/12/17 08:26 Sodium Chloride (NS Flush) 2 ml BID IV FLUSH 04/09/17 21:00 04/12/17 08:26 Senna/Docusate Sodium (Kat-Colace) 1 tab BID PO 04/09/17 21:00 04/12/17 08:25 Hydromorphone HCl (Dilaudid) 2 mg BID PO 04/09/17 17:00 04/12/17 08:26 Hydromorphone HCl (Dilaudid Pf Inj) 1 mg Q4H PRN IV PUSH BREAKTHROUGH PAIN 04/09/17 16:00 04/11/17 14:36 Lorazepam (Ativan) 1 mg ONCE PRN PO INSOMNIA 04/09/17 20:00 04/12/17 19:59 04/11/17 20:53 Heparin Sodium/ Dextrose 250 ml @ 14 mls/hr TITRATE PRN IV Coagulation management 04/09/17 16:15 04/11/17 15:22 Azathioprine (Imuran) 50 mg BID@06,18 PO 04/10/17 09:00 04/12/17 04:36 Folic Acid (Folate) 1 mg DAILY@2000 PO 04/10/17 20:00 04/11/17 20:53 Pantoprazole Sodium (Protonix) 40 mg DAILY PO 04/10/17 09:00 04/12/17 08:26 Gabapentin (Neurontin) 800 mg BID PO 04/10/17 21:00 04/12/17 08:24 Objective Remarks GENERAL: Middle aged female lying in bed in [facility]. SKIN: Warm and dry. HEAD: Normocephalic. EYES: No injection or drainage. NECK: Supple, trachea midline. CARDIOVASCULAR: +S1/S2 RESPIRATORY: Breath sounds equal bilaterally. No accessory muscle use. GASTROINTESTINAL: Abdomen soft, non-tender, nondistended. EXTREMITIES: No cyanosis. peripheral extremities warm and well perfused. NEUROLOGICAL: awake and alert, normal speech. Assessment/Plan Problem List: (1) Subclavian steal syndrome ICD Codes: G45.8 - Other transient cerebral ischemic attacks and related syndromes Status: Acute Plan: --Proximal subclavian artery occlusion with vertebral artery steal syndrome. --presented with left arm numbness and pain. 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 At that time, she was started on Lovenox but she only stayed on it for two months and stop because she could not afford it. --has been on aspirin since that time. --now presented with subclavian artery occlusion. 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 --needs to be on long-term anticoagulation. --is going to have endovascular intervention on Wednesday. -- After the surgery, would recommend starting her on anticoagulation. discussed Coumadin versus a newer class of anticoagulation agent. She does not want Coumadin -- agreed to try one of the newer anticoagulation agents. --may also need to be on antiplatelet agent like an aspirin due to her recurrent arterial clot. --Dr. Jean to follow her on Wednesday. Assessment 56-year-old female with a complicated medical history with polyarteritis nodosa , Raynaud's disease, rheumatoid arthritis who presented to the emergency room with a complaint of left arm numbness and pain for at least two weeks. She saw Dr. Mejias and referred to see Dr. Pulido. However, she was directed to the emergency room because her MRA showed occlusion of proximal subclavian artery with vertebral artery steal syndrome. She has a history of a left axillary and ulnar artery thrombosis with emboli to the left fingers in 2013. At that time, she was seen by Dr. Jean and she was put on Lovenox. However, she was only on it for two months and stopped because she has no insurance. She then went on full dose aspirin since then. history of Polyarteritis nodosa. Raynaud's syndrome. Rheumatoid arthritis. Left footdrop. Depression and anxiety. Tobacco dependence. Thrombosis of the left axillary and ulnar artery with emboli to the fingers. Plan 1. await endovascular intervention today 2. continue heparin gtt Attending Statement The exam, history, and the medical decision-making described in the above note were completed with the assistance of the mid-level provider. I reviewed and agree with the findings presented. I attest that I had a [id number] encounter with the patient on the same day, and personally performed and documented my assessment and findings in the medical record. Pt seen and examined. Evaluation by vascular surgery and IR noted. No intervention can be offered risk> benefit. Pulse palpable over L radius. Moves left hand, no mottling. L foot drop no change, painful ganglion cyst and L thigh lipoma. Feels hand improved with UFH. Discussed risks and benefits of LMWH vs. NOACs. LMWH have additional benefit to affect clot bound thrombin and induce anti inflammatory effect. Furthermore, Lovenox had been effective before. Start Lovenox tonight, ICE to R groin, no hematoma noted. OK to DC home with [facility]. We will reassess efficacy of LMWH on clinical grounds. Rosalinda Beauchamp Apr 12, 2017 10:25 Yi Jean MD Apr 12, 2017 19:38
--- NOTE | 2017-04-12 10:53 | HHI.FPPN ---
Subjective Remarks Vitals wnl. Feeling very fatigued. Concerned about having low blood pressures and low heart rate, seems to be anxious. No acute complaints. Discussed the benefits of statin use, especially relating to patient's hypercoagulable state secondary to autoimmune disease. Patient refuses to use - states she is having considerable muscle wasting and does not want to risk more problems for her health. (Phyllis Jacobs MD R1) Objective Vitals Vital Signs Date Time Temp Pulse Resp B/P (MAP) Pulse Ox O2 Delivery O2 Flow Rate FiO2 04/12/17 08:00 96.9 58 18 111/69 (83) 98 04/11/17 23:52 97.2 85 18 118/54 (75) 94 04/11/17 20:21 97.6 72 18 126/60 (82) 96 04/11/17 16:41 96 21 04/11/17 16:00 98.7 84 14 92/58 (69) 96 04/11/17 12:00 98.1 78 18 106/47 (66) 96 I/O 04/11/17 04/11/17 04/11/17 04/12/17 04/12/17 04/12/17 07:00 15:00 23:00 07:00 15:00 23:00 Intake Total 240 ml 1800 ml 666 ml 0 ml Balance 240 ml 1800 ml 666 ml 0 ml Intake Oral 240 ml 1800 ml 580 ml 0 ml IV Total 86 ml # Voids 3 4 3 # Bowel Movements 0 0 (Phyllis Jacobs MD R1) Result Diagram: 04/11/17 0539 04/11/17 1427 Objective Remarks GENERAL: Anxious appearing woman appearing older for her age w/prasad facies laying quietly in bed. NEURO: Alert. Normal speech. No focal deficits. SKIN: Warm and dry. No rashes or erythema. HEAD: Normocephalic. Atraumatic. EYES: EOMI. No scleral icterus. No injection or drainage. ENT: No nasal drainage. Moist mucous membranes, without teeth. NECK: Supple, trachea midline. CARDIOVASCULAR: Regular rate and rhythm without murmurs, rubs, or gallops. RESPIRATORY: Breath sounds clear to auscultation and equal bilaterally, without wheezes, rales, or rhonchi. GASTROINTESTINAL: Abdomen soft, nontender, nondistended, normal BS. MUSCULOSKELETAL: No lower extremity edema. Normal range of motion. (Phyllis Jacobs MD R1) A/P Assessment and Plan 56 year old female with medical history significant for polyarteritis nodosa, Raynaud's disease, rheumatoid arthritis, and DVT admitted with subclavian artery stenosis. Patients follows with Dr. Mejias as her director financial systems as an outpatient. IR consulted, patient to undergo procedure today. Will discuss long-term anticoagulation afterwards, appreciate heme/onc recommendations (Phyllis Jacobs MD R1) Attending Attestation Patient seen and examined. Case reviewed and discussed with the resident team. Agree with plan of care as discussed with me and documented in the resident note. she continues to improve and will hopefully get better blood flow to her left arm after her procedure today. Will be on oral anticoagulants after the procedure when it is safe to start (Jeaneth Conklin MD) Problem List: (1) Subclavian steal syndrome ICD Codes: G45.8 - Other transient cerebral ischemic attacks and related syndromes Status: Acute Plan: - Continue heparin drip per protocol - Vascular surgery consulted, Dr. Mcconnell, appreciate recommendations - Interventional radiology consulted, possible transbrachial recanalization of the subclavian artery to be performed today - Hematology oncology consulted, recommending continue heparin for now and awaiting endovascular intervention today and bridging to oral anticoagulation following the procedure, as well as staying on antiplatelet therapy - Patient refuses to use statin because of fears of muscle wasting - Recent MRA of chest and upper extremities showing a proximal subclavian artery occlusion and vertebral artery steal syndrome - Lower extremity US negative for DVT - Address any modifiable cardiovascular risk factors with patient - Continue smoking cessation counseling with patient (2) Leukocytosis ICD Codes: D72.829 - Elevated white blood cell count, unspecified Status: Acute Plan: Consider a stress response Clinically appears without an acute infectious process Patient also on prednisone at home however this is chronic and a low dose Lungs remaining ctab Continue to monitor (3) Autoimmune disorder ICD Codes: M35.9 - Systemic involvement of connective tissue, unspecified Status: Chronic Plan: Patient has an extensive rheumatological history, currently following with Dr. Mejias. Patient reporting a history of polyarteritis nodosa, rheumatoid arthritis, as well as Raynaud's disease Continue heparin drip for anticoagulation until endovascular intervention Hematology consulted, appreciate recommendations Continue prednisone and Imuran (4) Anxiety ICD Codes: F41.9 - Anxiety disorder, unspecified Status: Chronic Plan: Continue home Xanax She is depressed as well and is on an SSRI normally (5) Nutrition, metabolism, and development symptoms ICD Codes: R63.8 - Other symptoms and signs concerning food and fluid intake Plan: Fluids: PO Electrolytes: WNL, continue to monitor Nutrition: Regular DVT prophylaxis: Heparin drip GI ppx: Protonix 40 mg po daily PT for activity (Phyllis Jacobs MD R1) Problem Qualifiers (1) Leukocytosis: Qualified Codes: D72.823 - Leukemoid reaction Phyllis Jacobs MD R1 Apr 12, 2017 10:53 Jeaneth Conklin MD Apr 12, 2017 12:55
[2017-04-12 12:30] LABS: BASOPHIL # 0.2 TH/MM3 (0-0.2); BASOPHIL % 0.9 % (0.0-2.0); EOSINOPHIL # 0.3 TH/MM3 (0-0.4); EOSINOPHIL % 1.7 % (0.0-4.0); HEMATOCRIT 44.7 % (35.0-46.0); HEMOGLOBIN 14.6 GM/DL (11.6-15.3); LYMPH % 15.6 % (9.0-44.0); MEAN CORPUSCULAR HEMOGLOBIN 28.7 PG (27.0-34.0); MEAN CORPUSCULAR HGB CONC 32.6 % (32.0-36.0); MEAN PLATELET VOLUME 7.8 FL (7.0-11.0); MONO % 3.9 % (0.0-8.0); MONOCYTE # 0.7 TH/MM3 (0-0.9); NEUT % 77.9 % (16.0-70.0); PLATELET COUNT 370 TH/MM3 (150-450); RED BLOOD COUNT 5.07 MIL/MM3 (4.00-5.30); RED CELL DISTRIBUTION WIDTH 16.4 % (11.6-17.2); WHITE BLOOD COUNT 19.3 TH/MM3 (4.0-11.0)
[2017-04-12 12:52] LABS: BICARBONATE 23.7 MEQ/L (21.0-32.0); CALCIUM 9.5 MG/DL (8.5-10.1); CREATININE 1.03 MG/DL (0.50-1.00)
[2017-04-12] MEDS ORDERED: MIDAZOLAM HCL 5 MG/5 ML VIAL ONE (13:06)
[2017-04-12] MEDS: MIDAZOLAM HCL 2 MG/2 ML VIAL ONE (13:53)
[2017-04-12] MEDS ORDERED: HEPARIN SODIUM - IV 10,000 UNITS/10 ML VIAL ONE (14:01)
[2017-04-12] MEDS ORDERED: PROTAMINE SULFATE 50 MG/5 ML VIAL ONE (14:10)
--- NOTE | 2017-04-12 14:12 | PD.CAR.PN ---
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 Patient underwent today interventional radiology angio and at this point it is apparent that this is not a lesion that can be treated by endovascular stenting or can be crossed. I've discussed this with Dr. Gallegos. This is surgically or endovascularly non-treatable lesion and risk off embolization into carotid or vertebral artery is extremely high Patient should remain on Eliquis any other issues arise [facility] Objective: Vital Signs Date Time Temp Pulse Resp B/P (MAP) Pulse Ox O2 Delivery O2 Flow Rate FiO2 04/12/17 12:00 96.9 57 19 116/56 (76) 96 04/12/17 11:43 96.9 57 19 116/56 (76) 96 04/12/17 08:00 96.9 58 18 111/69 (83) 98 04/11/17 23:52 97.2 85 18 118/54 (75) 94 04/11/17 20:21 97.6 72 18 126/60 (82) 96 04/11/17 16:41 96 21 04/11/17 16:00 98.7 84 14 92/58 (69) 96 Labs: Laboratory Tests Test 04/12/17 04:36 04/12/17 12:03 Activated Partial Thromboplast Time 51.3 SEC (24.3-30.1) White Blood Count 19.3 TH/MM3 (4.0-11.0) Red Blood Count 5.07 MIL/MM3 (4.00-5.30) Hemoglobin 14.6 GM/DL (11.6-15.3) Hematocrit 44.7 % (35.0-46.0) Mean Corpuscular Volume 88.0 FL (80.0-100.0) Mean Corpuscular Hemoglobin 28.7 PG (27.0-34.0) Mean Corpuscular Hemoglobin Concent 32.6 % (32.0-36.0) Red Cell Distribution Width 16.4 % (11.6-17.2) Platelet Count 370 TH/MM3 (150-450) Mean Platelet Volume 7.8 FL (7.0-11.0) Neutrophils (%) (Auto) 77.9 % (16.0-70.0) Lymphocytes (%) (Auto) 15.6 % (9.0-44.0) Monocytes (%) (Auto) 3.9 % (0.0-8.0) Eosinophils (%) (Auto) 1.7 % (0.0-4.0) Basophils (%) (Auto) 0.9 % (0.0-2.0) Neutrophils # (Auto) 15.0 TH/MM3 (1.8-7.7) Lymphocytes # (Auto) 3.0 TH/MM3 (1.0-4.8) Monocytes # (Auto) 0.7 TH/MM3 (0-0.9) Eosinophils # (Auto) 0.3 TH/MM3 (0-0.4) Basophils # (Auto) 0.2 TH/MM3 (0-0.2) CBC Comment AUTO DIFF Differential Comment AUTO DIFF CONFIRMED Platelet Estimate NORMAL (NORMAL) Platelet Morphology Comment NORMAL (NORMAL) Blood Urea Nitrogen 17 MG/DL (7-18) Creatinine 1.03 MG/DL (0.50-1.00) Random Glucose 99 MG/DL (74-106) Calcium Level 9.5 MG/DL (8.5-10.1) Sodium Level 138 MEQ/L (136-145) Potassium Level 4.3 MEQ/L (3.5-5.1) Chloride Level 104 MEQ/L (98-107) Carbon Dioxide Level 23.7 MEQ/L (21.0-32.0) Anion Gap 10 MEQ/L (5-15) Estimat Glomerular Filtration Rate 56 ML/MIN (>89) Result Diagram: 04/12/17 1203 04/12/17 1203 Alvin Mcconnell MD Apr 12, 2017 14:12
[2017-04-12] MEDS ORDERED: IODIXANOL 320 MG/ML 50 ML VIAL (for RAD SPEC) I-ARTERIAL ONE (15:06)
--- NOTE | 2017-04-12 15:50 | RADRPT ---
EXAM DATE/TIME: 04/12/2017 13:08 [facility] COMPARISON: No previous studies available for comparison. INDICATIONS : 56 year-old female with history of multiple autoimmune disorders and REESE vasculitis with 2 week histo ry of left upper extremity claudication and ulnar territory paresthesias. MRA examination demonstrate s left subclavian artery occlusion with patent left upper extremity arteries. Patient therefore prese nts for angiography and possible intervention. MEDICAL HISTORY : Raynaud's disease, Rheumatoid arthritis, DVT, Polyarteritis nodosa with vasculitis, Left arm and 4th and 5th digit numbness, Autoimmune global anemia, Pancreatitis, Migraines, COPD, GERD SURGICAL HISTORY : Cardiac cath, Left arm thrombolysis ENCOUNTER: Subsequent ACUITY: 1 year PAIN SCORE: 6/10 LOCATION: Left shoulder and leg FLUORO TIME: 1.3 minutes IMAGE SERIES: 1 ACCESS SITE: Right Femoral artery SEDATION TIME: 120 minutes CONTRAST: 1.) 40 cc Visipaque (iodixanol) MEDICATION(S): 1.) 6 mg midazolam (Versed) IV 2.) 200 mcg fentanyl (Sublimaze) IV DEVICE(S): 1.) Right common femoral artery 5F Vascade closure device PROCEDURE : 1. Ultrasound-guided puncture of the access site. 2. Conscious sedation with continuous EKG and Oximetry monitoring. 3. Arch aortogram 4. 5 [place] Vascade vascular closure of right common femoral artery access site. The risks, benefits and alternatives to the procedure were explained and verbal and written consent w as obtained. The site was prepped in sterile fashion. Full sterile technique was used, including ca p, mask, sterile gloves and gown and a large sterile sheet. Hand hygiene and 2% chlorhexidine and/or betadine/alcohol prep was utilized per protocol for cutaneous antisepsis. Sterile gel and sterile p robe cover were utilized for ultrasound guidance. The skin and subcutaneous tissues were infiltrated with local anesthetic solution. With ultrasound and fluoroscopic guidance the selected artery was punctured and a vascular sheath was placed. 5 Luxem[place]ger flush catheter was advanced to the proximal descending thoracic aorta an arteriogra m was performed. Catheter was then removed. The puncture site was closed with Vascade vascular closure an additional hemostasis obtained with man ual compression. The patient tolerated the procedure well and there were no complications. Conscious sedation was performed with the prescribed dosages and duration as above in the presence of an independent trained radiology nurse to assist in the monitoring of the patient. EKG and oximetry remained stable throughout the procedure. Findings: There is 3 vessel arch anatomy. Angiography confirms occlusion of the proximal subclavian artery with reconstitution at the junction of the vertebral origin. The proximal occlusion demonstrates rounded margins. There is retrograde flow to the left subclavian and axillary arteries. The left carotid and right brachiocephalic arteries are widely patent. The vertebral arteries appear codominant in size. Additional consultation by Dr. Gallegos. CONCLUSION: 1. Subacute appearing occlusion of the left subclavian artery extending to the origin of the left bronson tebral artery. No underlying significant atherosclerotic disease in the arch. Suspect a large compone nt of subacute thrombus in this lesion. Although patient is symptomatic, there is no limb threatening ischemia. Given this and the expected thrombus and lack of sufficient landing zone proximal to the v ertebral artery, decision was made not to intervene at this time. Plan: Suggest anticoagulation and follow up clinically. May reconsider intervention if patient's sym ptoms progress or possibly in 6-8 weeks to allow for stenting of organized thrombus. Migue Montenegro MD on April 12, 2017 at 15:31 Board Certified Radiologist. This report was verified electronically.
--- NOTE | 2017-04-12 16:00 | PD.RAD ---
Post Procedure Progress Note Pre Procedure Diagnosis: (1) cyanosis of the left fingers (2) Autoimmune disorder (3) Vasculitis (4) Polyarteritis nodosa Post Procedure Diagnosis: (1) Subclavian artery occlusive syndrome Procedure Date: Apr 12, 2017 Supervising Radiologist: Migue Montenegro Proceduralist/Assist: Darci Cohen, RT(R), Mary Felix RT(R) Anesthesia: Conscious Sedation Plan of Activity Patient to Unit: [facility] Patient Condition: Good See PACS Report for procedural detail/treatment Migue Montenegro MD Apr 12, 2017 16:00
[2017-04-12] MEDS: FOLIC ACID 1 MG TAB PO SCH (20:47)
[2017-04-12] MEDS ORDERED: ENOXAPARIN SODIUM 80 MG/0.8 ML SYRINGE SQ SCH (22:00)
[2017-04-12] MEDS: SODIUM CHLORIDE 0.9% FLUSH 10 ML FLUSH IV FLUSH PRN (22:52)
[2017-04-12] MEDS: HYDROmorphone HCL PF 1 MG/ML VIAL IV PUSH PRN (22:52)
[2017-04-13] VITALS: BP 124/67; PULSE 69; RESP 16; TEMP 98.1; O2SAT 98
[2017-04-13] MEDS ORDERED: ENOXAPARIN SODIUM 80 MG/0.8 ML SYRINGE SQ SCH (03:00)
[2017-04-13] MEDS: azaTHIOprine 50 MG TAB PO SCH (05:28)
[2017-04-13] MEDS: HYDROmorphone HCL PF 1 MG/ML VIAL IV PUSH PRN ×2 (05:31→11:22)
[2017-04-13] MEDS: SODIUM CHLORIDE 0.9% FLUSH 10 ML FLUSH IV FLUSH PRN (05:31)
[2017-04-13 08:00] VITALS: BP 121/59; PULSE 68; RESP 19; TEMP 97.8; O2SAT 95
[2017-04-13] MEDS: DOCUSATE SODIUM 50 MG/SENNA 8.6 MG TAB PO SCH (09:00)
[2017-04-13] MEDS: SODIUM CHLORIDE 0.9% FLUSH 10 ML FLUSH IV FLUSH SCH (09:06)
[2017-04-13] MEDS: ALPRAZolam 0.5 MG TAB PO PRN (09:06)
[2017-04-13] MEDS: predniSONE 10 MG TAB PO SCH (09:07)
[2017-04-13] MEDS: FLUoxetine HCL 20 MG CAP PO SCH (09:07)
[2017-04-13] MEDS: HYDROmorphone HCL 2 MG TAB PO SCH (09:07)
[2017-04-13] MEDS: PANTOPRAZOLE SOD 40 MG DELAYED RELEASE TAB PO SCH (09:07)
[2017-04-13] MEDS: GABAPENTIN 400 MG CAP PO SCH (09:08)
--- NOTE | 2017-04-13 09:23 | HHI.FPPN ---
Subjective Remarks No acute events overnight. Patient states this morning she has some pain around her right groin. She denies noticing any swelling or hard lumps. She states her other pain overall is relatively well controlled. She is eager to go home. She denies fevers, chills, CP, SOB, cough. Objective Vitals Vital Signs Date Time Temp Pulse Resp B/P (MAP) Pulse Ox O2 Delivery O2 Flow Rate FiO2 04/13/17 00:00 98.1 69 16 124/67 (86) 98 04/12/17 20:00 96.5 70 16 158/70 (99) 96 04/12/17 16:15 61 20 128/59 (82) 97 04/12/17 16:00 58 20 130/62 (84) 96 04/12/17 15:45 65 20 131/67 (88) 97 04/12/17 15:30 65 20 124/55 (78) 92 04/12/17 15:15 65 20 142/67 (92) 92 04/12/17 15:00 98.5 58 20 138/72 (94) 92 04/12/17 12:00 96.9 57 19 116/56 (76) 96 04/12/17 11:43 96.9 57 19 116/56 (76) 96 I/O 04/12/17 04/12/17 04/12/17 04/13/17 04/13/17 04/13/17 07:00 15:00 23:00 07:00 15:00 23:00 Intake Total 666 ml 0 ml 600 ml Output Total 400 ml Balance 666 ml 0 ml 200 ml Intake Oral 580 ml 0 ml 480 ml IV Total 86 ml 120 ml Output Urine Total 400 ml # Voids 3 2 # Bowel Movements 0 1 Result Diagram: 04/12/17 1203 04/12/17 1203 Objective Remarks GENERAL: Anxious appearing woman appearing older for her age w/prasad facies laying quietly in bed. NEURO: Alert. Normal speech. No focal deficits. SKIN: Warm and dry. No rashes or erythema. No erythema or swelling or hard areas noted on right groin examination. HEAD: Normocephalic. Atraumatic. EYES: EOMI. No scleral icterus. No injection or drainage. ENT: No nasal drainage. Moist mucous membranes, without teeth. NECK: Supple, trachea midline. CARDIOVASCULAR: Regular rate and rhythm without murmurs, rubs, or gallops. Radial pulses 2+ on right, faint but present on left. RESPIRATORY: Breath sounds clear to auscultation and equal bilaterally, without wheezes, rales, or rhonchi. GASTROINTESTINAL: Abdomen soft, nontender, nondistended, normal BS. MUSCULOSKELETAL: No lower extremity edema. Normal range of motion. A/P Assessment and Plan 56 year old female with medical history significant for polyarteritis nodosa, Raynaud's disease, rheumatoid arthritis, and DVT admitted with subclavian artery stenosis. 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 IR consulted, patient to undergo procedure today. Will discuss long-term anticoagulation afterwards, appreciate heme/onc recommendations Discharge Planning Stable for discharge home today Will need outpatient follow up with hematology/oncology Problem List: (1) Subclavian steal syndrome ICD Codes: G45.8 - Other transient cerebral ischemic attacks and related syndromes Status: Acute Plan: - Heparin drip discontinued - Start on therapeutic Lovenox 80 mg sq q12h per hematology - Vascular surgery consulted, Dr. Mcconnell, appreciate recommendations - Interventional radiology consulted, risks outweighing benefits of endovascular surgery - Hematology oncology consulted, started patient on therapeutic Lovenox as above and patient will f/u as outpt in hematology clinic - Patient refuses to use statin because of fears of muscle wasting - Recent MRA of chest and upper extremities showing a proximal subclavian artery occlusion and vertebral artery steal syndrome - Lower extremity US negative for DVT - Address any modifiable cardiovascular risk factors with patient - Continue smoking cessation counseling with patient - Aortic arch arteriogram 04/12: Subacute-appearing occlusion of the left subclavian artery extending to the origin of the left vertebral artery. No limb threatening ischemia. (2) Leukocytosis ICD Codes: D72.829 - Elevated white blood cell count, unspecified Status: Acute Plan: Consider a stress response Clinically appears without an acute infectious process Patient also on prednisone at home however this is chronic and a low dose Lungs remaining ctab Continue to monitor (3) Autoimmune disorder ICD Codes: M35.9 - Systemic involvement of connective tissue, unspecified Status: Chronic Plan: Patient has an extensive rheumatological history, currently following with Dr. Mejias. Patient reporting a history of polyarteritis nodosa, rheumatoid arthritis, as well as Raynaud's disease Hematology consulted, appreciate recommendations Continue therapeutic Lovenox Continue prednisone and Imuran (4) Anxiety ICD Codes: F41.9 - Anxiety disorder, unspecified Status: Chronic Plan: Continue home Xanax She is depressed as well and is on an SSRI normally (5) Nutrition, metabolism, and development symptoms ICD Codes: R63.8 - Other symptoms and signs concerning food and fluid intake Plan: Fluids: PO Electrolytes: WNL on 04/12 Nutrition: Regular DVT prophylaxis: Therapeutic Lovenox GI ppx: Protonix 40 mg po daily PT for activity Problem Qualifiers (1) Leukocytosis: Qualified Codes: D72.823 - Leukemoid reaction Kristian Fraser MD R2 Apr 13, 2017 09:23
--- NOTE | 2017-04-13 09:26 | HHI.DCPOC ---
Discharge Care Plan Diagnosis: (1) Subclavian artery occlusive syndrome Goals to Promote Your Health * To prevent worsening of your condition and complications, continue with your Lovenox injections twice daily until reevaluated by hematology as an outpatient in their clinic. Directions to Meet Your Goals Take your medications as prescribed Follow your dietary instruction Follow activity as directed Keep your appointments as scheduled Take your immunizations and boosters as scheduled If your symptoms worsen call your PCP, if no PCP go to Urgent Care Center or Emergency Room Smoking is Dangerous to Your Health. Avoid second hand smoke Call the 24-hour hour crisis hotline for domestic abuse at Kristian Fraser MD R2 Apr 13, 2017 09:26
--- NOTE | 2017-04-13 09:26 | HHI.DCPOC ---
Discharge Care Plan Diagnosis: (1) Subclavian artery occlusive syndrome Goals to Promote Your Health * To prevent worsening of your condition and complications, continue with your Lovenox injections twice daily until reevaluated by hematology as an outpatient in their clinic. Directions to Meet Your Goals Take your medications as prescribed Follow your dietary instruction Follow activity as directed Keep your appointments as scheduled Take your immunizations and boosters as scheduled If your symptoms worsen call your PCP, if no PCP go to Urgent Care Center or Emergency Room Smoking is Dangerous to Your Health. Avoid second hand smoke Call the 24-hour hour crisis hotline for domestic abuse at Kristian Fraser MD R2 Apr 13, 2017 09:26
--- NOTE | 2017-04-13 09:26 | HHI.DCPOC ---
Discharge Care Plan Diagnosis: (1) Subclavian artery occlusive syndrome Goals to Promote Your Health * To prevent worsening of your condition and complications, continue with your Lovenox injections twice daily until reevaluated by hematology as an outpatient in their clinic. Directions to Meet Your Goals Take your medications as prescribed Follow your dietary instruction Follow activity as directed Keep your appointments as scheduled Take your immunizations and boosters as scheduled If your symptoms worsen call your PCP, if no PCP go to Urgent Care Center or Emergency Room Smoking is Dangerous to Your Health. Avoid second hand smoke Call the 24-hour hour crisis hotline for domestic abuse at Kristian Fraser MD R2 Apr 13, 2017 09:26
[2017-04-13] MEDS ORDERED: ENOX80P SQ (09:28)
[2017-04-13] MEDS ORDERED: ASPI81CH CHEW (09:29)
--- NOTE | 2017-04-13 11:24 | PD.ONC.PN ---
Subjective Subjective Remarks Afebrile overnight. Patient feeling fatigued today but otherwise without complaints. No bleeding. Objective Data Date Time Temp Pulse Resp B/P (MAP) Pulse Ox O2 Delivery O2 Flow Rate FiO2 04/13/17 08:00 97.8 68 19 121/59 (79) 95 04/13/17 00:00 98.1 69 16 124/67 (86) 98 04/12/17 20:00 96.5 70 16 158/70 (99) 96 04/12/17 16:15 61 20 128/59 (82) 97 04/12/17 16:00 58 20 130/62 (84) 96 04/12/17 15:45 65 20 131/67 (88) 97 04/12/17 15:30 65 20 124/55 (78) 92 04/12/17 15:15 65 20 142/67 (92) 92 04/12/17 15:00 98.5 58 20 138/72 (94) 92 04/12/17 12:00 96.9 57 19 116/56 (76) 96 04/12/17 11:43 96.9 57 19 116/56 (76) 96 04/13/17 04/13/17 04/13/17 07:00 15:00 23:00 Intake Total 120 ml Balance 120 ml Result Diagram: 04/12/17 1203 04/12/17 1203 Laboratory Results Laboratory Tests Test 04/12/17 12:03 04/13/17 07:05 White Blood Count 19.3 TH/MM3 Red Blood Count 5.07 MIL/MM3 Hemoglobin 14.6 GM/DL Hematocrit 44.7 % Mean Corpuscular Volume 88.0 FL Mean Corpuscular Hemoglobin 28.7 PG Mean Corpuscular Hemoglobin Concent 32.6 % Red Cell Distribution Width 16.4 % Platelet Count 370 TH/MM3 Mean Platelet Volume 7.8 FL Neutrophils (%) (Auto) 77.9 % Lymphocytes (%) (Auto) 15.6 % Monocytes (%) (Auto) 3.9 % Eosinophils (%) (Auto) 1.7 % Basophils (%) (Auto) 0.9 % Neutrophils # (Auto) 15.0 TH/MM3 Lymphocytes # (Auto) 3.0 TH/MM3 Monocytes # (Auto) 0.7 TH/MM3 Eosinophils # (Auto) 0.3 TH/MM3 Basophils # (Auto) 0.2 TH/MM3 CBC Comment AUTO DIFF Differential Comment AUTO DIFF CONFIRMED Platelet Estimate NORMAL Platelet Morphology Comment NORMAL Blood Urea Nitrogen 17 MG/DL Creatinine 1.03 MG/DL Random Glucose 99 MG/DL Calcium Level 9.5 MG/DL Sodium Level 138 MEQ/L Potassium Level 4.3 MEQ/L Chloride Level 104 MEQ/L Carbon Dioxide Level 23.7 MEQ/L Anion Gap 10 MEQ/L Estimat Glomerular Filtration Rate 56 ML/MIN Activated Partial Thromboplast Time 28.5 SEC Culture Results Microbiology Date/Time Source Procedure Growth Status 04/12/17 07:10 Stool Stool Stool Occult Blood (CARYN) - Final HEMOCCULT NEGATIVE Complete 04/10/17 18:00 Stool Stool Stool Occult Blood (CARNY) - Final HEMOCCULT NEGATIVE Complete Administered Medications Medications (Trade) Dose Ordered Sig/Ayaz Route PRN Reason Start Time Stop Time Status Last Admin Dose Admin Alprazolam (Xanax) 0.5 mg BID PRN PO ANXIETY 04/09/17 15:15 04/13/17 09:06 Fluoxetine HCl (PROzac) 20 mg BID PO 04/09/17 21:00 04/13/17 09:07 Prednisone (Deltasone) 10 mg DAILY PO 04/10/17 09:00 04/13/17 09:07 Sodium Chloride (NS Flush) 2 ml UNSCH PRN IV FLUSH FLUSH AFTER USING IV ACCESS 04/09/17 16:00 04/13/17 05:31 Sodium Chloride (NS Flush) 2 ml BID IV FLUSH 04/09/17 21:00 04/13/17 09:06 Senna/Docusate Sodium (Kat-Colace) 1 tab BID PO 04/09/17 21:00 04/12/17 08:25 Hydromorphone HCl (Dilaudid) 2 mg BID PO 04/09/17 17:00 04/13/17 09:07 Hydromorphone HCl (Dilaudid Pf Inj) 1 mg Q4H PRN IV PUSH BREAKTHROUGH PAIN 04/09/17 16:00 04/13/17 05:31 Azathioprine (Imuran) 50 mg BID@,18 PO 04/10/17 09:00 04/13/17 05:28 Folic Acid (Folate) 1 mg DAILY@1999 PO 04/10/17 20:00 04/12/17 20:47 Pantoprazole Sodium (Protonix) 40 mg DAILY PO 04/10/17 09:00 04/13/17 09:07 Gabapentin (Neurontin) 800 mg BID PO 04/10/17 21:00 04/13/17 09:08 Enoxaparin Sodium (Lovenox Inj) 80 mg Q12H SQ 04/13/17 03:00 04/13/17 03:03 Objective Remarks GENERAL: Middle aged female supine in bed in nad. SKIN: Warm and dry. HEAD: Normocephalic. EYES: No injection or drainage. NECK: Supple, trachea midline. CARDIOVASCULAR: +S1/S2 RESPIRATORY: Breath sounds equal bilaterally. No accessory muscle use. GASTROINTESTINAL: Abdomen soft, non-tender, nondistended. EXTREMITIES: No cyanosis. NEUROLOGICAL: awake and alert, normal speech. Assessment/Plan Problem List: (1) Subclavian steal syndrome ICD Codes: G45.8 - Other transient cerebral ischemic attacks and related syndromes Status: Acute Plan: --on Lovenox History --Proximal subclavian artery occlusion with vertebral artery steal syndrome. --presented with left arm numbness and pain. 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 At that time, she was started on Lovenox but she only stayed on it for two months and stop because she could not afford it. --has been on aspirin since that time. --now presented with subclavian artery occlusion. 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 Assessment 56-year-old female with a complicated medical history with polyarteritis nodosa , Raynaud's disease, rheumatoid arthritis who presented to the emergency room with a complaint of left arm numbness and pain for at least two weeks. She saw Dr. Mejias and referred to see Dr. Pulido. However, she was directed to the emergency room because her MRA showed occlusion of proximal subclavian artery with vertebral artery steal syndrome. She has a history of a left axillary and ulnar artery thrombosis with emboli to the left fingers in 2013. At that time, she was seen by Dr. Jean and she was put on Lovenox. However, she was only on it for two months and stopped because she has no insurance. She then went on full dose aspirin since then. history of Polyarteritis nodosa. Raynaud's syndrome. Rheumatoid arthritis. Left footdrop. Depression and anxiety. Tobacco dependence. Thrombosis of the left axillary and ulnar artery with emboli to the fingers. Plan 1. ok to d/c home 2. fs faced to new patient referrals for follow up with Dr. Jean in 1 week. 3. continue Lovenox, d/c home on Lovenox Attending Statement Discussed above. Rosalinda Beauchamp Apr 13, 2017 11:24 Yi Jean MD Apr 13, 2017 17:54
[2017-04-13 12:00] VITALS: BP 103/56; PULSE 73; RESP 19; TEMP 98.4; O2SAT 95
[2017-04-13] MEDS ORDERED: LORazepam 1 MG TAB PO PRN (12:30)
--- NOTE | 2017-04-14 15:26 | HHI.DS ---
Discharge Summary Admission Date Apr 09, 2017 at 16:14 Discharge Date: Apr 13, 2017 Admitting Diagnosis subclavian steal syndrome (1) Subclavian steal syndrome Diagnosis: Principal Plan: - Heparin drip discontinued - Start on therapeutic Lovenox 80 mg sq q12h per hematology - Vascular surgery consulted, Dr. Mcconnell, appreciate recommendations - Interventional radiology consulted, risks outweighing benefits of endovascular surgery - Hematology oncology consulted, started patient on therapeutic Lovenox as above and patient will f/u as outpt in hematology clinic - Patient refuses to use statin because of fears of muscle wasting - Recent MRA of chest and upper extremities showing a proximal subclavian artery occlusion and vertebral artery steal syndrome - Lower extremity US negative for DVT - Address any modifiable cardiovascular risk factors with patient - Continue smoking cessation counseling with patient - Aortic arch arteriogram 04/12: Subacute-appearing occlusion of the left subclavian artery extending to the origin of the left vertebral artery. No limb threatening ischemia. ICD Codes: G45.8 - Other transient cerebral ischemic attacks and related syndromes Status: Acute (2) Leukocytosis Diagnosis: Secondary Plan: Consider a stress response Clinically appears without an acute infectious process Patient also on prednisone at home however this is chronic and a low dose Lungs remaining ctab Continue to monitor ICD Codes: D72.829 - Elevated white blood cell count, unspecified Status: Acute (3) Autoimmune disorder Diagnosis: Secondary Plan: Patient has an extensive rheumatological history, currently following with Dr. Mejias. Patient reporting a history of polyarteritis nodosa, rheumatoid arthritis, as well as Raynaud's disease Hematology consulted, appreciate recommendations Continue therapeutic Lovenox Continue prednisone and Imuran ICD Codes: M35.9 - Systemic involvement of connective tissue, unspecified Status: Chronic (4) Anxiety Diagnosis: Secondary Plan: Continue home Xanax She is depressed as well and is on an SSRI normally ICD Codes: F41.9 - Anxiety disorder, unspecified Status: Chronic (5) Nutrition, metabolism, and development symptoms Diagnosis: Secondary Plan: Fluids: PO Electrolytes: WNL on 04/12 Nutrition: Regular DVT prophylaxis: Therapeutic Lovenox GI ppx: Protonix 40 mg po daily PT for activity ICD Codes: R63.8 - Other symptoms and signs concerning food and fluid intake Consultants Vascular surgery, interventional radiology, hematology Brief History Ms Bryant is a 56 year old woman with a medical history significant for polyarteritis nodosa with vasculitis, Raynaud's disease, rheumatoid arthritis, and DVT. 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 Pulido after an MRA of her chest and upper extremities performed sometime this past week showed a proximal subclavian artery occlusion and vertebral artery steal syndrome. She was then sent to the ED here for further evaluation. She reports her left 4th and 5th fingers about 2 weeks ago started to go completely numb. The ventral aspect of her left arm also went numb. States she went to her doctor this past Wednesday and they could not obtain a blood pressure reading of her left arm. She states she is not currently on any anticoagulants. States she was taking Lovenox for about 2 months about 4 years ago but stated she did not have insurance so she stopped administering these. She is currently taking 325 mg aspirin BID. She states for the past 2 weeks she has had left facial, shoulder, and arm pain and swelling. She denies a history of hepatitis. She had no insurance when she stopped her anticoagulant and now has insurance and is willing to take something nursing home. Her arm pain and numbness is improved today compared to admission. She has been on heparin and has no other complaints today except her meds were a little mixed up. The plan is to have a radiologic intervention on Wednesday. She still has no pulse in her left wrist compared to a normal pulse in her right wrist. CBC/BMP: 04/12/17 1203 04/12/17 1203 Significant Findings Laboratory Tests Test 04/12/17 04:36 04/12/17 12:03 04/13/17 07:05 Activated Partial Thromboplast Time 51.3 SEC (24.3-30.1) White Blood Count 19.3 TH/MM3 (4.0-11.0) Neutrophils (%) (Auto) 77.9 % (16.0-70.0) Neutrophils # (Auto) 15.0 TH/MM3 (1.8-7.7) Creatinine 1.03 MG/DL (0.50-1.00) Estimat Glomerular Filtration Rate 56 ML/MIN (>89) Imaging Aortic arch arteriogram 04/12/2017: "Subacute-appearing occlusion of the left subclavian artery extending to the origin of the left vertebral artery. No underlying significant atherosclerotic disease in the arch. Suspect a large component of subacute thrombus in this lesion. Although patient is symptomatic, there is no limb threatening ischemia. Given this and the expected thrombus and lack of sufficient landing zone proximal to the vertebral artery, decision was made not to intervene at this time. Plan: Suggest anticoagulation and follow-up clinically. May reconsider intervention if patient's symptoms progress or possibly in 6-8 weeks to allow for stenting of organized thrombus." Lower extremity ultrasound 04/09/2017: Negative exam. No sonographic or Doppler findings of deep venous thrombosis. PE at Discharge GENERAL: Anxious appearing woman appearing older for her age w/prasad facies laying quietly in bed. NEURO: Alert. Normal speech. No focal deficits. SKIN: Warm and dry. No rashes or erythema. No erythema or swelling or hard areas noted on right groin examination. HEAD: Normocephalic. Atraumatic. EYES: EOMI. No scleral icterus. No injection or drainage. ENT: No nasal drainage. Moist mucous membranes, without teeth. NECK: Supple, trachea midline. CARDIOVASCULAR: Regular rate and rhythm without murmurs, rubs, or gallops. Radial pulses 2+ on right, faint but present on left. RESPIRATORY: Breath sounds clear to auscultation and equal bilaterally, without wheezes, rales, or rhonchi. GASTROINTESTINAL: Abdomen soft, nontender, nondistended, normal BS. MUSCULOSKELETAL: No lower extremity edema. Normal range of motion. Hospital Course Patient was started on a heparin drip. Vascular surgery was consulted. Aortic arch arteriogram was performed, findings as above. The decision per interventional radiology and vascular surgery were not to intervene during this hospitalization with endovascular or open surgery. Hematology was consulted for recommendations on long-term anticoagulation. Decision was made to keep patient on low molecular weight heparin with the additional benefit to affect clot bound thrombin and induce an anti-inflammatory effect as well as Lovenox being effective before for the patient. Patient was advised to continue to follow-up with hematology in their clinic with consideration to be started on an alternate anticoagulant at a future time. Pt Condition on Discharge: Stable Discharge Disposition: Discharge Home Discharge Instructions DIET: Follow Instructions for: Heart Healthy Diet Activities you can perform: Regular-No Restrictions Follow up Referrals: Hematology - 2-3 Days with Yi Jean MD PCP Follow-up - 2-3 Days New Medications: Aspirin (Aspirin) 81 Mg Chew 81 MG CHEW DAILY, #28 TAB 0 Refills Enoxaparin Inj (Lovenox Inj) 80 mg/0.8 ML Syr 80 MG SQ Q12H, #60 INJECTION Continued Medications: Albuterol 8.5 GM Inh (Proair Hfa 8.5 GM Inh) 90 Mcg/Act Aer 1 PUFF INH Q4H PRN for SHORTNESS OF BREATH, #1 INHALER 0 Refills 108 mcg/actuation Alprazolam (Xanax) 0.5 Mg Tab 0.5 MG PO BID PRN for ANXIETY, TAB 0 Refills Azathioprine (Imuran) 50 Mg Tab 50 MG PO BID for Immunosuppression, #30 TAB 0 Refills Hazardous agent: use appropriate precautions for handling and disposal. Calcium Carbonate (Calcium Carbonate) 1,500 Mg Tab 500 MG PO BID for Calcium Supplement, TAB 0 Refills 1,500 mg calcium carbonate (600 mg elemental calcium) Cholecalciferol (Vitamin D3) 1,000 Unit Cap Unknown Dose PO DAILY for Nutritional Supplement, #1 BOTTLE 0 Refills Fluoxetine (Prozac) 20 Mg Cap 20 MG PO BID, #30 CAP 0 Refills Folic Acid (Folic Acid) 1 Mg Tablet 1 MG PO HS Gabapentin (Gabapentin) 800 Mg Tab 800 MG PO TID, #90 TAB 0 Refills Hydromorphone (Dilaudid) 2 Mg Tab 2 MG PO BID for Pain Management, TAB 0 Refills Lactobacillus Acidophilus (Probiotic) 10 Billion Cell Cap 1 CAP PO DAILY for Nutritional Supplement, #90 CAP 0 Refills Omeprazole (Omeprazole) 40 Mg Cap 40 MG PO DAILY, #30 CAP 0 Refills Polyethylene Glycol 3350 Powder (Miralax Powder) 17 Gm Powd 17 GM PO DAILY for Constipation, #1 CAN 0 Refills Mix and dissolve one measuring cap-ful (17 grams) in water or juice. Prednisone (Prednisone) 10 Mg Tab 10 MG PO DAILY, TAB 0 Refills Kristian Fraser MD R2 Apr 14, 2017 15:26
== END 2017-04-13 14:45 | disposition home or self-care (01) | DRG 69 ==
LOC: NEPE 11:30 → NEDA 13:32 → INTOOBSV 13:32 → OBSVTOIN 16:14 → N07B 17:09
PROVIDERS: ADMIT Family Medicine; ATTEND Family Medicine
PROC: B3101ZZ Fluoroscopy of Thoracic Aorta using Low Osmolar Contrast (ICD-10-PCS; principal; 2017-04-12)
DX: G45.8 Other transient cerebral ischemic attacks and related syndromes (principal); M30.0 Polyarteritis nodosa; D68.69 Other thrombophilia; I73.00 Raynaud's syndrome without gangrene; M06.9 Rheumatoid arthritis, unspecified; F32.9 Major depressive disorder, single episode, unspecified; F41.9 Anxiety disorder, unspecified; M21.372 Foot drop, left foot; D72.823 Leukemoid reaction; J44.9 Chronic obstructive pulmonary disease, unspecified; K21.9 Gastro-esophageal reflux disease without esophagitis; D64.9 Anemia, unspecified; F17.210 Nicotine dependence, cigarettes, uncomplicated; Z86.718 Personal history of other venous thrombosis and embolism
CPT/HCPCS: 80048; 80053; 80061; 81001; 82272; 83036; 85025; 85610; 85730; 93971; 94150; C1769; C1887; C1894; J1170; J1644; J1650; J2250; J2720; J3010; J7500; J7512; Q9967

== ENCOUNTER 2017-05-18 11:30 | Emergency (ER) | payer MEDICARE, MEDICAID ==
[~2017-05-18] VITALS: Ht 165.1 cm; Wt 72.7 kg
[~2017-05-18 11:30] MED LIST changes: +ASPI-183 PO; +ASPI-516 CHEW; -ASPI325T PO; +CHOL10008 PO; -DILA2TAB2 PO; +DILA2TAB4 PO; +ENOX80P SQ; -IMUR50TA PO; +IMUR50TA5 PO; +LACTCAP8 PO; -LOPE-1 PO; +MIRA3350 PO; +OMEP40CA2 PO; -PRED20 PO
[2017-05-18 11:31] VITALS: BP 181/79; PULSE 103; RESP 20; TEMP 99.4; O2SAT 98
[2017-05-18] MEDS ORDERED: IOHEXOL 350 MG/ML 10 ML VIAL (for RAD DIAG) IVCONTRAST ONE (11:31)
[2017-05-18 12:29] LABS: AUTOMATED NEUTROPHIL # 9.3 TH/MM3 (1.8-7.7); BASOPHIL # 0.1 TH/MM3 (0-0.2); EOSINOPHIL % 0.1 % (0.0-4.0); HEMATOCRIT 44.2 % (35.0-46.0); HEMO FLAGS DIFF FINAL; LYMPH % 16.6 % (9.0-44.0); MEAN CELL VOLUME 87.7 FL (80.0-100.0); MEAN CORPUSCULAR HEMOGLOBIN 28.4 PG (27.0-34.0); MEAN CORPUSCULAR HGB CONC 32.3 % (32.0-36.0); MONO % 4.1 % (0.0-8.0); NEUT % 78.2 % (16.0-70.0); PLATELET COUNT 472 TH/MM3 (150-450); RED BLOOD COUNT 5.04 MIL/MM3 (4.00-5.30); WHITE BLOOD COUNT 11.9 TH/MM3 (4.0-11.0)
[2017-05-18 12:43] LABS: APTT (PATIENT) 26.3 SEC (24.3-30.1); PROTHROMBIN TIME - PATIENT 9.9 SEC (9.8-11.6)
[2017-05-18 12:55] LABS: ALKALINE PHOSPHATASE 86 U/L (45-117); TOTAL BILIRUBIN ADULT 0.3 MG/DL (0.2-1.0)
[2017-05-18 12:57] LABS: ALT (GPT) 34 U/L (10-53); ANION GAP 8 MEQ/L (5-15); AST (GOT) 22 U/L (15-37); BICARBONATE 25.3 MEQ/L (21.0-32.0); BLOOD UREA NITROGEN 13 MG/DL (7-18); CHLORIDE 104 MEQ/L (98-107); GLOMERULAR FILTRATION RATE 62 ML/MIN (>89); POTASSIUM 4.9 MEQ/L (3.5-5.1); SODIUM (NA) 137 MEQ/L (136-145)
[2017-05-18] MEDS ORDERED: HYDROmorphone HCL PF 1 MG/ML VIAL IV PUSH ONE ×2 (13:00→20:15)
--- NOTE | 2017-05-18 13:08 | PD ---
HPI Chief Complaint: Pain: Acute or Chronic Time Seen by Provider: 11:42 Travel History International Travel<30 days: No Contact w/Intl Traveler<30days: No Traveled to known affect area: No History of Present Illness HPI This is a 56 -year-old female who has a history of multiple rheumatologic diagnoses and hypercoagulable state who presents to the emergency department with left arm pain. Her pain started last night, severe, constant and affecting mostly her left upper arm above the elbow into the armpit. She denies any numbness or weakness of the arm. Patient was recently admitted and diagnosed with a total occlusion of the proximal subclavian right after the takeoff of the aorta with vertebral artery subclavian steal syndrome. She was seen by both interventional radiology and vascular surgery who more concerned about intervening given the high risks and recommended that she follow up with [facility] as an outpatient. She has no appointment on the but her pain increased so significantly last night that she decided to come to the emergency department. PFSH Past Medical History Hx Anticoagulant Therapy: Yes (LOVENOX) Arthritis: No Asthma: No Autoimmune Disease: Yes (raynauds, "arteritis nordosum", vasculitis from autoimmune disease. ) Anxiety: Yes Depression: No Heart Rhythm Problems: Yes (MURMUR) Cancer: No Cardiac Catheterization: No Cardiovascular Problems: Yes High Cholesterol: No Chemotherapy: No Chest Pain: No Congestive Heart Failure: No COPD: Yes Cerebrovascular Accident: No Diabetes: No Diminished Hearing: No Endocrine: No Gastrointestinal Disorders: Yes (PANCREATITIS) GERD: Yes Genitourinary: No Headaches: No Hiatal Hernia: No Heparin Induced Thrombocytopen: No Hypertension: No Immune Disorder: Yes (reynauds, vasculitis, REESE) Implanted Vascular Access Dvce: No Kidney Stones: No Musculoskeletal: Yes (left paralyzed foot) Neurologic: Yes Psychiatric: Yes Reproductive: No Respiratory: No Immunizations Current: No Migraines: Yes Myocardial Infarction: No Pancreatitis: Yes Radiation Therapy: No Renal Failure: No Seizures: No Sickle Cell Disease: No Sleep Apnea: No Thyroid Disease: No ?: Not Menopausal: Yes Dilation and Curettage (D&C): Yes Tubal Ligation: Yes Past Surgical History AICD: No Appendectomy: Yes Arteriovenous Shunt: No Body Medical Devices: GEL BREAST IMPLANTS removed Cardiac Surgery: No Coronary Artery Bypass Graft: No Ear Surgery: No Endocrine Surgery: No Eye Surgery: Yes (L orbital fx and subsequent plate 2009) Gynecologic Surgery: Yes (HYSTERECTOMY,D&C, TUBAL LIGATION) Hysterectomy: Yes Insulin Pump: No Joint Replacement: No Neurologic Surgery: No Oral Surgery: Yes Pacemaker: No Thoracic Surgery: No Tonsillectomy: Yes Other Surgery: Yes (PILONIDAL CYST/ Breast implants and explants) Family History Family Myocardial Infarction: Yes (dad) Social History Alcohol Use: Yes (OCC) Tobacco Use: Yes ("Few cigarettes per day" ) Substance Use: No Allergies-Medications (Allergen,Severity, Reaction): Coded Allergies: vancomycin (Unverified Allergy, Severe, Rash, 01/26/17) 12/24/16 Reported Meds & Prescriptions Reported Meds & Active Scripts Active Aspirin 81 Mg Chew 81 Mg CHEW DAILY Lovenox Inj (Enoxaparin Sodium) 80 mg/0.8 ML Syr 80 Mg SQ Q12H Reported Probiotic (Lactobacillus Acidophilus) 10 Billion Cell Cap 1 Cap PO DAILY Vitamin D3 (Cholecalciferol) 1,000 Unit Cap Unknown Dose PO DAILY Omeprazole 40 Mg Cap 40 Mg PO DAILY Miralax Powder (Polyethylene Glycol 3350 Powder) 17 Gm Powd 17 Gm PO DAILY Mix and dissolve one measuring cap-ful (17 grams) in water or juice. Dilaudid (Hydromorphone HCl) 2 Mg Tab 2 Mg PO BID Gabapentin 800 Mg Tab 800 Mg PO TID Folic Acid 1 Mg Tablet 1 Mg PO HS Prozac (Fluoxetine HCl) 20 Mg Cap 20 Mg PO BID Imuran (Azathioprine) 50 Mg Tab 50 Mg PO BID Hazardous agent: use appropriate precautions for handling and disposal. Prednisone 10 Mg Tab 10 Mg PO DAILY Calcium Carbonate 1,500 Mg Tab 500 Mg PO BID 1,500 mg calcium carbonate (600 mg elemental calcium) Xanax (Alprazolam) 0.5 Mg Tab 0.5 Mg PO BID PRN Review of Systems Except as stated in HPI: all other systems reviewed are Neg Physical Exam Narrative GENERAL:Well appearing, no acute distress SKIN: Focused skin assessment warm and dry. HEAD: Atraumatic. Normocephalic. EYES: Pupils equal and round. No injection or drainage. ENT: Moist mucous membranes NECK: Trachea midline. CARDIOVASCULAR: Regular rate and rhythm. No murmur appreciated. 2+ radial pulse in the left upper extremity, slightly cooler than right upper extremity RESPIRATORY: Clear to auscultation. Breath sounds equal bilaterally. GASTROINTESTINAL: Abdomen soft, non-tender, nondistended. MUSCULOSKELETAL: No obvious deformities. NEUROLOGICAL: Awake and alert. No obvious cranial nerve deficits. Sensation and motor intact in the median, ulnar and radial distributions of the right hand PSYCHIATRIC: Appropriate mood and affect; insight and judgment normal. Data Data Last Documented VS Vital Signs Date Time Temp Pulse Resp B/P (MAP) Pulse Ox O2 Delivery O2 Flow Rate FiO2 05/18/17 21:02 05/18/17 19:51 56 16 96 Room Air 05/18/17 11:31 99.4 Orders Orders Complete Blood Count With Diff (05/18/17 11:56) Comprehensive Metabolic Panel (05/18/17 11:56) Prothrombin Time / Inr (Pt) (05/18/17 11:56) Act Partial Throm Time (Ptt) (05/18/17 11:56) Consult Vascular Surgery (05/18/17 ) Cta Up Extrem W Iv Cont W 3d (05/18/17 ) (Hub Use Only)Inp Phy Cons/Ref (05/18/17 ) Hydromorphone Pf Inj (Dilaudid Pf Inj) (05/18/17 13:00) Alprazolam (Xanax) (05/18/17 15:45) Hydromorphone (Dilaudid) (05/18/17 15:45) Vascular Access Team Consult/P PRN (05/18/17 15:54) Vascular Poc Ultrasound (05/18/17 ) Iohexol 350 Inj (Omnipaque 350 Inj) (05/18/17 11:31) Ondansetron Inj (Zofran Inj) (05/18/17 20:15) Hydromorphone Pf Inj (Dilaudid Pf Inj) (05/18/17 20:15) Ed Discharge Order (05/18/17 20:44) Labs Laboratory Tests Test 05/18/17 12:10 White Blood Count 11.9 TH/MM3 Red Blood Count 5.04 MIL/MM3 Hemoglobin 14.3 GM/DL Hematocrit 44.2 % Mean Corpuscular Volume 87.7 FL Mean Corpuscular Hemoglobin 28.4 PG Mean Corpuscular Hemoglobin Concent 32.3 % Red Cell Distribution Width 16.0 % Platelet Count 472 TH/MM3 Mean Platelet Volume 7.8 FL Neutrophils (%) (Auto) 78.2 % Lymphocytes (%) (Auto) 16.6 % Monocytes (%) (Auto) 4.1 % Eosinophils (%) (Auto) 0.1 % Basophils (%) (Auto) 1.0 % Neutrophils # (Auto) 9.3 TH/MM3 Lymphocytes # (Auto) 2.0 TH/MM3 Monocytes # (Auto) 0.5 TH/MM3 Eosinophils # (Auto) 0.0 TH/MM3 Basophils # (Auto) 0.1 TH/MM3 CBC Comment DIFF FINAL Differential Comment Prothrombin Time 9.9 SEC Prothromb Time International Ratio 1.0 RATIO Activated Partial Thromboplast Time 26.3 SEC Blood Urea Nitrogen 13 MG/DL Creatinine 0.94 MG/DL Random Glucose 109 MG/DL Total Protein 7.1 GM/DL Albumin 3.6 GM/DL Calcium Level 9.5 MG/DL Alkaline Phosphatase 86 U/L Aspartate Amino Transf (AST/SGOT) 22 U/L Alanine Aminotransferase (ALT/SGPT) 34 U/L Total Bilirubin 0.3 MG/DL Sodium Level 137 MEQ/L Potassium Level 4.9 MEQ/L Chloride Level 104 MEQ/L Carbon Dioxide Level 25.3 MEQ/L Anion Gap 8 MEQ/L Estimat Glomerular Filtration Rate 62 ML/MIN MDM Medical Decision Making Medical Screen Exam Complete: Yes Emergency Medical Condition: Yes Differential Diagnosis vertebral artery steal syndrome, acute arterial occlusion, dvt, chronic pain Narrative Course This is a 56 year old female who presents to the emergency department with history of hypercoagulability with a known proximal subclavian occlusion who reports increasing left upper extremity pain. She has no objective signs of ischemic limb. Dr. Booth personal lines insurance advisor for vascular surgery came to evaluate the patient at the bedside and agreed with CTA. Patient likely will be able to follow-up as an outpatient and her chronic occlusion is unlikely to be the source of her symptoms. Sarah Geller MD May 18, 2017 13:08
--- NOTE | 2017-05-18 13:28 | PD.VS.CON ---
History of Present Illness Chief Complaint: L Neck and groin pain, vasculitis Consult Requested by: ED History of Present Illness 56 yo female who carries a diagnosis of vasculitis who presents with neck pain and finger tingling as well as groin pain and foot pain. The patient was previously seen in [place] and told she had a vasculitis and has an appointment with an outside physician for this She is on chronic steroids. I was asked to see her for L SCA occlusion. She has only tingling in 1st and 5th digits of LEFT hand. IR did arch aortogram last admission that showed L SCA occlusion and retrograde L vertebral filling with decent opacification of the L arm. 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 History [place] Home Medications Active Scripts Aspirin (Aspirin) 81 Mg Chew, 81 MG CHEW DAILY, #28 TAB 0 Refills Prov:Kristian Fraser MD R2 04/13/17 Enoxaparin Inj (Lovenox Inj) 80 mg/0.8 ML Syr, 80 MG SQ Q12H, #60 INJECTION Prov:Kristian Fraser MD R2 04/13/17 Reported Medications Lactobacillus Acidophilus (Probiotic) 10 Billion Cell Cap, 1 CAP PO DAILY for Nutritional Supplement, #90 CAP 0 Refills 04/09/17 Cholecalciferol (Vitamin D3) 1,000 Unit Cap, PO DAILY for Nutritional Supplement , #1 BOTTLE 0 Refills 04/09/17 Omeprazole (Omeprazole) 40 Mg Cap, 40 MG PO DAILY, #30 CAP 0 Refills 04/09/17 Polyethylene Glycol 3350 Powder (Miralax Powder) 17 Gm Powd, 17 GM PO DAILY for Constipation, #1 CAN 0 Refills Mix and dissolve one measuring cap-ful (17 grams) in water or juice. 04/09/17 Hydromorphone (Dilaudid) 2 Mg Tab, 2 MG PO BID for Pain Management, TAB 0 Refills 12/24/16 Gabapentin (Gabapentin) 800 Mg Tab, 800 MG PO TID, #90 TAB 0 Refills 12/24/16 Folic Acid (Folic Acid) 1 Mg Tablet, 1 MG PO HS 12/24/16 Fluoxetine (Prozac) 20 Mg Cap, 20 MG PO BID, #30 CAP 0 Refills 12/24/16 Azathioprine (Imuran) 50 Mg Tab, 50 MG PO BID for Immunosuppression, #30 TAB 0 Refills Hazardous agent: use appropriate precautions for handling and disposal. 12/24/16 Prednisone (Prednisone) 10 Mg Tab, 10 MG PO DAILY, TAB 0 Refills 12/24/16 Calcium Carbonate (Calcium Carbonate) 1,500 Mg Tab, 500 MG PO BID for Calcium Supplement, TAB 0 Refills 1,500 mg calcium carbonate (600 mg elemental calcium) 12/24/16 Alprazolam (Xanax) 0.5 Mg Tab, 0.5 MG PO BID Y for ANXIETY, TAB 0 Refills 12/24/16 Discontinued Reported Medications Aspirin (Aspirin) 325 Mg Tab, 325 MG PO BID, #30 TAB 0 Refills 12/24/16 Discontinued Scripts Albuterol 8.5 GM Inh (Proair Hfa 8.5 GM Inh) 90 Mcg/Act Aer, 1 PUFF INH Q4H Y for SHORTNESS OF BREATH, #1 INHALER 0 Refills 108 mcg/actuation Prov:Gen Ku MD 11/07/16 Coded Allergies: vancomycin (Unverified Allergy, Severe, Rash, 01/26/17) 12/24/16 Review of Systems Constitutional: COMPLAINS OF: Fatigue Ears, nose, mouth, throat: COMPLAINS OF: Vertigo Cardiovascular: DENIES: Chest pain Musculoskeletal: COMPLAINS OF: Joint pain, Muscle aches, Stiffness, Back pain, Neck pain Psychiatric: COMPLAINS OF: Anxiety Physical Exam Vitals/I&O Date Time Temp Pulse Resp B/P (MAP) Pulse Ox O2 Delivery O2 Flow Rate FiO2 05/18/17 12:06 72 18 05/18/17 11:31 99.4 103 20 181/79 (113) 98 Room Air Neuro: anxious female, NAD HEENT: NC/AT; anicteric sclera Neck: trachea midline Heart: reg rate Lungs: nonlabored Vascular: palpable but weak L radial pulse palpable pedal pulses Extremities: L foot plantar contracture L UE motor intact L neck mild TTP Laboratory Tests Test 05/18/17 12:10 White Blood Count 11.9 Red Blood Count 5.04 Hemoglobin 14.3 Hematocrit 44.2 Mean Corpuscular Volume 87.7 Mean Corpuscular Hemoglobin 28.4 Mean Corpuscular Hemoglobin Concent 32.3 Red Cell Distribution Width 16.0 Platelet Count 472 Mean Platelet Volume 7.8 Neutrophils (%) (Auto) 78.2 Lymphocytes (%) (Auto) 16.6 Monocytes (%) (Auto) 4.1 Eosinophils (%) (Auto) 0.1 Basophils (%) (Auto) 1.0 Neutrophils # (Auto) 9.3 Lymphocytes # (Auto) 2.0 Monocytes # (Auto) 0.5 Eosinophils # (Auto) 0.0 Basophils # (Auto) 0.1 CBC Comment DIFF FINAL Differential Comment Prothrombin Time 9.9 Prothromb Time International Ratio 1.0 Activated Partial Thromboplast Time 26.3 Blood Urea Nitrogen 13 Creatinine 0.94 Random Glucose 109 Total Protein 7.1 Albumin 3.6 Calcium Level 9.5 Alkaline Phosphatase 86 Aspartate Amino Transf (AST/SGOT) 22 Alanine Aminotransferase (ALT/SGPT) 34 Total Bilirubin 0.3 Sodium Level 137 Potassium Level 4.9 Chloride Level 104 Carbon Dioxide Level 25.3 Anion Gap 8 Estimat Glomerular Filtration Rate 62 Assessment and Plan Plan She may in fact have vasculitis of some sort and might benefit from stress dose steroids. I would not offer LSCA revascularization which actually would be straightforward (C-SC bypass) as I don't think evangelical of the perfusion in the LEFT hand would alleviate her neck pain nor intermittent finger tingling. Recommend CTA of neck, chest and arm. Gen Booth MD FACS RPVI [employer] [facility] [phone] Gen Booth MD May 18, 2017 13:28
[2017-05-18] MEDS ORDERED: HYDROmorphone HCL 2 MG TAB PO ONE (15:45)
[2017-05-18] MEDS ORDERED: ALPRAZolam 0.5 MG TAB PO ONE (15:45)
[2017-05-18 18:05] VITALS: BP 125/72; PULSE 72; RESP 18; O2SAT 99
--- NOTE | 2017-05-18 19:12 | PD ---
Data Data Last Documented VS Vital Signs Date Time Temp Pulse Resp B/P (MAP) Pulse Ox O2 Delivery O2 Flow Rate FiO2 05/18/17 19:51 56 16 126/62 (83) 96 Room Air 05/18/17 11:31 99.4 Orders Orders Complete Blood Count With Diff (05/18/17 11:56) Comprehensive Metabolic Panel (05/18/17 11:56) Prothrombin Time / Inr (Pt) (05/18/17 11:56) Act Partial Throm Time (Ptt) (05/18/17 11:56) Consult Vascular Surgery (05/18/17 ) Cta Up Extrem W Iv Cont W 3d (05/18/17 ) (Hub Use Only)Inp Phy Cons/Ref (05/18/17 ) Hydromorphone Pf Inj (Dilaudid Pf Inj) (05/18/17 13:00) Alprazolam (Xanax) (05/18/17 15:45) Hydromorphone (Dilaudid) (05/18/17 15:45) Vascular Access Team Consult/P PRN (05/18/17 15:54) Vascular Poc Ultrasound (05/18/17 ) Iohexol 350 Inj (Omnipaque 350 Inj) (05/18/17 11:31) Ondansetron Inj (Zofran Inj) (05/18/17 20:15) Hydromorphone Pf Inj (Dilaudid Pf Inj) (05/18/17 20:15) Labs Laboratory Tests Test 05/18/17 12:10 White Blood Count 11.9 TH/MM3 Red Blood Count 5.04 MIL/MM3 Hemoglobin 14.3 GM/DL Hematocrit 44.2 % Mean Corpuscular Volume 87.7 FL Mean Corpuscular Hemoglobin 28.4 PG Mean Corpuscular Hemoglobin Concent 32.3 % Red Cell Distribution Width 16.0 % Platelet Count 472 TH/MM3 Mean Platelet Volume 7.8 FL Neutrophils (%) (Auto) 78.2 % Lymphocytes (%) (Auto) 16.6 % Monocytes (%) (Auto) 4.1 % Eosinophils (%) (Auto) 0.1 % Basophils (%) (Auto) 1.0 % Neutrophils # (Auto) 9.3 TH/MM3 Lymphocytes # (Auto) 2.0 TH/MM3 Monocytes # (Auto) 0.5 TH/MM3 Eosinophils # (Auto) 0.0 TH/MM3 Basophils # (Auto) 0.1 TH/MM3 CBC Comment DIFF FINAL Differential Comment Prothrombin Time 9.9 SEC Prothromb Time International Ratio 1.0 RATIO Activated Partial Thromboplast Time 26.3 SEC Blood Urea Nitrogen 13 MG/DL Creatinine 0.94 MG/DL Random Glucose 109 MG/DL Total Protein 7.1 GM/DL Albumin 3.6 GM/DL Calcium Level 9.5 MG/DL Alkaline Phosphatase 86 U/L Aspartate Amino Transf (AST/SGOT) 22 U/L Alanine Aminotransferase (ALT/SGPT) 34 U/L Total Bilirubin 0.3 MG/DL Sodium Level 137 MEQ/L Potassium Level 4.9 MEQ/L Chloride Level 104 MEQ/L Carbon Dioxide Level 25.3 MEQ/L Anion Gap 8 MEQ/L Estimat Glomerular Filtration Rate 62 ML/MIN [facility] Medical Record Reviewed: Yes Supervised Visit with RODOLFO: No Interpretation(s) Last Impressions Upper Extremity CTA 05/18/17 0000 Signed Impressions: Service Date/Time: Thursday, May 18, 2017 19:13 - CONCLUSION: 1. Occlusion of the proximal portion of the left subclavian artery with filling of the left subclavian artery distal to the left vertebral artery likely related to subclavian steal syndrome with retrograde flow within the left vertebral artery. Clinical correlation is recommended. The remainder of the left upper extremity arteries are widely patent. 2. 2.2 cm left thyroid nodule. Gen Chambers MD Narrative Course During the course of the patients emergency department visit, the patients history, examination, and differential diagnosis were reviewed with the patient. The patient was placed on a lusterer with oximetry and frequent blood pressure monitoring. The patient had IV access obtained and blood work sent for analysis. The patient's case was checked out to me by Dr. Wilson at the conclusion of her shift. The patient was initially seen by , please see her complete history and physical. The patient has a known history of subclavian artery occlusion. The patient is on Lovenox subcutaneous. The patient is followed by for this and he was consulted in the emergency department for evaluation of the patient. He did come in and see the patient. The patient was initially provided hydromorphone for pain, Zofran for nausea. The patients laboratory studies were reviewed and remarkable for a white count of 11.9, hemoglobin 14.3, platelets were 72 with 78.2 neutrophils, CMP is remarkable for glucose of 109, PT 9.9, PTT 26.3 Radiology studies were reviewed and remarkable for a CTA of the left upper extremity reveals occlusion of the proximal portion of the left subclavian artery with filling of the left subclavian artery distal to the left vertebral artery likely related to subclavian steal syndrome with retrograde flow through the left vertebral artery. The remainder of the left upper extremity arteries are widely patent. The patient does have a 2.2 cm incidental left thyroid nodule noted. The patient will be given a copy of her CT scan findings for follow-up with her primary care physician and specialist at the [facility]. I spoke to at 8:35 PM regarding this patient's case. He reports that he will review the patient's images and call me back regarding the results. He called back at approximately 8:41 PM and after reviewing the patient's images felt that the patient's other arteries appeared to be completely normal and the symptoms were not consistent with a vasculitis. He recommends that the patient follow-up with the [facility] as she previously planned. He does not recommend any changes in her medication regimen currently. His only recommendation is that she avoids having her blood pressure taken in the left upper extremity. The patient is resting comfortably and feels better, is alert and in no distress. The patients results and examination findings were discussed with the patient. The repeat examination is unremarkable and benign. The history, exam, diagnostic testing, and current condition do not suggest any significant pathology to warrant further testing, continued ED treatment, admission, or surgical evaluation at this point. The vital signs have been stable. The patient does not have uncontrollable pain, intractable vomiting, or other significant symptoms. The patient's condition is stable and appropriate for discharge. The patient will pursue further outpatient evaluation with a primary care physician or other designated or consulting physician as indicated in the discharge instructions. The patient expressed understanding and was agreeable with this plan. Diagnosis Primary Impression: Subclavian artery occlusive syndrome Additional Impression: Thyroid nodule Referrals: Primary Care Physician 1 week Additional Instruction: Avoid having your blood pressure taken in the left arm. Med/Other Pt SpecificInfo: No Change to Meds Disposition: 01 DISCHARGE HOME Condition: Stable Erin Rossi MD May 18, 2017 19:12
[2017-05-18 19:51] VITALS: BP 126/62; PULSE 56; RESP 16; O2SAT 96
[2017-05-18] MEDS ORDERED: ONDANSETRON HCL 4 MG/2 ML VIAL IV ONE (20:15)
--- NOTE | 2017-05-18 20:23 | RADRPT ---
EXAM DATE/TIME: 05/18/2017 19:13 [facility] COMPARISON: CTA UPPER EXTREMITY LEFT W 3D RECON, June 11, 2013, 5:25. INDICATIONS : Left upper arm pain, occlusion. IV CONTRAST: 74 cc Omnipaque 350 (iohexol) IV RADIATION DOSE: 8.15 CTDIvol (mGy) MEDICAL HISTORY : Cardiovascular disease. Chronic obstructive pulmonary disease. Pancreatitis.Reynauds disease. SURGICAL HISTORY : Appendectomy. Hysterectomy.Tubal ligation. ENCOUNTER: Initial ACUITY: 2 days PAIN SCALE: 9/10 LOCATION: Left upper arm. TECHNIQUE: Volumetric scanning was performed using a multirow detector CT scanner. Using automated exposure cont rol and adjustment of the mA and/or kV according to patient size, radiation dose was kept as low as r easonably achievable to obtain optimal diagnostic quality images. The data was post processed with a variety of visualization algorithms including full-volume maximum intensity projection, multiplanar sliding thin-slab reformation, curved-planar reformation, and surface-rendering techniques. Using au tomated exposure control and adjustment of the mA and/or kV according to patient size, radiation dose was kept as low as reasonably achievable to obtain optimal diagnostic quality images. DICOM format image data is available electronically for review and comparison. FINDINGS: There is occlusion of the proximal portion of the left subclavian artery with filling of the left sub clavian artery distal to the left vertebral artery likely related to subclavian steal syndrome with r etrograde flow within the left vertebral artery. The left axillary and brachial arteries are widely p atent without stenosis or occlusion. The left radial and ulnar arteries are also widely patent withou t segment stenosis or occlusion. Note is made of a 2.2 cm left thyroid nodule. CONCLUSION: 1. Occlusion of the proximal portion of the left subclavian artery with filling of the left subclavia n artery distal to the left vertebral artery likely related to subclavian steal syndrome with retrogr portia flow within the left vertebral artery. Clinical correlation is recommended. The remainder of the left upper extremity arteries are widely patent. 2. 2.2 cm left thyroid nodule. Gen Chambers MD on May 18, 2017 at 20:16 Board Certified Radiologist. This report was verified electronically.
== END 2017-05-18 21:17 | disposition home or self-care (01) ==
LOC: NEPE 11:30
DX: I70.8 Atherosclerosis of other arteries (principal); E04.1 Nontoxic single thyroid nodule; I73.00 Raynaud's syndrome without gangrene; F41.9 Anxiety disorder, unspecified; J44.9 Chronic obstructive pulmonary disease, unspecified; K21.9 Gastro-esophageal reflux disease without esophagitis; F17.210 Nicotine dependence, cigarettes, uncomplicated; Z79.82 Long term (current) use of aspirin; Z87.19 Personal history of other diseases of the digestive system
CPT/HCPCS: 73206; 80053; 85025; 85610; 85730; 96374; 96375; 96376; 99285; J1170; J2405; Q9967

== ENCOUNTER 2017-07-07 12:56 | Emergency (ER) | payer MEDICARE, MEDICAID ==
[~2017-07-07] VITALS: Ht 165.1 cm; Wt 79.5 kg
[~2017-07-07 12:56] MED LIST changes: -ALBUAER3 INH; -ASPI-183 PO
[2017-07-07 12:59] VITALS: BP 181/74; PULSE 104; RESP 14; TEMP 98.2; O2SAT 99
[2017-07-07] MEDS ORDERED: PLAV75TA29 PO (13:40)
--- NOTE | 2017-07-07 13:45 | PD ---
HPI Chief Complaint: Musculoskeletal Complaint Time Seen by Provider: 13:06 Travel History International Travel<30 days: No Contact w/Intl Traveler<30days: No Traveled to known affect area: No History of Present Illness HPI The patient is a 56-year-old female who presents to the emergency department for left upper extremity pain. The patient recently underwent surgery for left subclavian steal syndrome at the [facility] [place] [facility] in [place], [place]. The patient states she had a stent placed to the subclavian artery and was discharged home last week. The patient's surgery was performed last Wednesday. The patient then developed ecchymosis and pain in the left arm last night and this morning. She complains of ecchymosis from the left humerus inferiorly to the wrist. Complains of pain of the entire arm especially over the antecubital fossa and extensor surface of the left forearm. She also complains of tingling to the left hand, but denies any actual weakness. She denies any coolness to the area, does state the arm feels warm compared to the right arm. The patient called her surgeon, Dr. Cota, the [facility] [place] [facility] who referred her to the emergency department. She is currently on Plavix and aspirin, denies any other novel anticoagulants. She denies any chest pain or shortness of breath, however, does state the pain radiates up the left arm to the left axilla. 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 ) Anxiety: Yes Depression: No Heart Rhythm Problems: Yes (MURMUR) Cancer: No Cardiac Catheterization: No Cardiovascular Problems: Yes High Cholesterol: No Chemotherapy: No Chest Pain: No Congestive Heart Failure: No COPD: Yes Cerebrovascular Accident: No Diabetes: No Diminished Hearing: No Endocrine: No Gastrointestinal Disorders: Yes (PANCREATITIS) GERD: Yes Genitourinary: No Headaches: No Hiatal Hernia: No Heparin Induced Thrombocytopen: No Hypertension: No Immune Disorder: Yes (reynauds, vasculitis, REESE) Implanted Vascular Access Dvce: No Kidney Stones: No Musculoskeletal: Yes (left paralyzed foot) Neurologic: Yes Psychiatric: Yes Reproductive: No Respiratory: No Immunizations Current: No Migraines: Yes Myocardial Infarction: No Pancreatitis: Yes Radiation Therapy: No Renal Failure: No Seizures: No Sickle Cell Disease: No Sleep Apnea: No Thyroid Disease: No Menopausal: Yes Dilation and Curettage (D&C): Yes Tubal Ligation: Yes Past Surgical History AICD: No Appendectomy: Yes Arteriovenous Shunt: No Body Medical Devices: GEL BREAST IMPLANTS removed Cardiac Surgery: No Coronary Artery Bypass Graft: No Ear Surgery: No Endocrine Surgery: No Eye Surgery: Yes (L orbital fx and subsequent plate 2008) Gynecologic Surgery: Yes (HYSTERECTOMY,D&C, TUBAL LIGATION) Hysterectomy: Yes Insulin Pump: No Joint Replacement: No Neurologic Surgery: No Oral Surgery: Yes Pacemaker: No Thoracic Surgery: No Tonsillectomy: Yes Other Surgery: Yes (PILONIDAL CYST/ Breast implants and explants) Social History Alcohol Use: Yes (OCC) Tobacco Use: Yes ("Few cigarettes per day" ) Substance Use: No Allergies-Medications (Allergen,Severity, Reaction): Coded Allergies: vancomycin (Verified Allergy, Severe, Anaphylaxis, 07/07/17) 12/24/16 Reported Meds & Prescriptions Reported Meds & Active Scripts Active Aspirin 81 Mg Chew 81 Mg CHEW DAILY Reported Plavix (Clopidogrel Bisulfate) 75 Mg Tab 75 Mg PO DAILY Vitamin D3 (Cholecalciferol) 1,000 Unit Cap Unknown Dose PO DAILY Omeprazole 40 Mg Cap 40 Mg PO DAILY Miralax Powder (Polyethylene Glycol 3350 Powder) 17 Gm Powd 17 Gm PO DAILY Mix and dissolve one measuring cap-ful (17 grams) in water or juice. Dilaudid (Hydromorphone HCl) 2 Mg Tab 2 Mg PO BID Gabapentin 800 Mg Tab 800 Mg PO TID Folic Acid 1 Mg Tablet 1 Mg PO HS Prozac (Fluoxetine HCl) 20 Mg Cap 20 Mg PO BID Imuran (Azathioprine) 50 Mg Tab 50 Mg PO BID Hazardous agent: use appropriate precautions for handling and disposal. Prednisone 10 Mg Tab 10 Mg PO DAILY Calcium Carbonate 1,500 Mg Tab 500 Mg PO BID 1,500 mg calcium carbonate (600 mg elemental calcium) Xanax (Alprazolam) 0.5 Mg Tab 0.5 Mg PO BID PRN Review of Systems Except as stated in HPI: all other systems reviewed are Neg General / Constitutional: No: Fever Cardiovascular: No: Chest Pain or Discomfort Respiratory: No: Shortness of Breath Gastrointestinal: No: Nausea, Vomiting, Abdominal Pain Musculoskeletal: Positive: Pain, No: Edema Neurologic: Positive: Paresthesia Physical Exam Narrative GENERAL: Awake, alert, pleasant 56-year-old female who appears her stated age and is in no acute respiratory distress. SKIN: Focused skin assessment warm/dry. HEAD: Atraumatic. Normocephalic. EYES: Pupils equal and round. No injection or drainage. ENT: No nasal bleeding or discharge. Mucous membranes pink and moist. NECK: Trachea midline. No JVD. CARDIOVASCULAR: Regular rate and rhythm. No murmur appreciated. RESPIRATORY: No accessory muscle use. Clear to auscultation. Breath sounds equal bilaterally. GASTROINTESTINAL: Abdomen soft, non-tender, nondistended. MUSCULOSKELETAL: The left upper extremity does have ecchymosis in a circumferential fashion from the proximal one third of the humerus to the elbow , there is some ecchymosis noted over the extensor surface the left forearm. Positive radial pulse and ulnar pulse to palpation. Intrinsic hand muscles are intact. Small nodule just proximal to the left ACS which is tender, but not pulsating. She is able fully flex and extend the left wrist, flex and extend left elbow as well as supinate and pronate the left forearm. Positive left brachial pulses noted. NEUROLOGICAL: Awake and alert. No obvious cranial nerve deficits. Motor grossly within normal limits. Normal speech. Sensation was intact to soft touch of the radial, median, and ulnar distribution of the left upper extremity. PSYCHIATRIC: Appropriate mood and affect; insight and judgment normal. Data Data Last Documented VS Vital Signs Date Time Temp Pulse Resp B/P (MAP) Pulse Ox O2 Delivery O2 Flow Rate FiO2 07/07/17 15:54 16 07/07/17 15:27 97.8 84 128/62 (84) 98 Room Air Orders Orders Complete Blood Count With Diff (07/07/17 13:24) Comprehensive Metabolic Panel (07/07/17 13:24) Act Partial Throm Time (Ptt) (07/07/17 13:24) Prothrombin Time / Inr (Pt) (07/07/17 13:24) Morphine Inj (Morphine Inj) (07/07/17 14:15) Ondansetron Inj (Zofran Inj) (07/07/17 14:15) Hydromorphone Pf Inj (Dilaudid Pf Inj) (07/07/17 15:15) Clindamycin 600 Mg/Ns Premix (Cleocin 60 (07/07/17 15:15) Blood Culture (07/07/17 15:05) Lactic Acid (07/07/17 15:05) Us Arm Venous Doppler (07/07/17 15:38) Us Arm, Arterial Doppler (07/07/17 ) Labs Laboratory Tests Test 07/07/17 13:30 07/07/17 15:20 White Blood Count 16.8 TH/MM3 Red Blood Count 3.96 MIL/MM3 Hemoglobin 11.2 GM/DL Hematocrit 34.2 % Mean Corpuscular Volume 86.3 FL Mean Corpuscular Hemoglobin 28.2 PG Mean Corpuscular Hemoglobin Concent 32.7 % Red Cell Distribution Width 16.9 % Platelet Count 593 TH/MM3 Mean Platelet Volume 6.8 FL Neutrophils (%) (Auto) 85.7 % Lymphocytes (%) (Auto) 9.7 % Monocytes (%) (Auto) 4.1 % Eosinophils (%) (Auto) 0.0 % Basophils (%) (Auto) 0.5 % Neutrophils # (Auto) 14.4 TH/MM3 Lymphocytes # (Auto) 1.6 TH/MM3 Monocytes # (Auto) 0.7 TH/MM3 Eosinophils # (Auto) 0.0 TH/MM3 Basophils # (Auto) 0.1 TH/MM3 CBC Comment DIFF FINAL Differential Comment Prothrombin Time 9.8 SEC Prothromb Time International Ratio 1.0 RATIO Activated Partial Thromboplast Time 20.9 SEC Blood Urea Nitrogen 20 MG/DL Creatinine 0.98 MG/DL Random Glucose 102 MG/DL Total Protein 6.9 GM/DL Albumin 3.4 GM/DL Calcium Level 8.8 MG/DL Alkaline Phosphatase 82 U/L Aspartate Amino Transf (AST/SGOT) 9 U/L Alanine Aminotransferase (ALT/SGPT) 15 U/L Total Bilirubin 0.4 MG/DL Sodium Level 138 MEQ/L Potassium Level 4.3 MEQ/L Chloride Level 103 MEQ/L Carbon Dioxide Level 27.4 MEQ/L Anion Gap 8 MEQ/L Estimat Glomerular Filtration Rate 59 ML/MIN Lactic Acid Level 1.4 mmol/L MDM Medical Decision Making Medical Screen Exam Complete: Yes Emergency Medical Condition: Yes Medical Record Reviewed: Yes Interpretation(s) Laboratory Tests Test 07/07/17 13:30 White Blood Count 16.8 TH/MM3 Red Blood Count 3.96 MIL/MM3 Hemoglobin 11.2 GM/DL Hematocrit 34.2 % Mean Corpuscular Volume 86.3 FL Mean Corpuscular Hemoglobin 28.2 PG Mean Corpuscular Hemoglobin Concent 32.7 % Red Cell Distribution Width 16.9 % Platelet Count 593 TH/MM3 Mean Platelet Volume 6.8 FL Neutrophils (%) (Auto) 85.7 % Lymphocytes (%) (Auto) 9.7 % Monocytes (%) (Auto) 4.1 % Eosinophils (%) (Auto) 0.0 % Basophils (%) (Auto) 0.5 % Neutrophils # (Auto) 14.4 TH/MM3 Lymphocytes # (Auto) 1.6 TH/MM3 Monocytes # (Auto) 0.7 TH/MM3 Eosinophils # (Auto) 0.0 TH/MM3 Basophils # (Auto) 0.1 TH/MM3 CBC Comment DIFF FINAL Differential Comment Prothrombin Time 9.8 SEC Prothromb Time International Ratio 1.0 RATIO Activated Partial Thromboplast Time 20.9 SEC Blood Urea Nitrogen 20 MG/DL Creatinine 0.98 MG/DL Random Glucose 102 MG/DL Total Protein 6.9 GM/DL Albumin 3.4 GM/DL Calcium Level 8.8 MG/DL Alkaline Phosphatase 82 U/L Aspartate Amino Transf (AST/SGOT) 9 U/L Alanine Aminotransferase (ALT/SGPT) 15 U/L Total Bilirubin 0.4 MG/DL Sodium Level 138 MEQ/L Potassium Level 4.3 MEQ/L Chloride Level 103 MEQ/L Carbon Dioxide Level 27.4 MEQ/L Anion Gap 8 MEQ/L Estimat Glomerular Filtration Rate 59 ML/MIN Last Impressions Upper Extremity Ultrasound 07/07/17 1538 Signed Impressions: Service Date/Time: Friday, July 07, 2017 15:18 - CONCLUSION: No deep venous thrombosis. Gee Montesinos MD Arterial Ultrasound 07/07/17 0000 Signed Impressions: Service Date/Time: Friday, July 07, 2017 15:18 - CONCLUSION: Negative for occlusion. Izaiah Toney MD FACR Lactic acid normal Blood culture pending Differential Diagnosis Differential diagnosis includes DVT, postoperative complication, aneurysm, pseudoaneurysm, coagulopathy, neuropathy. Narrative Course IV was established, labs are drawn and sent, and the patient was placed on cardiac telemetry monitoring and continuous pulse oximetry monitoring. The patient was administered morphine and Zofran for her discomfort. Ultrasound of the left upper extremity was ordered. A call was placed to the patient's surgeon, Dr. Cota, at 1:30 PM. I discussed the patient with Dr. Cota, after discussion the patient had an ultrasound and arterial Doppler of the left upper extremity. There is no DVT. Peak velocities within normal limits, no obvious pseudoaneurysm, hematoma, or abscess. The patient is worried about cellulitis, she does have a white count of 16.8, however, is on prednisone. She is afebrile. After discussion was agreed blood cultures and lactic gas were ordered and then the patient received clindamycin 600 mg intravenously. Lactic acid is normal. Blood cultures are pending. I discussed the patient once again with Dr. Cota at [phone], after discussion was agreed the patient be discharged home on clindamycin and pain medication. She will be provided a copy of her labs and ultrasound findings at discharge. She will contact her physician's office tomorrow and/or her physician will call her at home tomorrow. The patient is advised to return if symptoms worsen or progress. Diagnosis Primary Impression: Pain of left upper extremity Patient Instructions: General Instructions Additional Instructions: Medications as directed. Follow-up with her primary physician. Elevate and ice. Call your physician's office tomorrow if you have not heard from your physician by 3 PM. Return if symptoms worsen or progress. Please provide the patient a copy of both her ultrasound results and lab results at discharge. Med/Other Pt SpecificInfo: Prescription(s) given Scripts Clindamycin (Cleocin) 150 Mg Cap 150 MG PO Q6H for Infection for 10 Days, #40 CAP 0 Refills Prov: Jaspal Reid MD 07/07/17 Oxycodone-Acetaminophen (Percocet) 10-325 mg Tab 1 TAB PO Q6H Y for PAIN, #12 TAB 0 Refills Prov: Jaspal Reid MD 07/07/17 Disposition: DISCHARGE HOME Condition: Stable Jaspal Reid MD Jul 07, 2017 13:45
[2017-07-07 14:13] LABS: AUTOMATED NEUTROPHIL # 14.4 TH/MM3 (1.8-7.7); BASOPHIL # 0.1 TH/MM3 (0-0.2); BASOPHIL % 0.5 % (0.0-2.0); HEMATOCRIT 34.2 % (35.0-46.0); HEMOGLOBIN 11.2 GM/DL (11.6-15.3); LYMPH % 9.7 % (9.0-44.0); LYMPHOCYTE # 1.6 TH/MM3 (1.0-4.8); MEAN CELL VOLUME 86.3 FL (80.0-100.0); MEAN CORPUSCULAR HEMOGLOBIN 28.2 PG (27.0-34.0); MEAN CORPUSCULAR HGB CONC 32.7 % (32.0-36.0); MEAN PLATELET VOLUME 6.8 FL (7.0-11.0); MONO % 4.1 % (0.0-8.0); MONOCYTE # 0.7 TH/MM3 (0-0.9); NEUT % 85.7 % (16.0-70.0); PLATELET COUNT 593 TH/MM3 (150-450); RED BLOOD COUNT 3.96 MIL/MM3 (4.00-5.30); RED CELL DISTRIBUTION WIDTH 16.9 % (11.6-17.2); WHITE BLOOD COUNT 16.8 TH/MM3 (4.0-11.0)
[2017-07-07] MEDS ORDERED: MORPHINE SULFATE 4 MG/ML INJ IV PUSH ONE (14:15)
[2017-07-07] MEDS ORDERED: ONDANSETRON HCL 4 MG/2 ML VIAL IV PUSH ONE (14:15)
[2017-07-07 14:18] VITALS: BP 121/58; PULSE 84; RESP 17; TEMP 97.8; O2SAT 98
[2017-07-07 14:27] LABS: ALBUMIN 3.4 GM/DL (3.4-5.0); ALT (GPT) 15 U/L (10-53); AST (GOT) 9 U/L (15-37); BICARBONATE 27.4 MEQ/L (21.0-32.0); BLOOD UREA NITROGEN 20 MG/DL (7-18); CALCIUM 8.8 MG/DL (8.5-10.1); CHLORIDE 103 MEQ/L (98-107); CREATININE 0.98 MG/DL (0.50-1.00); GLOMERULAR FILTRATION RATE 59 ML/MIN (>89); GLUCOSE,RANDOM 102 MG/DL (74-106); PROTHROMBIN TIME - PATIENT 9.8 SEC (9.8-11.6); SODIUM (NA) 138 MEQ/L (136-145)
[2017-07-07 14:29] LABS: ALKALINE PHOSPHATASE 82 U/L (45-117); TOTAL BILIRUBIN ADULT 0.4 MG/DL (0.2-1.0); TOTAL PROTEIN 6.9 GM/DL (6.4-8.2)
[2017-07-07] MEDS ORDERED: CLINDAMYCIN 600 MG/NS PREMIX 50 ML IV ONE (15:15)
[2017-07-07] MEDS ORDERED: HYDROmorphone HCL PF 2 MG/ML VIAL IV PUSH ONE (15:15)
[2017-07-07 15:27] VITALS: BP 128/62; PULSE 84; RESP 17; TEMP 97.8; O2SAT 98
[2017-07-07 15:54] VITALS: RESP 16
--- NOTE | 2017-07-07 16:24 | RADRPT ---
EXAM DATE/TIME: 07/07/2017 15:18 [facility] COMPARISON: No previous studies available for comparison. INDICATIONS : Pain in left arm. MEDICAL HISTORY : Migraines. Anticoagulant therapy. Heart murmur. COPD. Pancreatitis. GERD. Osteoporosis. Reynauds dise ase. Blood dyscrasias. Breast implants and removal. SURGICAL HISTORY : Tonsillectomy. Appendectomy. Hysterectomy. Left orbital fracture with plate placement. D&C. Tubal li gation. Left foot surgery. ENCOUNTER: Initial ACUITY: 1 day PAIN SCORE: 8/10 LOCATION: Left Arm. FINDINGS: There is spontaneous flow documented in the brachial, basilic, cephalic, axillary, and subclavian vei ns. The vessels are compressible and augmentation response is documented. No filling defects are se en. The flow is phasic with respiration. Direction of flow in the jugular vein is caudal. CONCLUSION: No deep venous thrombosis. Gee Montesinos MD on July 07, 2017 at 16:14 Board Certified Radiologist. This report was verified electronically.
--- NOTE | 2017-07-07 16:40 | RADRPT ---
EXAM DATE/TIME: 07/07/2017 15:18 [facility] COMPARISON: No previous studies available for comparison. INDICATIONS : Left arm pain. MEDICAL HISTORY : Migraines. Anticoagulant therapy. Heart murmur. COPD. Pancreatitis. GERD. Osteoporosis. Reynauds disease. Blood dyscrasias. Breast implants and removal. SURGICAL HISTORY : Tonsillectomy. Appendectomy. Hysterectomy. Left orbital fracture with plate pl acement. D&C. Tubal ligation. Left foot surgery. ENCOUNTER: Initial ACUITY: 1 day PAIN SCORE: 8/10 LOCATION: Left arm. PEAK SYSTOLIC VELOCITIES (cm/sec): SUBCLAVIAN ARTERY: Left: 104 cm/sec AXILLARY ARTERY: Left: 88 cm/sec BRACHIAL ARTERY: Left: 76 cm/sec RADIAL ARTERY: Left: 87 cm/sec ULNAR ARTERY: Left:73 cm/sec FINDINGS: Negative for occlusion. Minimal gradient from subclavian axillary artery questionable significance. CONCLUSION: Negative for occlusion. Izaiah Toney MD FACR on July 07, 2017 at 16:35 Board Certified Radiologist. This report was verified electronically.
[2017-07-07] MEDS ORDERED: PERC10TA27 PO (17:10)
[2017-07-07] MEDS ORDERED: CLIN150 PO (17:10)
[2017-07-07] MEDS ORDERED: oxyCODONE/ACETAMINOPHEN 10 MG/325 MG TAB PO ONE (17:15)
[2017-07-07 17:20] VITALS: BP 128/83; TEMP 97.9
== END 2017-07-07 17:50 | disposition home or self-care (01) ==
LOC: NEPC 12:56
DX: M79.602 Pain in left arm (principal); R20.2 Paresthesia of skin; I73.00 Raynaud's syndrome without gangrene; F41.9 Anxiety disorder, unspecified; R01.1 Cardiac murmur, unspecified; J44.9 Chronic obstructive pulmonary disease, unspecified; K21.9 Gastro-esophageal reflux disease without esophagitis; F17.210 Nicotine dependence, cigarettes, uncomplicated; Z87.19 Personal history of other diseases of the digestive system
CPT/HCPCS: 80053; 83605; 85025; 85610; 85730; 87040; 93931; 93971; 96365; 96375; 99285; J1170; J2270; J2405